=== PATIENT | female | born 1960 | race Caucasian/White ===

== ENCOUNTER 2016-10-16 16:20 | Inpatient (IN) | payer SELFPAY ==
[~2016-10-16] VITALS: Ht 167.6 cm; Wt 78.1 kg
--- NOTE | 2016-10-16 14:16 | NUR ---
ADMISSION TO MEDICAL UNIT VSS. RA. RATING PAIN IN LEFT KNEE 03/30. TRANSFERRED FROM WHEELCHAIR TO BED WITH X1 ASSIST, PIVOT. MOTHER IN LAW PRESENT.
--- OUTSIDE RECORDS SUMMARY | 2016-10-16 16:29 | XMS REPORT | Continuity of Care Document ---
Author Author [facility] Address [address] [place] [address] Care Team Providers Care Licensed Midwife Name Role Shaniqua Gambino AMILCAR Casanova Unavailable Unavailable Insurance Providers Payer Name Policy Number Subscriber Name Relationship Self-Pay Self-Pay NEFTALY AYOUB Self Advance Directives Directive Response Recorded Date/Time Advance Directive Information: AD BROCHURE GIVEN TO PT 10/02/16 3:15pm Chief Complaint and Reason for Visit Reason for Visit FALL Problems Active Medical Problems Problem Onset Date Recorded Date Status Influenza due to Influenza A virus Unknown 06/17/13 Active High ankle sprain of right lower extremity Unknown 04/20/15 Active Sinusitis chronic, frontal Unknown 08/19/16 Active GERD (gastroesophageal reflux disease) Unknown 09/04/16 Active Fall Unknown 10/02/16 Active Hip pain, bilateral Unknown 10/02/16 Active Knee pain, bilateral Unknown 10/02/16 Active Medications Current Home Medications Medication Dose Units Route Directions Days/Qty Instructions Start Date Omeprazole (Prilosec 20MG CAP) 20 MG UD.CAP 20 MG BY MOUTH TWICE DAILY 20 09/24/16 Ondansetron (Zofran Odt) 4 MG TAB.RAPDIS 4 MG BY MOUTH EVERY 6 HOURS NEEDED PRN NAUSEA AND VOMITING Sodium Chloride 1 GM TAB 1 GM BY MOUTH DAILY Past Home Medications Medication Directions Ordered Status [Energy Supplement] , Po DAILY Unknown Discontinued Multivits, Dayron, Min/Folic Acid (Multi For Her 50 Plus Softgel) 400 Mcg Capsule Capsule, 1 Cap Po DAILY Unknown Discontinued Sulfamethoxazole/Trimethoprim* (Bactrim Ds 800-160 Mg*) 1 Each Tablet Tablet, 1 Tab By Mouth EVERY 12 HOURS Unknown Discontinued Social History Problem Response Recorded Date Drug Use none 04/20/15 Alcohol Use none 04/20/15 Hospital Discharge Instructions No hospital discharge instructions. Plan of Care Discharge Date 10/02/16 Disposition HOME/SELF CARE Condition at Discharge Stable Instructions/Education Provided Fall Prevention (ED) Prescriptions See Medications Section Referrals Jocelyne Gambino APRN - Additional Instructions/Education Home to rest. There are no fractures present. Be sure to change positions carefully. Follow up with your primary care provider early next week. Return with new or worsening symptoms. Care Plan and Goals Problem: Fall Goal: Prevention of further falls. Plan: Refer to patient instructions provided. Functional Status No functional status results. Allergies, Adverse Reactions, Alerts Allergen Type Severity Reaction Status Last Updated No Known Allergies Allergy Unknown Active 10/02/16 Immunizations Name Date Given Type *Flu Shot: None Historical *Tetanus Shot: Less than 5 Years Historical Vital Signs Vital Reading Collection Date/Time Result Blood Pressure 10/02/16 3:32pm 108/58 Patient Temperature 10/02/16 3:32pm 97.2 Temperature Source 10/02/16 3:32pm Temporal Respiratory Rate 10/02/16 3:32pm 18 Height 10/02/16 3:32pm 5 ft 6 in Weight 10/02/16 3:32pm 150 lb 7 oz Body Mass Index 10/02/16 3:32pm 24.3 Pulse Rate 09/29/16 9:14am 90 Bedside Pulse Oximetry 09/29/16 9:14am 98 Height 09/29/16 7:03am 167.64 cm Weight 09/29/16 7:03am 68.039 kg Results [place] [id number] ED PHYSICIAN DOCUMENTATION Patient Name: NEFTALY AYOUB : 62 Unit #: [id number] Patient's Service Date: 09/24/16 ED Physician: Anna Copeland MD (ED) Primary Physician: Jocelyne Gambino APRN History of Present Illness General Chief Complaint abdominal pain Stated Complaint abdominal pain Time Seen by Provider 1040 Source patient Exam Limitations no limitations History of Present Illness Initial Comments The patient has chronic abdominal pain. She was here in the ED recently and diagnosed with GERD. She did drink alcohol heavily but reports she has not drank alcohol since her previous visit to the ED. Location abdomen Context with history of GERD Quality achy Severity moderate Duration chronic but worse Timing continuous Associated Symptoms dry heaves Allergies Coded Allergies: No Known Allergies (09/24/16) Home Medications Reported Medications Sodium Chloride 1 GM BY MOUTH DAILY Sulfamethoxazole/Trimethoprim* (Bactrim DS 800-160 MG*) 1 TAB BY MOUTH Q12H Ondansetron (Zofran Odt) 4 MG BY MOUTH Q6H PRN PRN NAUSEA AND VOMITING Hydrocodone 5MG/Acet 325MG ([place] 5-325 Tablet) 1 TAB BY MOUTH Q4H PRN PRN PAIN Review of Systems Review of Systems Was ROS Completed? Yes Constitutional Reports chills, Denies fever ENT Denies nose congestion Respiratory Denies cough, Denies short of breath Cardiovascular Denies chest pain Gastrointestinal Reports abdominal pain, Reports constipation, Reports nausea, Reports vomiting ( dry heaves), Denies diarrhea, Denies bloody stools Genitourinary Reports decreased urination, Reports other (dark urine) Musculoskeletal Denies back pain Past Medical History Past Medical History Medical History GERD Surgical History hysterectomy, left shoulder surgery Social History Smoker Current every day smoker Alcohol (Age 13 & Up) denies alcohol use (for the past few weeks) Drugs (Age 13 & Up) denies drug use Physical Exam Physical Exam Nursing Assessment Reviewed Yes Initial Vital Signs Vital Signs Result Date Time Pulse Ox 100 09/24 1038 B/P 98/67 09/24 1038 Temp 97.0 09/24 1038 Pulse 127 09/24 1038 Resp 18 09/24 1038 Constitutional well developed, well nourished, no apparent distress Ear, Nose, Throat hearing grossly normal Neck normal inspection, supple Respiratory no respiratory distress, normal breath sounds, no accessory muscle use Cardiovascular regular rate/rhythm, no murmur Gastrointestinal soft, normal bowel sounds, tenderness (mild epigastric) Musculoskeletal normal strength Skin normal color, warm/dry Neurological no motor deficit Psychiatric alert, oriented, normal mood/affect Results Results Labs Laboratory Tests 09/24 09/24 1055 1121 Chemistry Sodium (135 - 150 mmol/L) 131 L Potassium (3.4 - 5.2 mmol/L) 3.8 Chloride (100 - 112 mmol/L) 94 L Carbon Dioxide (21 - 33 meq/L) 25 Anion Gap (8 - 16 mmol/L) 12 BUN (5 - 21 mg/dl) 10 Creatinine (0.60 - 1.30 mg/dl) 1.13 GFR Calculation (> 60 mL/Min) 53 Glucose (70 - 99 mg/dl) 124 H Calcium (8.6 - 10.5 mg/dl) 10.2 Total Bilirubin (0.0 - 1.2 mg/dl) 0.8 AST (6 - 37 U/L) 32 ALT (12 - 78 U/L) 32 Alkaline Phosphatase (46 - 116 U/L) 110 Total Protein (6.4 - 8.2 g/dl) 7.3 Albumin (3.3 - 4.5 g/dl) 3.3 Albumin/Globulin Ratio (0.7 - 2.0) 0.8 Lipase (65 - 230 U/L) 118 Hematology WBC (4.5 - 11.0 10^3/uL) 8.0 RBC (3.50 - 5.40 10^6/uL) 3.98 Hgb (12.0 - 16.0 g/dl) 15.4 Hct (36 - 48 %) 46.3 MCV (79 - 99 fL) 116.4 H MCH (25.0 - 34.0 pg) 38.7 H MCHC (31.0 - 36.0 g/dL) 33.2 RDW (11.0 - 15.0 %) 18.0 H Plt Count (130 - 400 10^3/uL) 339 MPV (7.0 - 11.0 fL) 8.9 Neutrophils (Manual) (50 - 65 %) 74 H Neutrophils # (1.0 - 8.0 #) 5.9 Lymphocytes (Manual) (15 - 45 %) 23 Lymphocytes # (1.0 - 3.0 #) 1.8 Monocytes (Manual) (0 - 10 %) 3 Monocytes # (0.0 - 1.0 #) 0.2 Eosinophils # (0.0 - 0.4 #) 0.0 Basophils # (0.0 - 0.2 #) 0.0 Anisocytosis 2+ Macrocytosis 3+ Toxicology Serum Alcohol (0 mg/dl) 0 Urines Urine Color (Yellow) Yellow Urine Appearance (Clear) Turbid H Urine pH (4.5 - 7.5) 7.5 Ur Specific [place] (1.010 - .025) 1.020 Urine Protein (Negative) 1+ H Urine Ketones (Negative) Trace H Urine Blood (Negative) Negative Urine Nitrate (Negative) Negative Urine Bilirubin (Negative) 1+ H Urine Urobilinogen (<=1.0) 1.0 Ur Leukocyte Esterase (Negative) Negative Urine WBC (0 - 5) 10 - 25 H Ur Epithelial Cells (5 - 10) 5 - 10 Ur Renal Epithelial Cell (0 - 2) 2 - 5 Amorphous Crystals (None Seen) 2+ H Urine Bacteria (Trace) 1+ H Hyaline Casts (0 - 4) 2 - 4 Urine Mucus (None Seen) 1+ H Urine Glucose (Negative) Negative Microbiology Microbiology Date/Time Procedure - Status Source Growth 09/24 1121 Urine Culture - RECD UA Cath Progress Note Medications Medications Medications Given in the ED Sig/Cindy Start time Last Medication Dose Route Stop Time Status Admin Famotidine/Sodium 50 ML X1ED STA 09/24 1039 DC 04/06 Chloride IV 09/24 1053 1100 (FAMOTIDINE) Lidocaine/Diphenhydr/ 30 ML X1ED STA 09/24 1151 DC Alum/Mg/Simeth BY MOUTH 09/24 1152 (GI COCKTAIL) Ondansetron HCl 4 MG X1ED STA 09/24 1039 DC 04/06 (ZOFRAN) IV 09/24 1040 1057 Sodium Chloride 1,000 ML .Q1H 09/24 1039 DC 04/06 (0.9% Sodium IV 09/24 1138 1055 Chloride) Progress Note Progress Note Time 1158 Progress Note Lynnette NAYLOR arranged follow up with Dr. Hodge for possible EGD Departure Departure Clinical Impression Primary Impression: GERD (gastroesophageal reflux disease) Qualifiers: Esophagitis presence: esophagitis presence not specified Qualified Code: K21.9 - malik-esophageal reflux disease without esophagitis Time of Disposition 1159 Disposition HOME/SELF CARE Condition Improved Tobacco Education Education Handout Given Patient Instructions Gastroesophageal Reflux Disease (ED), How to Stop Smoking ( ED) Referrals Jocelyne Gambino APRN (PCP) Additional Instructions Follow up on Wednesday at [address] Hodge. Return to the ED as needed. Take prilosec 20 mg twice daily and zofran as prescribed. Prescriptions Current Visit Scripts Omeprazole (Prilosec 20MG CAP) 20 MG BY MOUTH BID #20 CAP Ondansetron Odt (Zofran Odt) 1 TAB BY MOUTH Q6H PRN PRN NAUSEA AND VOMITING #15 TAB Anna Copeland MD Electronically Signed 09/24/16 1202 Procedures Procedure Status Date Provider(s) EGD BIOPSY SINGLE/MULTIPLE Completed 09/29/16 Juan Hodge MD Encounters Encounter Location Arrival/Admit Date Discharge/Depart Date Attending Provider Departed Emergency [facility] 10/02/16 3:15pm 10/02/16 4:10pm Min, (ED) Anna Meeks MD Registered Clinical [facility] 10/01/16 0:55am AMILCAR Gambino Departed Surgical Day Care [facility] 09/29/16 0:06am 09/29/16 9 :35am Juan Hodge MD Departed Emergency [facility] 09/24/16 10:36am 09/24/16 12:28pm Min (ED) Anna Meeks MD Departed Emergency [facility] 09/04/16 1:03pm 09/04/16 3:10pm Min (ED) Anna Meeks MD Departed Emergency [facility] 08/19/16 5:36pm 08/19/16 6:39pm Amrit Eugene MD Encounter Diagnosis Fall Bilateral hip pain Pain in both knees
--- OUTSIDE RECORDS SUMMARY | 2016-10-16 16:29 | XMS REPORT | Continuity of Care Document ---
Author Author [facility] Address [address] [place] [address] Care Team Providers Care Tea Room Manager Name Role Phone Abhishek Aden Unavailable [phone] Insurance Providers Payer Name Policy Number Subscriber Name Relationship [employer] [id number] NEFTALY ANITRA PATIENT/SELF Advance Directives Directive Response Recorded Date/Time Advance Directive Information: AD BROCHURE GIVEN TO PT 04/20/15 5:46pm Chief Complaint and Reason for Visit Reason for Visit High ankle sprain of right lower extremity Problems Medical Problems Problem Onset Date Status Influenza due to Influenza A virus Unknown Active High ankle sprain of right lower extremity Unknown Active Medications Medication Dose Route Sig Days/Qty Instructions Order Date Discontinued Date Status Multivits, Dayron, Min/Folic Acid (Multi For Her 50 Plus Softgel) 400 MCG CAPSULE 1 CAP OPHTHALMIC DAILY Active [ENERGY SUPPLEMENT] OPHTHALMIC DAILY 10/09/14 Discontinued Pantoprazole (Protonix) 40 MG UD.TAB 40 MG OPHTHALMIC DAILY Active Social History Social History Problem Response Recorded Date/Time Alcohol Use none 04/20/15 7:17pm Drug Use none 04/20/15 7:17pm Hospital Discharge Instructions No hospital discharge instructions. Plan of Care Discharge Date 04/20/15 9:05pm Disposition HOME/SELF CARE Condition at Discharge Satisfactory Instructions/Education Provided DI for Ankle Sprain Prescriptions See Medications Section Referrals Abhishek Aden Additional Instructions/Education YOU HAVE A HIGH ANKLE SPRAIN IT CAN HURT ON THE INSIDE MUCH IT HURTS THE OUTSIDE WEAR SPLINT TAKE 2 ALEVE IN AM AND 2 ALEVE IN THE PM DAILY FOLLOWUP WITH PRIMARY CARE OR ORTHOPEDICS Care Plan and Goals Problem: Ankle Injury Goal: Rule out or identify any ankle injury. Relief of pain, stabilize. Plan: Refer to patient instructions provided. Functional Status No functional status results. Allergies, Adverse Reactions, Alerts Allergen Type Severity Reaction Status Last Updated No Known Allergies Allergy Unknown Active 04/20/15 Immunizations Name Date Given Type *Flu Shot: None Historical *Tetanus Shot: Less than 10 Years Historical Vital Signs Vital Reading Collection Date/Time Result Blood Pressure 04/20/15 5:46pm 112/68 Patient Temperature 04/20/15 5:46pm 97.4 Temperature Source 04/20/15 5:46pm ORL Respiratory Rate 04/20/15 5:46pm 14 Pulse Rate 04/20/15 5:46pm 100 Bedside Pulse Oximetry 04/20/15 5:46pm 95 Height 04/20/15 5:46pm 5 ft 5 in Weight 04/20/15 5:46pm 160 lb Body Mass Index 04/20/15 5:46pm 26.6 Procedures No Known History of Procedures. Results Test Source Date Result Interp. Ref. Range Comments Basophils # 04/20/15 0.1 10^3/uL 0.0 - 0.2 Basophils % 04/20/15 1.2 % 0.0 - 2.0 Eosinophils # 04/20/15 0.2 10^3/uL 0.0 - 0.4 Eosinophils % 04/20/15 3.2 % 0.0 - 6.0 Hematocrit 04/20/15 43.2 % 36 - 48 Hemoglobin 04/20/15 14.4 g/dl 12.0 - 16.0 Lymphocytes # 04/20/15 1.9 10^3/uL 1.0 - 3.0 Lymphocytes % 04/20/15 39.3 % 15.0 - 45.0 Mean Corpuscular Hemoglobin 04/20/15 33.2 pg 25.0 - 34.0 Mean Corpuscular Hemoglobin Concent 04/20/15 33.4 g/dL 31.0 - 36.0 Mean Corpuscular Volume 04/20/15 99.5 fL H 79 - 99 Mean Platelet Volume 04/20/15 7.8 fL 7.0 - 11.0 Monocytes # 04/20/15 0.4 10^3/uL 0.0 - 1.0 Monocytes % 04/20/15 8.8 % 1.0 - 12.0 Neutrophils # 04/20/15 2.3 10^3/uL 1.0 - 8.0 Neutrophils % 04/20/15 47.5 % 43.0 - 72.0 Platelet Count 04/20/15 263 10^3/uL 130 - 400 Red Blood Count 04/20/15 4.35 10^6/uL 3.50 - 5.40 Red Cell Distribution Width 04/20/15 13.3 % 11.0 - 15.0 White Blood Count 04/20/15 4.8 10^3/uL 4.5 - 11.0 D-Dimer 04/20/15 < 0.27 ug/ml < 0.50 - Alanine Aminotransferase (ALT/SGPT) 04/20/15 40 U/L 12 - 78 Albumin 04/20/15 3.3 g/dl 3.3 - 4.5 Albumin/Globulin Ratio 04/20/15 0.9 0.7 - 2.0 Alkaline Phosphatase 04/20/15 130 U/L H 46 - 116 Anion Gap 04/20/15 10 mmol/L 8 - 16 Aspartate Amino Transf (AST/SGOT) 04/20/15 42 U/L H 6 - 37 Blood Urea Nitrogen 04/20/15 5 mg/dl 5 - 21 C-Reactive Protein, Quantitative 04/20/15 < 2.0 mg/L 0.0 - 9.0 Calcium Level 04/20/15 9.0 mg/dl 8.6 - 10.5 Carbon Dioxide Level 04/20/15 26 meq/L 21 - 33 Chloride Level 04/20/15 98 mmol/L L 100 - 112 Creatinine 04/20/15 0.70 mg/dl 0.60 - 1.30 Glomerular Filtration Rate Calc 04/20/15 > 60 mL/Min > 60 - Glucose Level 04/20/15 112 mg/dl H 70 - 99 Potassium Level 04/20/15 4.1 mmol/L 3.4 - 5.2 Sodium Level 04/20/15 134 mmol/L L 135 - 150 Total Bilirubin 04/20/15 0.2 mg/dl 0.0 - 1.2 Total Protein 04/20/15 6.9 g/dl 6.4 - 8.2 Uric Acid 04/20/15 4.8 mg/dl 2.4 - 6.4 Lymphocytes (Manual) 08/16/08 26 15 - 45 Manual Differential 08/16/08 Manual Diff - Monocytes (Manual) 08/16/08 3 0 - 10 Neutrophils (Manual) 08/16/08 71 H 50 - 65 Encounters Encounter Location Date/Time Departed [facility] 04/20/15 9:05pm Recent Diagnosis High ankle sprain of right lower extremity
--- OUTSIDE RECORDS SUMMARY | 2016-10-16 16:29 | XMS REPORT | Continuity of Care Document ---
Author Author [facility] Address [address] [place] [address] Care Team Providers Care Test Engineer Nuclear Equipment Name Role Shaniqua Gambino AMILCAR Casanova Unavailable Unavailable Insurance Providers Payer Name Policy Number Subscriber Name Relationship Self-Pay Self-Pay NEFTALY AYOUB Self Advance Directives Directive Response Recorded Date/Time Advance Directive Information: AD BROCHURE GIVEN TO PT 09/24/16 10:38am Chief Complaint and Reason for Visit Reason for Visit ABD PAIN Problems Active Medical Problems Problem Onset Date Recorded Date Status Influenza due to Influenza A virus Unknown 06/17/13 Active High ankle sprain of right lower extremity Unknown 04/20/15 Active Sinusitis chronic, frontal Unknown 08/19/16 Active GERD (gastroesophageal reflux disease) Unknown 09/04/16 Active Medications Current Home Medications Medication Dose Units Route Directions Days/Qty Instructions Start Date Hydrocodone 5MG/Acet 325MG ([place] 5-325 Tablet) 1 EACH TABLET 1 TAB BY MOUTH EVERY 4 HOURS NEEDED PRN PAIN Omeprazole (Prilosec 20MG CAP) 20 MG UD.CAP 20 MG BY MOUTH TWICE DAILY 20 09/24/16 Ondansetron (Zofran Odt) 4 MG TAB.RAPDIS 4 MG BY MOUTH EVERY 6 HOURS NEEDED PRN NAUSEA AND VOMITING Ondansetron Odt (Zofran Odt) 4 MG TAB 1 TAB BY MOUTH EVERY 6 HOURS NEEDED PRN NAUSEA AND VOMITING 15 09/24/16 Sodium Chloride 1 GM TAB 1 GM BY MOUTH DAILY Sulfamethoxazole/Trimethoprim* (Bactrim DS 800-160 MG*) 1 EACH TABLET 1 TAB BY MOUTH EVERY 12 HOURS Past Home Medications Medication Directions Ordered Status [Energy Supplement] , Po DAILY Unknown Discontinued Multivits, Dayron, Min/Folic Acid (Multi For Her 50 Plus Softgel) 400 Mcg Capsule Capsule, 1 Cap Po DAILY Unknown Discontinued Social History Problem Response Recorded Date Drug Use none 04/20/15 Alcohol Use none 04/20/15 Hospital Discharge Instructions No hospital discharge instructions. Plan of Care Discharge Date 09/24/16 Disposition HOME/SELF CARE Condition at Discharge Improved Instructions/Education Provided How to Stop Smoking (ED) Gastroesophageal Reflux Disease (ED) Prescriptions See Medications Section Referrals Jocelyne Gambino APRN - Additional Instructions/Education Follow up on Wednesday at [address] Hodge. Return to the ED as needed. Take prilosec 20 mg twice daily and zofran as prescribed. Care Plan and Goals Problem: Abdominal Pain Goal: Relief of abdominal pain. Plan: Refer to patient instructions provided. Functional Status No functional status results. Allergies, Adverse Reactions, Alerts Allergen Type Severity Reaction Status Last Updated No Known Allergies Allergy Unknown Active 09/24/16 Immunizations Name Date Given Type *Flu Shot: None Historical *Tetanus Shot: Unknown Historical Vital Signs Vital Reading Collection Date/Time Result Blood Pressure 09/24/16 1:09pm 117/71 Patient Temperature 09/24/16 10:38am 97 Temperature Source 09/24/16 10:38am Temporal Respiratory Rate 09/24/16 1:09pm 17 Pulse Rate 09/24/16 1:09pm 105 Bedside Pulse Oximetry 09/24/16 1:09pm 97 Height 09/24/16 10:38am 5 ft 6 in Weight 09/24/16 10:38am 150 lb Body Mass Index 09/24/16 10:38am 24.2 Results [place] [id number] ED PHYSICIAN DOCUMENTATION Patient Name: NEFTALY AYOUB : 62 Unit #: [id number] Patient's Service Date: 09/24/16 ED Physician: Anna Coepland MD (ED) Primary Physician: Jocelyne Gambino APRN [...] PRN NAUSEA AND VOMITING Hydrocodone 5MG/Acet 325MG ([place] 5-325 Tablet) 1 TAB BY MOUTH Q4H [...] pH (4.5 - 7.5) 7.5 Ur Specific [place] (1.010 - .025) 1.020 Urine Protein (Negative) [...] Copeland MD Electronically Signed 09/24/16 1202 Procedures No Known History of Procedures. Encounters Encounter Location Arrival/Admit Date Discharge/Depart Date Attending Provider Departed [facility] 09/24/16 10:36am 09/24/16 12:28pm Min (ED) Anna Meeks MD Departed [facility] 09/04/16 1:03pm 09/04/16 3:10pm Min (ED) Anna Meeks MD Departed [facility] 08/19/16 5:36pm 08/19/16 6:39pm Amrit Eugene MD Encounter Diagnosis Gastroesophageal reflux disease
--- OUTSIDE RECORDS SUMMARY | 2016-10-16 16:29 | XMS REPORT | Continuity of Care Document ---
Author Author [facility] Address [address] [place] [address] Care Team Providers Care Handhole Machine Operator Name Role Phone DOCTOR, OUT OF TOWN Unavailable Unavailable Insurance Providers Payer Name Policy Number Subscriber Name Relationship * [id number] NEFTALY AYOUB PATIENT/SELF Advance Directives Directive Response Recorded Date/Time Advance Directive Information: AD BROCHURE GIVEN TO PT 08/19/16 5:36pm Chief Complaint and Reason for Visit Reason for Visit THRTPAIN Problems Active Medical Problems Problem Onset Date Recorded Date Status Influenza due to Influenza A virus Unknown 06/17/13 Active High ankle sprain of right lower extremity Unknown 04/20/15 Active Sinusitis chronic, frontal Unknown 08/19/16 Active Medications Current Home Medications Medication Dose Units Route Directions Days/Qty Instructions Start Date Azithromycin* (Zithromax*) 500 MG TAB 500 MG BY MOUTH DAILY 3 08/19/16 Multivitamin (Daily Multiple Vitamin) 1 EACH TABLET 1 TAB BY MOUTH DAILY Pantoprazole (Protonix) 40 MG UD.TAB 40 MG BY MOUTH DAILY Past Home Medications Medication Directions Ordered Status [Energy Supplement] , Po DAILY Unknown Discontinued Multivits, Dayron, Min/Folic Acid (Multi For Her 50 Plus Softgel) 400 Mcg Capsule Capsule, 1 Cap Po DAILY Unknown Discontinued Social History Problem Response Recorded Date Drug Use none 04/20/15 Alcohol Use none 04/20/15 Hospital Discharge Instructions No hospital discharge instructions. Plan of Care Discharge Date 08/19/16 Disposition HOME/SELF CARE Condition at Discharge Stable Instructions/Education Provided How to Stop Smoking (ED) Sinusitis (ED) Rhinosinusitis (ED) Prescriptions See Medications Section Referrals OUT OF TOWN DOCTOR - Care Plan and Goals Problem: Cough Goal: Relief of cough. Plan: Refer to patient instructions provided. Functional Status No functional status results. Allergies, Adverse Reactions, Alerts Allergen Type Severity Reaction Status Last Updated No Known Allergies Allergy Unknown Active 08/19/16 Immunizations Name Date Given Type *Flu Shot: None Historical *Tetanus Shot: Less than 10 Years Historical Vital Signs Vital Reading Collection Date/Time Result Blood Pressure 08/19/16 5:38pm 128/77 Patient Temperature 08/19/16 5:38pm 98.0 Temperature Source 08/19/16 5:38pm Temporal Respiratory Rate 08/19/16 5:38pm 16 Pulse Rate 08/19/16 5:38pm 112 Bedside Pulse Oximetry 08/19/16 5:38pm 97 Height 08/19/16 5:38pm 5 ft 6 in Weight 08/19/16 5:38pm 185 lb Body Mass Index 08/19/16 5:38pm 29.9 Results [place] [id number] ED PHYSICIAN DOCUMENTATION Patient Name: NEFTALY AYOUB : 62 Unit #: [id number] Patient's Service Date: 08/19/16 ED Physician: Amrit Eugene MD Primary Physician: OUT OF TOWN DOCTOR History of Present Illness General Chief Complaint Throat Pain Stated Complaint THRTPAIN Time Seen by Provider 1800 Source patient Exam Limitations language barrier History of Present Illness Initial Comments ST body aches mild cough with nausea, vomiting and lose stools Location generalized Context present at rest Severity moderate Duration days Allergies Coded Allergies: No Known Allergies (08/19/16) Home Medications Reported Medications Multivitamin (Daily Multiple Vitamin) 1 TAB BY MOUTH DAILY Pantoprazole (Protonix) 40 MG BY MOUTH DAILY Discontinued Reported Medications Multivits, Dayron, Min/Folic Acid (Multi For Her 50 Plus Softgel) 1 CAP PO DAILY Review of Systems Review of Systems Was ROS Completed? Yes Constitutional Reports malaise, Denies fever, Denies chills, Denies diaphoresis, Denies dizziness Eyes Denies eye pain, Denies blurred vision, Denies double vision Respiratory Reports cough, Denies short of breath, Denies wheezing, Denies stridor, Denies prolonged expiration Cardiovascular Denies chest pain, Denies palpitations, Denies syncope Gastrointestinal Denies abdominal pain, Denies constipation, Denies diarrhea, Denies bloody stools Musculoskeletal Denies neck pain, Denies back pain, Denies joint pain, Denies joint swelling Neurological Denies headache, Denies numbness, Denies paresthesia, Denies tonic clonic movement, Denies tingling Psychiatric Denies anxiety, Denies depression, Denies flight of ideas, Denies hallucinations All Other Systems Reviewed and Negative Past Medical History Social History Smoker Current every day smoker Physical Exam Physical Exam Exam Limitations clinical condition Nursing Assessment Reviewed Yes Initial Vital Signs Vital Signs Result Date Time Pulse Ox 97 08/19 1737 B/P 128/77 08/19 1737 Temp 98.0 08/19 1737 Pulse 112 08/19 1737 Resp 16 08/19 1737 Constitutional well developed, well nourished, mild distress Eyes bilateral eyes PERRL, bilateral eyes EOMI, bilateral eyes pupils equal, bilateral eyes conjuctivae WNL Ear, Nose, Throat hearing grossly normal, normal TM (R), normal TM (L), nasal congestion, pharyngeal erythema, pharyngeal swelling Respiratory no respiratory distress, normal breath sounds Cardiovascular regular rate/rhythm, no murmur, no edema Gastrointestinal soft, non tender, normal bowel sounds Musculoskeletal gait WNL, normal strength, no vertebral tenderness Neurological clothing man II-XII normal, no motor deficit, no sensory deficit Results Results Microbiology Microbiology Date/Time Procedure - Status Source Growth 08/19 1805 Influenza Types A,B Antigen - COMP Nasal/Phar no flu (Amrit Eugene MD) Progress Note Medications Medications Medications Given in the ED Sig/Cindy Start time Last Medication Dose Route Stop Time Status Admin Ketorolac 60 MG ONE ONE 08/19 1759 DC 08/19 Tromethamine IM 08/19 1800 1820 (TORADOL) Departure Departure Clinical Impression Primary Impression: Sinusitis chronic, frontal Time of Disposition 182 Disposition HOME/SELF CARE Condition Stable Tobacco Education Education Handout Given Patient Instructions How to Stop Smoking (ED), Rhinosinusitis (ED), Sinusitis ( ED) Referrals OUT OF TOWN DOCTOR (PCP) follow up if not improved in 3 d Prescriptions Current Visit Scripts Azithromycin* (Zithromax*) 500 MG BY MOUTH DAILY #3 TAB Amrit Eugene MD Electronically Signed 08/19/16 1830 Procedures No Known History of Procedures. Encounters Encounter Location Arrival/Admit Date Discharge/Depart Date Attending Provider Departed [facility] 08/19/16 5:36pm 08/19/16 6:39pm Amrit Eugene MD Encounter Diagnosis Chronic frontal sinusitis
--- OUTSIDE RECORDS SUMMARY | 2016-10-16 16:29 | XMS REPORT | Continuity of Care Document ---
Author Author [facility] Address [address] [place] [address] Support Name Relationship Address AMILCAR Prescott Caregiver [address] [place] [address] Unavailable Amrit Eugene MD Caregiver [address] [place], [place] [id number] CHAS AYOUB Next Of Kin [address] [place] [address] Care Team Providers Care Electrodynamicist Name Role Shaniqua Gambino AMILCAR Casanova Unavailable Unavailable Insurance Providers Payer Name Policy Number Subscriber Name Relationship Self-Pay Self-Pay NEFTALY AYOUB Self Advance Directives Directive Response Recorded Date/Time Advance Directive Information: AD BROCHURE GIVEN TO PT 10/08/16 1:39pm Chief Complaint and Reason for Visit Reason for Visit WEAKNESS Problems Active Medical Problems Problem Onset Date Recorded Date Status Influenza due to Influenza A virus Unknown 06/17/13 Active High ankle sprain of right lower extremity Unknown 04/20/15 Active Sinusitis chronic, frontal Unknown 08/19/16 Active GERD (gastroesophageal reflux disease) Unknown 09/04/16 Active Fall Unknown 10/02/16 Active Hip pain, bilateral Unknown 10/02/16 Active Knee pain, bilateral Unknown 10/02/16 Active Paresthesia of bilateral legs Unknown 10/06/16 Active Alcohol abuse Unknown 10/06/16 Active Vitamin B12 deficiency Unknown 10/06/16 Active Hyponatremia Unknown 10/08/16 Active Rapidly progressive weakness Unknown 10/08/16 Active Medications Current Home Medications Medication Dose Units Route Directions Days/Qty Instructions Start Date Omeprazole (Prilosec 20MG CAP) 20 MG UD.CAP 20 MG BY MOUTH TWICE DAILY 09/24/16 Ondansetron (Zofran Odt) 4 MG TAB.RAPDIS [...] discharge instructions. Plan of Care Discharge Date 10/08/16 Disposition HOME/SELF CARE Prescriptions See Medications Section Referrals Jocelyne Gambino APRN - Functional Status No functional status results. Allergies, Adverse Reactions, Alerts Allergen Type Severity Reaction Status Last Updated No Known Allergies Allergy Unknown Active 10/02/16 Immunizations Name Date Given Type *Flu Shot: None Historical *Tetanus Shot: Up To Date Historical Vital Signs Vital Reading Collection Date/Time Result Blood Pressure 10/08/16 6:55pm 120/74 Patient Temperature 10/08/16 6:55pm 98.5 Temperature Source 10/08/16 1:41pm Oral Respiratory Rate 10/08/16 6:55pm 20 Pulse Rate 10/08/16 6:55pm 102 Bedside Pulse Oximetry 10/08/16 6:55pm 95 Height 10/08/16 1:41pm 5 ft 6 in Weight 10/08/16 1:41pm 154 lb Body Mass Index 10/08/16 1:41pm 24.9 Height 09/29/16 7:03am 167.64 cm Weight 09/29/16 7:03am 68.039 kg Results [place] [address] ED PHYSICIAN DOCUMENTATION Patient Name: NEFTALY AYOUB : 62 Unit #: [id number] Patient's Service Date: 10/08/16 ED Physician: Amrit Eugene MD Primary Physician: Jocelyne Gambino APRN History of Present Illness General Chief Complaint Weakness Stated Complaint WEAKNESS Time Seen by Provider [id number] Source patient History of Present Illness Initial Comments Pt CO progressive weakness over the last six weeks from working and taking care of her diabled to using a walker, to multiple falls to inability to get OOB Location generalized, head Context present at rest, awoke from sleep Quality denies pain, dull Severity moderate Duration just prior to arrival, since waking today Allergies Coded Allergies: No Known Allergies (10/02/16) Home Medications Active Scripts Omeprazole (Prilosec 20MG CAP) 20 MG BY MOUTH BID #20 CAP Prov: 09/24/16 Reported Medications Sodium Chloride 1 GM BY MOUTH DAILY Ondansetron (Zofran Odt) 4 MG BY MOUTH Q6H PRN PRN NAUSEA AND VOMITING Review of Systems Review of Systems Was ROS Completed? Yes Limited By clinical condition Constitutional Denies fever, Denies chills, Denies diaphoresis Eyes Denies eye pain, Denies blurred vision, Denies double vision Respiratory Denies cough, Denies short of breath, Denies wheezing Cardiovascular Denies chest pain, Denies palpitations, Denies syncope Gastrointestinal Denies abdominal pain, Denies constipation Musculoskeletal Denies neck pain, Denies back pain Neurological Denies headache, Denies numbness All Other Systems Reviewed and Negative Past Medical History Past Medical History Medical History GERD Surgical History hysterectomy, left shoulder surgery Social History Smoker Current every day smoker Physical Exam Physical Exam Exam Limitations clinical condition Nursing Assessment Reviewed Yes Initial Vital Signs Vital Signs Result Date Time Pulse Ox 96 10/08 1341 B/P 123/79 10/08 1341 Temp 97.4 10/08 1341 Pulse 108 10/08 1341 Resp 20 10/08 1341 Constitutional well developed, well nourished, moderate distress Ear, Nose, Throat hearing grossly normal, normal TM (R) Respiratory no respiratory distress, normal breath sounds Cardiovascular regular rate/rhythm, no murmur, no edema Gastrointestinal soft, non tender Musculoskeletal gait WNL, normal strength, no vertebral tenderness Neurological purse framer II-XII normal, no motor deficit, no sensory deficit Results Results Labs Laboratory Tests 10/08 1330 1330 1330 1449 Chemistry Sodium (135 - 150 mmol/L) 130 L Potassium (3.4 - 5.2 mmol/L) 4.5 Chloride (100 - 112 mmol/L) 93 L Carbon Dioxide (21 - 33 meq/L) 28 Anion Gap (8 - 16 mmol/L) 9 BUN (5 - 21 mg/dl) 6 Creatinine (0.60 - 1.30 mg/dl) 0.71 GFR Calculation (> 60 mL/Min) > 60 Glucose (70 - 99 mg/dl) 114 H Lactic Acid (0.4 - 2.0 mmol/L) 1.2 Calcium (8.6 - 10.5 mg/dl) 9.8 Total Bilirubin (0.0 - 1.2 mg/dl) 0.5 AST (6 - 37 U/L) 32 ALT (12 - 78 U/L) 37 Alkaline Phosphatase (46 - 116 U/L) 126 H Troponin I (0.00 - 0.05 ng/ml) < 0.02 Total Protein (6.4 - 8.2 g/dl) 6.9 Albumin (3.3 - 4.5 g/dl) 3.1 L Albumin/Globulin Ratio (0.7 - 2.0) 0.8 Procalcitonin (0.0 - 0.10 ng/ml) < 0.05 L Hematology WBC (4.5 - 11.0 10^3/uL) 7.2 RBC (3.50 - 5.40 10^6/uL) 3.45 L Hgb (12.0 - 16.0 g/dl) 13.8 Hct (36 - 48 %) 39.7 MCV (79 - 99 fL) 115.1 H MCH (25.0 - 34.0 pg) 39.9 H MCHC (31.0 - 36.0 g/dL) 34.7 RDW (11.0 - 15.0 %) 17.0 H Plt Count (130 - 400 10^3/uL) 355 MPV (7.0 - 11.0 fL) 7.8 Neutrophils (Manual) (50 - 65 %) 76 H Neutrophils # (1.0 - 8.0 #) 5.5 Lymphocytes (Manual) (15 - 45 %) 15 Lymphocytes # (1.0 - 3.0 #) 1.1 Monocytes (Manual) (0 - 10 %) 8 Monocytes # (0.0 - 1.0 #) 0.6 Eosinophils # (0.0 - 0.4 #) 0.0 Basophils (Manual) (0 - 2 %) 1 Basophils # (0.0 - 0.2 #) 0.1 Anisocytosis 1+ Macrocytosis 3+ 10/08 10/08 1514 1630 Chemistry Troponin I Cancelled Urines Urine Color (Yellow) Yellow Urine Appearance (Clear) Clear Urine pH (4.5 - 7.5) 7.5 Ur Specific [place] (1.010 - .025) 1.010 Urine Protein (Negative) Negative Urine Ketones (Negative) Negative Urine Blood (Negative) Negative Urine Nitrate (Negative) Positive H Urine Bilirubin (Negative) Negative Urine Urobilinogen (<=1.0) 0.2 Ur Leukocyte Esterase (Negative) Trace H Urine RBC (0 - 5) O - 2 Urine WBC (0 - 5) 2 - 4 Ur Epithelial Cells (5 - 10) 2 - 5 Amorphous Crystals (None Seen) 2+ H Urine Bacteria (Trace) 2+ H Urine Glucose (Negative) Negative Microbiology Microbiology Date/Time Procedure - Status Source Growth 10/08 1541 Blood Culture - RECD Blood 10/08 1514 Urine Culture - RECD UA Clean C Progress Note Medications Medications Medications Given in the ED Sig/Cindy Start time Last Medication Dose Route Stop Time Status Admin Sodium Chloride 1,000 ML .Q1H 10/08 1502 DC 10/08 (0.9% Sodium IV 10/08 1601 1524 Chloride) pt cont to have weakness (Amrit Eugene MD) Departure Departure Clinical Impression Primary Impression: Hyponatremia Secondary Impressions: Rapidly progressive weakness Time of Disposition 1640 Disposition HOME/SELF CARE Tobacco Education Tobacco Non-User Referrals Jocelyne Gambino APRN (PCP) Comments discussed with hositalist here, then Prashanth, then alna then Sherry and Dr Tilley agreed to accept her 40 min on the phne arranging transter Amrit Eugene MD Electronically Signed 10/08/16 1644 Procedures Procedure Status Date Provider(s) EGD BIOPSY SINGLE/MULTIPLE Completed 09/29/16 Juan Hodge MD Encounters Encounter Location Arrival/Admit Date Discharge/Depart Date Attending Provider Departed Emergency [facility] 10/08/16 1:39pm 10/08/16 6:55pm Amrit Eugene MD Departed Emergency [facility] 10/05/16 10:53pm 10/06/16 0:48am Mian Ruiz Jr, MD Departed Emergency [facility] 10/02/16 3:15pm 10/02/16 4:10pm Era (ED) Narendra ALBERT Registered Clinical [facility] 10/01/16 0:55am AMILCAR Gambino Departed Surgical Day Care [facility] 09/29/16 0:06am 09/29/16 9 :35am Juan Hodge MD Departed Emergency [facility] 09/24/16 10:36am 09/24/16 12:28pm Min (ED) Anna Meeks MD Departed Emergency [facility] 09/04/16 1:03pm 09/04/16 3:10pm Min (ED) Anna Meeks MD Departed Emergency [facility] 08/19/16 5:36pm 08/19/16 6:39pm Amrit Eugene MD Encounter Diagnosis Hyponatremia Rapidly progressive weakness
--- OUTSIDE RECORDS SUMMARY | 2016-10-16 16:29 | XMS REPORT | Continuity of Care Document ---
Author Author [facility] Address [address] [place] [address] Care Team Providers Care Mercury Recoverer Name Role Phone Unavailable Unavailable Insurance Providers Payer Name Policy Number Subscriber Name Relationship Self-Pay Self-Pay NEFTALY ANITRA Self Advance Directives Directive Response Recorded Date/Time Advance Directive Information: AD BROCHURE GIVEN TO PT 09/04/16 1:04pm Chief Complaint and Reason for Visit Reason for Visit CHEST PAIN Problems Active Medical Problems Problem Onset Date Recorded Date Status Influenza due to Influenza A virus Unknown 06/17/13 Active High ankle sprain of right lower extremity Unknown 04/20/15 Active Sinusitis chronic, frontal Unknown 08/19/16 Active GERD (gastroesophageal reflux disease) Unknown 09/04/16 Active Medications Current Home Medications Medication Dose Units Route Directions Days/Qty Instructions Start Date Hydrocodone/Acetaminophen (Hydrocodone/Apap 5/325) 1 EACH TABLET 1 TAB BY MOUTH EVERY 6 HOURS NEEDED PRN pain 10 09/04/16 NO KNOWN MEDS (NO KNOWN MEDICATIONS) 1 EA MIS Ondansetron Odt (Zofran Odt) 4 MG TAB 1 TAB BY MOUTH EVERY 6 HOURS NEEDED PRN NAUSEA AND VOMITING 10 09/04/16 Past Home Medications Medication Directions Ordered Status [Energy Supplement] , Po DAILY Unknown Discontinued Multivits, Dayron, Min/Folic Acid (Multi For Her 50 Plus Softgel) 400 Mcg Capsule Capsule, 1 Cap Po DAILY Unknown Discontinued Social History Problem Response Recorded Date Drug Use none 04/20/15 Alcohol Use none 04/20/15 Hospital Discharge Instructions No hospital discharge instructions. Plan of Care Discharge Date 09/04/16 Disposition HOME/SELF CARE Condition at Discharge Stable Instructions/Education Provided How to Stop Smoking (ED) Gastroesophageal Reflux Disease (ED) Prescriptions See Medications Section Additional Instructions/Education Follow up in the next few days for further evaluation. Return to the ED if worsening. Care Plan and Goals Problem: Chest Pain Goal: Relief of chest pain, rule out cardiac event. Plan: Refer to patient instructions provided. Functional Status No functional status results. Allergies, Adverse Reactions, Alerts Allergen Type Severity Reaction Status Last Updated No Known Allergies Allergy Unknown Active 09/04/16 Immunizations Name Date Given Type *Flu Shot: None Historical *Tetanus Shot: None Historical Vital Signs Vital Reading Collection Date/Time Result Blood Pressure 09/04/16 3:17pm 119/73 Patient Temperature 09/04/16 1:05pm 97.4 Temperature Source 09/04/16 1:05pm Temporal Respiratory Rate 09/04/16 3:17pm 18 Pulse Rate 09/04/16 3:17pm 87 Bedside Pulse Oximetry 09/04/16 3:17pm 97 Height 09/04/16 1:05pm 5 ft 5 in Weight 09/04/16 1:05pm 185 lb Body Mass Index 09/04/16 1:05pm 30.8 Results [place] [address] ED PHYSICIAN DOCUMENTATION Patient Name: NEFTALY AYOUB : 62 Unit #: [id number] Patient's Service Date: 09/04/16 ED Physician: Anna Copeland MD (ED) Primary Physician: History of Present Illness General Chief Complaint Chest Pain Stated Complaint CHEST PAIN Time Seen by Provider 1335 Source patient Exam Limitations no limitations History of Present Illness Initial Comments The patient has had chest pain for three weeks. She complains of numbness in both hands and both feet. She is chronically short of breath. Location chest Quality sharp Severity severe Duration weeks (three) Allergies Coded Allergies: No Known Allergies (09/04/16) Home Medications Reported Medications NO KNOWN MEDS (NO KNOWN MEDICATIONS) Review of Systems Review of Systems Was ROS Completed? Yes Constitutional Denies fever, Denies chills ENT Denies nose congestion Respiratory Reports cough (chronic and unchanged), Reports short of breath Cardiovascular Reports chest pain, Denies edema Gastrointestinal Reports nausea, Reports other (dry heaves), Denies abdominal pain, Denies constipation, Denies diarrhea, Denies vomiting Genitourinary Denies dysuria Musculoskeletal Denies neck pain, Denies back pain Neurological Reports numbness (both hands and both feet) Past Medical History Past Medical History Medical History denies medical problems Surgical History hysterectomy, left shoulder surgery Social History Smoker Current every day smoker Alcohol (Age 13 & Up) recently Physical Exam Physical Exam Nursing Assessment Reviewed Yes Initial Vital Signs Vital Signs Result Date Time Pulse Ox 100 09/04 1305 B/P 121/81 09/04 1305 Temp 97.4 09/04 1305 Pulse 94 09/04 1305 Resp 18 09/04 1305 Constitutional well developed, well nourished, no apparent distress Ear, Nose, Throat hearing grossly normal Neck normal inspection, supple, full range of motion Respiratory no respiratory distress, normal breath sounds, no accessory muscle use, chest wall tenderness Cardiovascular regular rate/rhythm, no murmur, no edema Gastrointestinal soft, non tender, normal bowel sounds Musculoskeletal normal strength Skin normal color, warm/dry Neurological no motor deficit Psychiatric alert, oriented, normal mood/affect Results Results Labs Laboratory Tests 09/04 09/04 09/04 1311 1313 1336 Chemistry Sodium (135 - 150 mmol/L) 138 Potassium (3.4 - 5.2 mmol/L) 3.2 L Chloride (100 - 112 mmol/L) 100 Carbon Dioxide (21 - 33 meq/L) 29 Anion Gap (8 - 16 mmol/L) 9 BUN (5 - 21 mg/dl) 6 Creatinine (0.60 - 1.30 mg/dl) 0.62 GFR Calculation (> 60 mL/Min) > 60 Glucose (70 - 99 mg/dl) 86 Calcium (8.6 - 10.5 mg/dl) 8.9 Total Bilirubin (0.0 - 1.2 mg/dl) 0.4 AST (6 - 37 U/L) 28 ALT (12 - 78 U/L) 26 Alkaline Phosphatase (46 - 116 U/L) 95 Troponin I (0.00 - 0.05 ng/ml) < 0.02 Total Protein (6.4 - 8.2 g/dl) 6.1 L Albumin (3.3 - 4.5 g/dl) 2.9 L Albumin/Globulin Ratio (0.7 - 2.0) 0.9 Lipase (65 - 230 U/L) 193 Hematology WBC (4.5 - 11.0 10^3/uL) 5.6 RBC (3.50 - 5.40 10^6/uL) 3.63 Hgb (12.0 - 16.0 g/dl) 13.7 Hct (36 - 48 %) 41.1 MCV (79 - 99 fL) 113.2 H MCH (25.0 - 34.0 pg) 37.7 H MCHC (31.0 - 36.0 g/dL) 33.3 RDW (11.0 - 15.0 %) 17.8 H Plt Count (130 - 400 10^3/uL) 257 MPV (7.0 - 11.0 fL) 8.3 Neutrophils (Manual) (50 - 65 %) 71 H Neutrophils # (1.0 - 8.0 #) 4.0 Lymphocytes (Manual) (15 - 45 %) 18 Lymphocytes # (1.0 - 3.0 #) 1.0 Monocytes (Manual) (0 - 10 %) 9 Monocytes # (0.0 - 1.0 #) 0.5 Eosinophils (Manual) (0 - 5 %) 2 Eosinophils # (0.0 - 0.4 #) 0.1 Basophils # (0.0 - 0.2 #) 0.0 Anisocytosis 1+ Macrocytosis 3+ Toxicology Serum Alcohol (0 mg/dl) 93 EKG EKG Time of EKG 1310 Rate [address] Findings nonspecific ST findings XRAY Read by radiologist Yes Reviewed by ED provider Yes (chest) Progress Note Medications Medications Medications Given in the ED Sig/Cindy Start time Last Medication Dose Route Stop Time Status Admin Aspirin 324 MG X1ED ONE 09/04 1311 DC 09/04 (Aspirin Chewable 81 BY MOUTH 09/04 1312 1334 MG TAB) Lidocaine/Diphenhydr/ 30 ML X1ED STA 09/04 1445 DC 09/04 Alum/Mg/Simeth BY MOUTH 09/04 1446 1455 (GI COCKTAIL) Progress Note Progress Note Time 1459 Progress Note improved Departure Departure Clinical Impression Primary Impression: GERD (gastroesophageal reflux disease) Qualifiers: Esophagitis presence: esophagitis presence not specified Qualified Code: K21.9 - Gastro-esophageal reflux disease without esophagitis Time of Disposition 1446 Disposition HOME/SELF CARE Condition Stable Tobacco Education Education Handout Given Patient Instructions Gastroesophageal Reflux Disease (ED), How to Stop Smoking ( ED) Additional Instructions Follow up in the next few days for further evaluation. Return to the ED if Prescriptions Current Visit Scripts Hydrocodone/Acetaminophen (Hydrocodone/Apap 5/325) 1 TAB BY MOUTH Q6H PRN PRN pain #10 TAB Ondansetron Odt (Zofran Odt) 1 TAB BY MOUTH Q6H PRN PRN NAUSEA AND VOMITING #10 TAB Anna Copeland MD Electronically Signed 09/04/16 1501 Procedures No Known History of Procedures. Encounters Encounter Location Arrival/Admit Date Discharge/Depart Date Attending Provider Departed Emergency [facility] 09/04/16 1:03pm 09/04/16 3:10pm Min (ED) Anna Meeks MD Departed Emergency [facility] 08/19/16 5:36pm 08/19/16 6:39pm Amrit Eugene MD Encounter Diagnosis Gastroesophageal reflux disease
--- OUTSIDE RECORDS SUMMARY | 2016-10-16 16:29 | XMS REPORT | Continuity of Care Document ---
Author Author [facility] Address [address] [place] [address] Care Team Providers Care Reworker Name Role Shaniqua Gambino APRN Jocelyne Unavailable Unavailable Insurance Providers Payer Name Policy Number Subscriber Name Relationship Self-Pay Self-Pay NEFTALY AYOUB Self Advance Directives Directive Response Recorded Date/Time Advance Directive Information: AD BROCHURE GIVEN TO PT 09/29/16 0:06am Chief Complaint and Reason for Visit Reason [...] Vital Reading Collection Date/Time Result Blood Pressure 09/29/16 9:14am 138/63 Patient Temperature 09/29/16 9:00am 97.4 Respiratory Rate 09/29/16 9:14am 16 Pulse Rate 09/29/16 9:14am 90 Bedside Pulse Oximetry 09/29/16 9:14am 98 Height 09/29/16 7:03am 167.64 cm Height 09/29/16 7:03am 5 ft 6 in Weight 09/29/16 7:03am 68.039 kg Weight 09/29/16 7:03am 150 lb Body Mass Index 09/29/16 7:03am 24.2 Temperature Source 09/24/16 10:38am Temporal Results [place] [address] ED PHYSICIAN DOCUMENTATION Patient Name: NEFTALY AYOUB : 62 Unit #: [id number] Patient's Service Date: 09/24/16 ED Physician: Anna [...] PRN NAUSEA AND VOMITING Hydrocodone 5MG/Acet 325MG (Corona 5-325 Tablet) 1 TAB BY MOUTH Q4H [...] pH (4.5 - 7.5) 7.5 Ur Specific Dragoon (1.010 - .025) 1.020 Urine Protein (Negative) [...] 50 ML X1ED STA 09/24 1039 DC 04/ Chloride IV 09/24 1053 1100 (FAMOTIDINE) Lidocaine/Diphenhydr/ 30 ML X1ED STA 09/24 1151 DC Alum/Mg/Simeth BY MOUTH 09/24 1152 (GI COCKTAIL) Ondansetron HCl 4 MG X1ED STA 09/24 1039 DC 04/ (ZOFRAN) IV 09/24 1040 1057 Sodium Chloride 1,000 ML .Q1H 09/24 1039 DC 04/ (0.9% Sodium IV 09/24 1138 1055 Chloride) [...] Arrival/Admit Date Discharge/Depart Date Attending Provider Departed Surgical Day Care [facility] 09/29/16 0:06am 09/29/16 9 :35am Juan Hodge MD Departed Emergency [facility] 09/24/16 10:36am 09/24/16 12:28pm Min (ED) Anna Meeks MD Departed Emergency [facility] 09/04/16 1:03pm 09/04/16 3:10pm Min (ED) Anna Meeks MD Departed [facility] 08/19/16 5:36pm 08/19/16 6:39pm Amrit Eugene MD Encounter Diagnosis Onset Date Influenza due to Influenza A virus High ankle sprain of right lower extremity Sinusitis chronic, frontal GERD (gastroesophageal reflux disease)
--- OUTSIDE RECORDS SUMMARY | 2016-10-16 16:29 | XMS REPORT | Continuity of Care Document ---
Author Author [facility] Address [address] [place] [address] Support Name Relationship Address AMILCAR Prescott Caregiver [address] [place] [address] Unavailable Mian Ruiz Jr, MD Caregiver [address] [place] [address] CHAS AYOUB Next Of Kin [address] [place] [address] Care Team Providers Care Sheather Name Role Shaniqua Gambino APRN Jocelyne Unavailable Unavailable Insurance Providers Payer Name Policy Number Subscriber Name Relationship Self-Pay Self-Pay NEFTALY AYOUB Self Advance Directives Directive Response Recorded Date/Time Advance Directive Information: AD BROCHURE GIVEN TO PT 10/05/16 10:53pm Chief Complaint and Reason for Visit Reason [...] Active Vitamin B12 deficiency Unknown 10/06/16 Active Medications Current Home Medications Medication Dose [...] discharge instructions. Plan of Care Discharge Date 10/06/16 Disposition HOME/SELF CARE Condition at Discharge Satisfactory Instructions/Education Provided Vitamin B12 Deficiency (ED) Prescriptions See Medications Section Referrals Joceylne Gambino APRN - Additional Instructions/Education follow up for further workup Care Plan and Goals Problem: Leg Pain Goal: Relief of leg pain. Plan: Refer to patient instructions provided. Functional Status No functional status results. Allergies, Adverse Reactions, Alerts Allergen Type Severity Reaction Status Last Updated No Known Allergies Allergy Unknown Active 10/02/16 Immunizations Name Date Given Type *Flu Shot: Current Historical *Tetanus Shot: Up To Date Historical Vital Signs Vital Reading Collection Date/Time Result Blood Pressure 10/06/16 0:02am 138/75 Patient Temperature 10/06/16 0:02am 95.3 Temperature Source 10/06/16 0:02am Oral Respiratory Rate 10/06/16 0:02am 20 Pulse Rate 10/06/16 0:02am 106 Bedside Pulse Oximetry 10/06/16 0:02am 99 Height 10/06/16 0:02am 5 ft 6 in Weight 10/06/16 0:02am 150.7 lb Body Mass Index 10/06/16 0:02am 24.3 Height 09/29/16 7:03am 167.64 cm Weight 09/29/16 7:03am 68.039 kg Results [address] [address] ED PHYSICIAN DOCUMENTATION Patient Name: NEFTALY AYOUB : 62 Unit #: [id number] Patient's Service Date: 10/05/16 ED Physician: Mian Ruiz Jr, MD Primary Physician: Jocelyne Gambino APRN History of Present Illness General Chief Complaint General Complaint Stated Complaint WEAKNESS Time Seen by Provider [id number] History of Present Illness Initial Comments here for numbness and tingling in her lower extremities. had an appointment today but had some wine and missed it. was not feeling vane. no wright, no change in bowel or bladder. Location generalized Context present at rest Quality denies pain Severity moderate Duration days Allergies Coded Allergies: No Known Allergies (10/02/16) Home Medications Active Scripts Omeprazole (Prilosec 20MG CAP) 20 MG BY MOUTH BID #20 CAP Prov: 09/24/16 Reported Medications Sodium Chloride 1 GM BY MOUTH DAILY Ondansetron (Zofran Odt) 4 MG BY MOUTH Q6H PRN PRN NAUSEA AND VOMITING Discontinued Reported Medications Sulfamethoxazole/Trimethoprim* (Bactrim DS 800-160 MG*) 1 TAB BY MOUTH Q12H Review of Systems Review of Systems Was ROS Completed? Yes Constitutional Reports weakness, Denies fever, Denies chills, Denies diaphoresis, Denies dizziness Eyes Denies loss of vision ENT Denies nose congestion, Denies throat pain Respiratory Denies cough, Denies short of breath Cardiovascular Denies chest pain, Denies palpitations Gastrointestinal Denies abdominal pain, Denies constipation, Denies diarrhea, Denies nausea, Denies vomiting Genitourinary Denies dysuria Musculoskeletal Denies muscle pain, Denies muscle stiffness Neurological Reports numbness, Reports paresthesia, Denies headache, Denies syncope Past Medical History Past Medical History Medical History GERD Surgical History hysterectomy, left shoulder surgery Social History Smoker Current every day smoker Physical Exam Physical Exam Nursing Assessment Reviewed Yes Initial Vital Signs Vital Signs Result Date Time Pulse Ox 99 10/06 0002 B/P 138/75 10/06 0002 Temp 95.3 10/06 0002 Pulse 106 10/06 0002 Resp 20 10/06 0002 Constitutional well developed, well nourished, mild distress Eyes bilateral eyes PERRL, bilateral eyes EOMI Ear, Nose, Throat normal TM (R), normal TM (L), nasal exam WNL, oral exam WNL Neck normal inspection, non-tender Respiratory no respiratory distress, normal breath sounds Cardiovascular regular rate/rhythm Gastrointestinal soft, non tender, normal bowel sounds Musculoskeletal gait WNL Skin normal color, warm/dry Neurological no motor deficit, no sensory deficit (sensation intact.) Results Results Labs Laboratory Tests 10/05 10/05 2325 2355 Chemistry Sodium (135 - 150 mmol/L) 135 Potassium (3.4 - 5.2 mmol/L) 4.1 Chloride (100 - 112 mmol/L) 98 L Carbon Dioxide (21 - 33 meq/L) 26 Anion Gap (8 - 16 mmol/L) 11 BUN (5 - 21 mg/dl) 2 L Creatinine (0.60 - 1.30 mg/dl) 0.49 L GFR Calculation (> 60 mL/Min) > 60 Glucose (70 - 99 mg/dl) 91 Calcium (8.6 - 10.5 mg/dl) 9.2 Total Bilirubin (0.0 - 1.2 mg/dl) 0.2 AST (6 - 37 U/L) 27 ALT (12 - 78 U/L) 33 Alkaline Phosphatase (46 - 116 U/L) 95 Total Protein (6.4 - 8.2 g/dl) 6.1 L Albumin (3.3 - 4.5 g/dl) 2.6 L Albumin/Globulin Ratio (0.7 - 2.0) 0.7 Hematology WBC (4.5 - 11.0 10^3/uL) 3.9 L RBC (3.50 - 5.40 10^6/uL) 3.34 L Hgb (12.0 - 16.0 g/dl) 13.0 Hct (36 - 48 %) 38.7 MCV (79 - 99 fL) 115.9 H MCH (25.0 - 34.0 pg) 38.9 H MCHC (31.0 - 36.0 g/dL) 33.6 RDW (11.0 - 15.0 %) 16.8 H Plt Count (130 - 400 10^3/uL) 201 MPV (7.0 - 11.0 fL) 8.1 Neutrophils (Manual) (50 - 65 %) 53 Neutrophils # (1.0 - 8.0 #) 2.1 Lymphocytes (Manual) (15 - 45 %) 36 Lymphocytes # (1.0 - 3.0 #) 1.4 Monocytes (Manual) (0 - 10 %) 9 Monocytes # (0.0 - 1.0 #) 0.4 Eosinophils (Manual) (0 - 5 %) 2 Eosinophils # (0.0 - 0.4 #) 0.1 Basophils # (0.0 - 0.2 #) 0.0 Macrocytosis 2+ Toxicology Serum Alcohol (0 mg/dl) 86 Cancelled Departure Departure Clinical Impression Primary Impression: Paresthesia of bilateral legs Secondary Impressions: Alcohol abuse, Vitamin B12 deficiency Time of Disposition 0027 Disposition HOME/SELF CARE Condition Satisfactory Tobacco Education Education Handout Given Patient Instructions Vitamin B12 Deficiency (ED) Referrals Jocelyne Gambino APRN (PCP) Additional Instructions follow up for further workup Mian Ruiz Jr, MD Electronically Signed 10/06/16 0029 Procedures Procedure Status Date Provider(s) EGD BIOPSY SINGLE/MULTIPLE Completed 09/29/16 Juan Hodge MD Encounters Encounter Location Arrival/Admit Date Discharge/Depart Date Attending Provider Departed [facility] 10/05/16 10:53pm 10/06/16 0:48am Mian Ruiz Jr, MD Departed [facility] 10/02/16 3:15pm 10/02/16 4:10pm Era (ED) Narendra ALBERT Registered Clinical [facility] 10/01/16 0:55am AMILCAR Gambino Departed Surgical Day Care [facility] 09/29/16 0:06am 09/29/16 9 :35am Juan Hodge MD Departed [facility] 09/24/16 10:36am 09/24/16 12:28pm Min (ED) Anna Meeks MD Departed [facility] 09/04/16 1:03pm 09/04/16 3:10pm Min (ED) Anna Meeks MD Departed [facility] 08/19/16 5:36pm 08/19/16 6:39pm Amrit Eugene MD Encounter Diagnosis Paresthesia of both lower extremities Alcohol abuse Cobalamin deficiency
[2016-10-16 16:38] VITALS: BP 137/80; PULSE 98; RESP 20; TEMP 98; O2SAT 96
[2016-10-16 16:39] VITALS: Ht 167.6 cm; Wt 78.1 kg
[2016-10-16] MEDS ORDERED: OMEP20CA10 PO (17:26)
[2016-10-16] MEDS ORDERED: ONDA4TAB10 PO (17:26)
[2016-10-16] MEDS ORDERED: SODI1TAB3 PO (17:28)
[2016-10-16] MEDS ORDERED: HYDR-4009 PO (17:38)
[2016-10-16] MEDS ORDERED: ACET-2321 PO (17:41)
[2016-10-16] MEDS ORDERED: FOLI1TAB15 PO (17:41)
[2016-10-16] MEDS ORDERED: PYRI25TA4 PO (17:44)
[2016-10-16] MEDS ORDERED: GABA-354 PO (17:49)
[2016-10-16] MEDS ORDERED: CYAN10009 PO (17:49)
[2016-10-16] MEDS ORDERED: THIA100T13 PO (17:49)
[2016-10-16] MEDS ORDERED: OMEP40CA52 PO (17:49)
[2016-10-16] MEDS ORDERED: FOLI-75 PO (17:49)
--- NOTE | 2016-10-16 18:41 | NUR ---
SHIFT SUMMARY A&O X3. VSS. RA. UP WITH 1-2 WITH WALKER AND GAITBELT. GOOD APPETITE. ON 1500ML FLUID RESTRICTION. BED ALARM IN USE. CONTINUES TO HAVE WEAKNESS, TINGLING, NUMBNESS IN LEGS.
--- NOTE | 2016-10-16 18:49 | HPPDOC ---
HPI - Adult Date DATE: 10/16/16 TIME: 18:15 General Chief Complaint: weakness, painful neuropathy History of Present Illness Heather is 56-year-old female with approximately 3 month history of progressive weakness in bilateral lower extremities and associated ascending painful paresthesias. Symptoms are far greater in her legs than her upper extremities but she does have numbness in the hands and minor weakness and has been dropping items intermittently. Weakness progressed to the point that the patient was essentially nonambulatory and fell multiple times. She was seen in the emergency room [place] 3 times and discharged home. Head CT was negative. Due to progression of symptoms she transferred to [facility] where she was admitted 10/08-10/16 and underwent extensive evaluation. There is report of low vitamin B-12 level prior to hospitalization although this is unconfirmed. B-12 supplementation was started prior to admission at [facility]. She was seen by neurology consultants, oncology, underwent lumbar puncture (protein slightly elevated at 71, 1 white cell), biopsy of 5 mm right upper lobe lung mass with resultant pneumothorax leading to chest tube placement, EMG/NCT on showed evidence of sensory neuropathy with no evidence of demyelination with some evidence of polyradiculopathy. MRI of the spine was limited by motion artifact but had no concerning lesions other than mild disc bulge at C3-4 and L4 -L5. No abnormal cord enhancement or signal reported. Laboratory data at [place] included B-12 of 498 (following initiation of supplementation), folic acid 2.5, B-6 3 (normal 5-50), thiamine 66 (normal 70- 180), vitamin A 29 (normal 32.5-78), low normal vitamin D level of 8.2. Heavy metal screen was obtained with slight elevation in lead at 5.5 mcg/dL with normal of 0-4.9. Paraneoplastic panel was negative; pathology on lung biopsy pending at discharge and patient is scheduled for follow-up with Dr. Stevie Rdz. additionally patient was advised to follow-up with neurology in the future. She transferred swing bed at [facility] for further strengthening. At present she describes weakness in her lower extremities which is far greater than upper extremity weakness. She has painful neuropathy in her legs and in the palms of her hands which she describes a sensation of hot pins and needles sticking overall over. This makes it particularly painful to walk. She doesn't think her strength is any better than it was prior to hospitalization but she is walking short distances using a walker. She occasionally drops items but for the most part has a fairly normal upper extremity strength. She reports occasional lightheadedness and dyspnea with activities but otherwise denies systemic symptoms. She does not believe neuropathic symptoms have improved with initiation of vitamin supplementations thus far. Transferring physician indicated the leading diagnosis at transfer was nutritional deficiencies Past Medical History Past Medical History 1. GERD 2. Hyponatremia 3. History of alcohol abuse 4. Ascending neuropathy of unclear etiology, possibly vitamin deficiencies 5. Vitamin B-12/B-6//thiamine/folic acid/vitamin A deficiencies 6. Right upper lobe nodule Surgical History Patient's Surgical History: 1. Left rotator cuff repair 2 2. Hysterectomy with bilateral salpingo-oophorectomy Current Medications Home Meds Reported Medications Gabapentin (Gabapentin) 400 Mg Capsule, 2 CAP PO TID, #90 CAP 2 Refills 10/16/16 Omeprazole (Omeprazole) 40 Mg Capsule.dr, 1 CAP PO DAILY, CAP 10/16/16 Multivitamin/Iron/Folic Acid (Centrum Complete Multivit Tab) 1 Each Tablet, 1 TAB PO DAILY 10/16/16 Cyanocobalamin (Vitamin B-12) (Vitamin B-12) 1,000 Mcg Tablet, 1 TAB PO DAILY, # 30 TAB 2 Refills 10/16/16 Thiamine (Thiamine HCl) 100 Mg Tablet, 100 MG PO DAILY, TAB 10/16/16 Pyridoxine HCl (Pyridoxine HCl) 25 Mg Tablet, 25 MG PO DAILY 10/16/16 Folic Acid (Folic Acid) 1 Mg Tablet, 1 TAB PO DAILY, TAB 10/16/16 Acetaminophen (Tylenol) 325 Mg Tablet, 2 TAB PO Q4HPRN, #30 TAB 10/16/16 Hydrocodone/Acetaminophen (Lortab 5-325 mg Tablet) 1 Each Tablet, 1-2 TAB PO Q6H Y for PAIN, TAB 10/16/16 Ondansetron (Ondansetron Odt) 4 Mg Tab.rapdis, 4 MG PO Q4HR Y for NAUSEA, TAB 10/16/16 Allergies: Coded Allergies: NKDA (Verified Allergy, Unknown, 10/16/16) Family History Family History: No history of diabetes or malignancy. Social History Smoking Status: Current some day smoker (smoking a few cigarettes daily prior to admission; no cigarettes since hospitalization) Substance Use Type: does not use Alcohol Intake: none (alcohol free for 1/2-2 years) Marital Status: Sexuality: male partner Household Members: spouse Advance Directives: Yes Full Code, No DPOA for Healthcare Only (has not formalized DPOA but indicated she would want her Chandra and sister-in- law Ana Foss Ricardo to make decisions for her if she is unable to do so) Social History Comments PCP-Jocelyne Gambino APRN in [facility] Review of Systems All Other Systems Comments Comprehensive review of systems completed with patient describing occasional dyspnea and dizziness with activities, no pleuritic pain, intermittent blurry vision, occasional palpitations, occasional tremors, and panic attacks prior to hospitalization due to inability to ambulate or manipulate stairs. She denies chronic anxiety/panic symptoms and has not continued to have symptoms on a recurring basis per her report although one event was described in her hospital transfer records. Remainder of review of systems is negative or as per history of present illness. Physical Exam General Vital Signs Vital Signs Date Time Temp Pulse Resp B/P Pulse Ox O2 Delivery O2 Flow Rate FiO2 10/16/16 16:38 98.0 98 20 137/80 96 Room Air EXAM: General-NAD, soft spoken, fluent speech HEENT-PERRL, EOMI without nystagmus, conjugate gaze, facial structures symmetric , oropharynx clear, neck supple and without adenopathy Lungs-respirations nonlabored, good airflow, no wheezing/rhonchi/crackles Cardiac-regular rhythm, S1-S2 Abd-soft, mildly distended but nontender, bowel sounds present Ext-without edema Skin-extensive bruising on the upper extremities from the elbows distally, no icterus or generalized rash Neuro-cranial nerves II through XII intact, sensation intact to light touch bilateral upper extremities above the wrists with decreased sensation in the palms but no paresthesias on palpation in the upper extremities. Palpation of the lower extremities triggers report of painful hot pins and needle sensation diffusely although my hands are cold which was not detected in the lower extremities. There is no drift the upper extremities, contact center representative are 4/5 bilaterally. Dorsiflexion/plantarflexion graded 4+/5 bilaterally, patient is able to spontaneously raise her right leg 8-10 inches off the bed and can hold it up against gentle resistance briefly, the left leg can be raised only 2-3 inches off the bed and generate some spasticity and attempting to do so. Left leg cannot be held up against any resistance. There is no tremor and motor tone is normal. Psych-calm, cooperative Height (Feet): 5 Height (Inches): 6.00 Neurologic RN Documented GCS Eye Opening: Verbal: Motor: Total: Laboratory Data from [facility] - On 10/16 white count 7.0, hemoglobin 10.2, MCV 114.1, platelet count 383,000 Sodium 132, creatinine 0.51, calcium 10.1 Earlier in the hospitalization sedimentation rate was 15, ammonia level 21, and albumin 2.9, hepatitis C antibody negative, HIV negative Urine porphyrins unremarkable and remainder of pertinent studies as outlined in history of present illness. 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 Nutritional replacement initiated in conjunction with gabapentin for neuropathic pain. Regular diet with fluid restriction for her chronic hyponatremia. Monitor electrolytes. Follow-up to be scheduled with [facility]. Repeat chest x-ray in a.m. due to reported small pneumothorax 10/15. Plan/Intensity of Service Extensive review of transfer records. Discussed with case management/nursing. Discussed with Dr. Sims prior to transfer. DVT Prophylaxis: SCD'S Code Status Hospital Course Summary Disclaimer The hospital course summary below is not to be considered part of the above Progress Note. Hospital Course Summary 10/16 Patient admitted to swing bed to continue strengthening/PT/OT. Nutritional replacement initiated in conjunction with gabapentin for neuropathic pain. Regular diet with fluid restriction for her chronic hyponatremia. Monitor electrolytes. Follow-up to be scheduled with [facility]. Repeat chest x-ray in a.m. due to reported small pneumothorax 10/15. ROLAND AGUILAR MD Oct 16, 2016 18:27
[2016-10-16] MEDS ORDERED: LORAZEPAM 2 MG/ML INJECTION IV PRN (19:00)
[2016-10-16] MEDS ORDERED: ONDANSETRON 4mg/2ml INJECTION IV PRN (19:00)
[2016-10-16] MEDS ORDERED: ONDANSETRON ODT 4 MG TAB PO PRN (19:00)
[2016-10-16 19:53] VITALS: PULSE 98; RESP 20; O2SAT 96
[2016-10-16] MEDS: GABAPENTIN 400 MG CAPSULE PO SCH (21:30)
--- NOTE | 2016-10-16 21:40 | NUR ---
STATUS ATTEMPTED TO WAKE UP THE PT BY SAYING HER NAME. PT DID NOT OPEN HER EYES OR MOVE. TOUCHED THE PT ON HER SHOULDER TO WAKE HER UP. PT DID NOT RESPOND. A WET, COOL WASHCLOTH WAS USED TO WIPE HER FACE OFF. PT DID WAKE UP AND SAID SHE NEEDED THE BATHROOM. SHE TOOK HER MEDICATION WITHOUT DIFFICULT. WHEN ASKED IF SHE COULD WALK TO THE BATHROOM SHE SAID "I DON'T KNOW IF I CAN". OFFER HER A BEDPAN, PT SAID YES FOR THE BEDPAN. SHE WAS ABLE TO VOID LARGE AMOUNT.
[2016-10-16 23:45] VITALS: BP 110/66; PULSE 108; RESP 16; TEMP 98.1; O2SAT 92
[2016-10-17 05:10] LABS: BASOPHILS % (AUTO) 0.5 % (0-2); EOSINOPHILS # (AUTO) 0.2 T/MM3 (0-0.5); EOSINOPHILS % (AUTO) 3.9 % (0-4); HCT - HEMATOCRIT 32.2 % (36-46); HGB - HEMOGLOBIN 10.6 GM/DL (12-16); IMMATURE GRANULOCYTE # (AUTO) 0.04 T/MM3 (0.00-0.03); IMMATURE GRANULOCYTE % (AUTO) 0.7 % (0.0-0.5); LYMPHOCYTES # (AUTO) 1.4 T/MM3 (1-4.8); LYMPHOCYTES % (AUTO) 23.3 % (23-45); MEAN CORPUSCULAR HGB 37.9 UUG (26-34); MEAN CORPUSCULAR HGB CONC(MCHC 32.9 GM/DL (31-37); MONOCYTES # (AUTO) 0.6 T/MM3 (0-0.8); MONOCYTES % (AUTO) 10.2 % (0-9.0); NEUTROPHILS #(AUTO)-ABSOLUTE 3.6 T/MM3 (1.8-7.7); NEUTROPHILS % (AUTO) 61.4 % (33-66); WBC - WHITE BLOOD COUNT 5.9 T/MM3 (4.5-11.0)
[2016-10-17 05:18] LABS: ANION GAP 7 MEQ/L (5-15); BUN/CREATININE RATIO 12 RATIO (6-26); CALCIUM 10.1 MG/DL (8.4-10.2); CHLORIDE 103 MEQ/L (98-107); CO2 - CARBON DIOXIDE 26 MEQ/L (22-30); CREATININE 0.6 MG/DL (0.7-1.2); GLOMERULAR FILTRATION RATE 104; GLUCOSE 96 MG/DL (65-110); MAGNESIUM 2.4 MG/DL (1.6-2.3); POTASSIUM 4.8 MEQ/L (3.6-5); SODIUM 136 MEQ/L (134-144)
--- NOTE | 2016-10-17 07:50 | NUR ---
STATUS PT WAS UP TO THE BATHROOM X 2, WITH 2 ASSIST, FWW AND GAIT BELT. NOTED PT'S GAIT IS UNSTEADY, PT LOCKS HER KNEES TO MOVE. DENIES NEED FOR PRN PAIN MEDICATIONS.
[2016-10-17 07:55] VITALS: BP 122/69; PULSE 104; RESP 18; TEMP 97.9; O2SAT 92
[2016-10-17 08:00] VITALS: PULSE 104; RESP 18
[2016-10-17] MEDS: GABAPENTIN 400 MG CAPSULE PO SCH ×3 (09:04→21:08)
[2016-10-17] MEDS: PYRIDOXINE 100 MG TABLET PO SCH (09:04)
[2016-10-17] MEDS: CYANOCOBALAMIN (B-12) 500mcg TABLET PO SCH (09:04)
[2016-10-17] MEDS: MULTIVITAMIN + MINERAL TABLET PO SCH (09:04)
[2016-10-17] MEDS: FOLIC ACID 1 MG TABLET PO SCH (09:04)
[2016-10-17] MEDS: THIAMINE 100 MG TABLET PO SCH (09:04)
[2016-10-17] MEDS: OMEPRAZOLE 20 MG CAPSULE PO SCH (09:04)
--- NOTE | 2016-10-17 10:20 | PNPDOC ---
Subjective Date DATE: 10/17/16 TIME: 10:18 Subjective Patient without new complaints. No evidence overnight. States the only thing she wishes for now is to be allowed to drink more fluids. Objective Vital Signs Vital signs Vital Signs Date Time Temp Pulse Resp B/P Pulse Ox O2 Delivery O2 Flow Rate FiO2 10/17/16 08:00 104 18 10/17/16 07:55 97.9 122/69 92 Room Air Height (Feet): 5 Height (Inches): 6.00 Weight (Kilograms): 72.400 General Comments General-NAD, soft spoken, fluent speech HEENT-PERRL, EOMI without nystagmus, conjugate gaze, facial structures symmetric , oropharynx clear, neck supple and without adenopathy Lungs-respirations nonlabored, good airflow, no wheezing/rhonchi/crackles Cardiac-regular rhythm, S1-S2 Abd-soft, mildly distended but nontender, bowel sounds present Ext-without edema Skin-extensive bruising on the upper extremities from the elbows distally, no icterus or generalized rash Neuro-cranial nerves II through XII intact, sensation intact to light touch bilateral upper extremities above the wrists with decreased sensation in the palms but no paresthesias on palpation in the upper extremities. Palpation of the lower extremities triggers report of painful hot pins and needle sensation diffusely although my hands are cold which was not detected in the lower extremities. There is no drift the upper extremities, roofer applicator are 4/5 bilaterally. Dorsiflexion/plantarflexion graded 4+/5 bilaterally, patient is able to spontaneously raise her right leg 8-10 inches off the bed and can hold it up against gentle resistance briefly, the left leg can be raised only 2-3 inches off the bed and generate some spasticity and attempting to do so. Left leg cannot be held up against any resistance. There is no tremor and motor tone is normal. Psych-calm, cooperative Laboratory Laboratory Laboratory Tests 10/17/16 04:17 Laboratory Tests 10/17/16 04:17 Assessment & Plan Problems: (1) Weakness Status: Acute Assessment & Plan: Continue physical therapy. 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 Continue fluid restriction. Assessment Patient admitted to swing bed to continue strengthening/PT/OT. Nutritional replacement initiated in conjunction with gabapentin for neuropathic pain. Regular diet with fluid restriction for her chronic hyponatremia. Monitor electrolytes. Follow-up to be scheduled with [facility]. Repeat chest x-ray in a.m. due to reported small pneumothorax 10/15. Plan/Intensity of Service Extensive review of transfer records. Discussed with case management/nursing. Discussed with Dr. Sims prior to transfer. Code Status Full Code Hospital Course Summary Disclaimer The hospital course summary below is not to be considered part of the above Progress Note. Hospital Course Summary 10/16 Patient admitted to swing bed to continue strengthening/PT/OT. Nutritional replacement initiated in conjunction with gabapentin for neuropathic pain. Regular diet with fluid restriction for her chronic hyponatremia. Monitor electrolytes. Follow-up to be scheduled with [facility]. Repeat chest x-ray in a.m. due to reported small pneumothorax 10/15. ANDRA ANDRE MD Oct 17, 2016 10:20
[2016-10-17] MEDS: HYDROCODONE/APAP 5 mg/325 mg TABLET PO PRN ×2 (13:49→19:49)
[2016-10-17 15:22] VITALS: BP 123/78; PULSE 111; RESP 18; TEMP 98.6; O2SAT 97
--- NOTE | 2016-10-17 17:50 | NUR ---
SHIFT PT HAS BEEN PLEASANT AND COOPERATIVE ALL SHIFT. PT IS A&OX3, UP WITH TWO ASSIST, GAIT BELT AND WALKER. PT IS VERY UNSTEADY. PT HAS BEEN UP TO RECLINER FOR MEALS AND EATS 100%. PT REPORTS PAIN IN BACK AND KNEES. PRN NORCOS GIVEN. FAMILY HAS BEEN AT BEDSIDE FOR VISIT. PT DENIES N/V AND SOA. PT IS ON ROOM AIR. PT HAS AMBULATED IN ROOM BUT UNABLE TO TOLERATE THE HARRELL WAY DISTANCES. NO OTHER CHANGES SINCE PREVIOUS SHIFT. ALARMS IN USE AND CALL LIGHT WITH IN REACH.
[2016-10-18] VITALS: BP 112/73; PULSE 102; RESP 16; TEMP 98; O2SAT 90
[2016-10-18] MEDS: ACETAMINOPHEN 325 MG TABLET PO PRN (02:50)
--- NOTE | 2016-10-18 02:55 | NUR ---
Pt c/o a very bad headache. Requests just tylenol. Tylenol given.
[2016-10-18 07:50] VITALS: BP 124/71; PULSE 89; RESP 16; TEMP 98.2; O2SAT 97
[2016-10-18 08:00] VITALS: PULSE 89; RESP 16
[2016-10-18] MEDS: FOLIC ACID 1 MG TABLET PO SCH (08:56)
[2016-10-18] MEDS: GABAPENTIN 400 MG CAPSULE PO SCH ×3 (08:56→20:06)
[2016-10-18] MEDS: MULTIVITAMIN + MINERAL TABLET PO SCH (08:56)
[2016-10-18] MEDS: OMEPRAZOLE 20 MG CAPSULE PO SCH (08:56)
[2016-10-18] MEDS: PYRIDOXINE 100 MG TABLET PO SCH (08:57)
[2016-10-18] MEDS: CYANOCOBALAMIN (B-12) 500mcg TABLET PO SCH (08:57)
[2016-10-18] MEDS: THIAMINE 100 MG TABLET PO SCH (08:57)
--- NOTE | 2016-10-18 09:10 | PNPDOC ---
Subjective Date DATE: 10/18/16 TIME: 09:05 Subjective No new complaints. Still complains of numbness and tingling in her hands and feet. No evidence overnight. Objective Vital Signs Vital signs Vital Signs Date Time Temp Pulse Resp B/P Pulse Ox O2 Delivery O2 Flow Rate FiO2 10/18/16 08:00 89 16 10/18/16 07:50 98.2 124/71 97 Room Air Height (Feet): 5 Height (Inches): 6.00 Weight (Kilograms): 73.000 General Comments Gen.-AAO 3; NAD CV-RRR Lungs-CTAB Abdomen-benign Extremities-no E/C/C Laboratory Laboratory Laboratory Tests 10/17/16 04:17 Laboratory Tests 10/17/16 04:17 Assessment & Plan Problems: (1) Weakness Status: Acute Assessment & Plan: Continue physical therapy. 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 (6) Folic acid deficiency Status: Acute Assessment & Plan: Will change to intravenous injections while in the hospital. (7) Vitamin B6 deficiency Status: Acute (8) Thiamine deficiency Status: Acute Assessment & Plan: Will change to intravenous injections while in the hospital. (9) Hyponatremia Status: Chronic Assessment & Plan: Improved. Continue fluid restriction. Assessment Patient admitted to swing bed to continue strengthening/PT/OT. Nutritional replacement initiated in conjunction with gabapentin for neuropathic pain. Regular diet with fluid restriction for her chronic hyponatremia. Monitor electrolytes. Follow-up to be scheduled with [facility] neurology. Repeat chest x-ray in a.m. due to reported small pneumothorax 10/15. Plan/Intensity of Service Extensive review of transfer records. Discussed with case management/nursing. Discussed with Dr. Sims prior to transfer. Code Status Full Code Hospital Course Summary Disclaimer The hospital course summary below is not to be considered part of the above Progress Note. Hospital Course Summary 10/16 Patient admitted to swing bed to continue strengthening/PT/OT. Nutritional replacement initiated in conjunction with gabapentin for neuropathic pain. Regular diet with fluid restriction for her chronic hyponatremia. Monitor electrolytes. Follow-up to be scheduled with [facility] neurology. Repeat chest x-ray in a.m. due to reported small pneumothorax 10/15. ANDRA ANDRE MD Oct 18, 2016 09:08
--- NOTE | 2016-10-18 14:08 | DI ---
INDICATION: ITS.REASON: pulmonary mass, postbiopsy pneumothorax PROCEDURE: CHEST 2-VIEWS UPRIGHT (PA \T\ LAT) Encounter: Initial COMPARISON: None FINDINGS: The reported pulmonary mass is not apparent to me on this exam. No consolidation seen. There is no pleural effusion or pneumothorax. The heart size, mediastinal contours and pulmonary vascularity are within normal limits. There is no significant skeletal abnormality. IMPRESSION: No visible pneumothorax. .
[2016-10-18 15:38] VITALS: BP 121/81; PULSE 95; RESP 12; TEMP 98.4; O2SAT 95
--- NOTE | 2016-10-18 17:49 | NUR ---
SHIFT PT HAS BEEN PLEASANT AND COOPERATIVE ALL SHIFT. PT IS A&OX3, UP WITH ON TO TWO ASSIST, GAIT BELT AND WALKER. PT DENIES PAIN, N/V AND SOA AT THIS TIME. PT IS ON ROOM AIR. PT HAS AMBULATED IN ROOM WITH STAFF AND HAS BEEN UP TO RECLINER MOST OF SHIFT. PT EATS 100% OF MEALS AND HAS ADEQUATE OUTPUT. NO OTHER CHANGES SINCE PREVIOUS SHIFT. ALARMS IN USE AND CALL LIGHT WITH IN REACH. Addendum: 10/18/16 at 1751 by JESÚS WELCH RN UP WITH ONE TO TWO, NOT ON TO TWO.
[2016-10-18] MEDS: HYDROCODONE/APAP 5 mg/325 mg TABLET PO PRN (18:10)
--- NOTE | 2016-10-18 18:19 | NUR ---
pain PT REPORTS SOME PAIN 2/10 IN BACK, PRN NORCO GIVEN.
[2016-10-18 20:09] VITALS: BP 123/85; PULSE 93; RESP 18; TEMP 97.9; O2SAT 92
[2016-10-19 00:17] VITALS: BP 117/76; PULSE 91; RESP 20; TEMP 96.5; O2SAT 91
--- NOTE | 2016-10-19 05:48 | NUR ---
SUMMARY PT SLEEPING AT THE MOMENT. CALL LIGHT WITHIN REACH. PT IS ALERT AND ORIENTED. WAS ASSISTED X 2 PERSON TO THE BATHROOM THIS SHIFT. GAIT UNSTEADY. ASSIST WITH GAIT BELT AND WALKER. PT REFUSED TO WEAR SCDS FROM HS TO 0400 THIS MORNING. SHE SAID SHE CANT SLEEP WITH THEM ON. EDUCATED ABT THE NEED OF USING THE SCDS. PT COMPLIANT WITH THE FLUID RESTRICTION.
[2016-10-19 07:44] VITALS: BP 110/77; PULSE 99; RESP 20; TEMP 97.5; O2SAT 95
[2016-10-19] MEDS: FOLIC ACID 1 MG TABLET PO SCH (08:14)
[2016-10-19] MEDS: MULTIVITAMIN + MINERAL TABLET PO SCH (08:15)
[2016-10-19] MEDS: OMEPRAZOLE 20 MG CAPSULE PO SCH (08:15)
[2016-10-19] MEDS: GABAPENTIN 400 MG CAPSULE PO SCH ×3 (08:15→21:05)
[2016-10-19] MEDS: CYANOCOBALAMIN (B-12) 1000mcg/ml INJECTION IM SCH (08:17)
[2016-10-19] MEDS: PYRIDOXINE 100 MG/ML IV SCH (08:37)
[2016-10-19] MEDS: THIAMINE 200mg/2ml INJECTION IV SCH (08:37)
--- NOTE | 2016-10-19 09:44 | PNPDOC ---
Subjective Date DATE: 10/19/16 TIME: 09:39 Subjective Patient without complaints. She is hoping to be allowed to increase the amount of fluid she can drink. No events overnight. Case discussed with at bedside. Objective Vital Signs Vital signs Vital Signs Date Time Temp Pulse Resp B/P Pulse Ox O2 Delivery O2 Flow Rate FiO2 10/19/16 07:44 97.5 99 20 110/77 95 Room Air Height (Feet): 5 Height (Inches): 6.00 Weight (Kilograms): 73.600 General Comments General - AAO 3; NAD CV - RRR Lungs - CTAB Abdomen - benign Extremities - no E/C/C Assessment & Plan Problems: (1) Weakness Status: Acute Assessment & Plan: Continue physical therapy. 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 (6) Folic acid deficiency Status: Acute Assessment & Plan: Will change to intravenous injections while in the hospital. (7) Vitamin B6 deficiency Status: Acute (8) Thiamine deficiency Status: Acute Assessment & Plan: Will change to intravenous injections while in the hospital. (9) Hyponatremia Status: Chronic Assessment & Plan: Improved. Continue fluid restriction. Assessment Patient admitted to swing bed to continue strengthening/PT/OT. Nutritional replacement initiated in conjunction with gabapentin for neuropathic pain. Regular diet with fluid restriction for her chronic hyponatremia. Monitor electrolytes. Follow-up to be scheduled with [facility] neurology. Repeat chest x-ray in a.m. due to reported small pneumothorax 10/15. Plan/Intensity of Service Extensive review of transfer records. Discussed with case management/nursing. Discussed with Dr. Sims prior to transfer. Code Status Full Code Hospital Course Summary Disclaimer The hospital course summary below is not to be considered part of the above Progress Note. Hospital Course Summary 10/16 Patient admitted to swing bed to continue strengthening/PT/OT. Nutritional replacement initiated in conjunction with gabapentin for neuropathic pain. Regular diet with fluid restriction for her chronic hyponatremia. Monitor electrolytes. Follow-up to be scheduled with [facility] neurology. Repeat chest x-ray in a.m. due to reported small pneumothorax 10/15. ANDRA ANDRE MD October 19, 2016 09:44
[2016-10-19] MEDS: HYDROCODONE/APAP 5 mg/325 mg TABLET PO PRN ×2 (10:26→18:47)
[2016-10-19 14:23] VITALS: BP 103/66; PULSE 97; RESP 20; TEMP 97.8; O2SAT 94
--- NOTE | 2016-10-19 18:11 | NUR ---
CM SPOKE WITH PT, AND WAS PRESENT WITH PT'S PERMISSION. DISCUSSED DC PLANNING. PT'S DC PLAN IS TO RETURN TO [place] WITH HER . THIS WORKER EXPLAINED WE CAN RE-ASSESS AT THE END OF THE WEEK TO SEE HOW SHE IS DOING; IF SHE COULD POSSIBLY RETURN HOME THEN OR IF SHE WILL NEED FURTHER CARE. BOTH WERE AGREEABLE TO THIS. REVIEWED SWING BED PAPERWORK; REVIEWED RIGHTS, REVIEWED POC, PT HAD NO QUESTIONS/CONCERNS ABOUT THESE. OFFERED ACTIVITIES; PT STATED SHE DOES NOT NEED ANY AND THAT HER EYESIGHT LIMITS HER READING, GAMES, WATCHING TV, ETC. THIS WORKER ENCOURAGED HER TO CALL IF THERE ARE ANY ACTIVITIES THAT SHE CAN THINK OF, AND SHE SAID OK.
--- NOTE | 2016-10-19 19:27 | NUR ---
SHIFT SUMMARY PT ALERT AND ORIENTED X3. PT ON RA, DENIES SOA. PT RATES PAIN 7/10, PRN NORCO ADMINISTERED AND PT REPORTS DECREASED PAIN. UP WITH ASSIST X1-2, GAIT BELT, WALKER, PT UNSTEADY ON FEET. PT DENIES LIGHTHEADEDNESS, STATES 'MY LEGS ARE JUST REALLY WEAK.' ADEQUATE URINE OUTPUT, BM THIS SHIFT. UP IN RECLINER FOR MEALS. PT ABLE TO MAKE NEEDS KNOWN. BED ALARM ON, CALL LIGHT WITHIN REACH.
[2016-10-19 19:44] VITALS: BP 111/65; PULSE 103; RESP 14; TEMP 98.2; O2SAT 95
[2016-10-19 20:00] VITALS: RESP 16
[2016-10-19 23:04] VITALS: BP 144/82; PULSE 96; RESP 14; TEMP 97.9; O2SAT 94
[2016-10-20 03:23] VITALS: BP 124/79; PULSE 98; RESP 14; TEMP 98; O2SAT 93
--- NOTE | 2016-10-20 05:23 | NUR ---
SHIFT SUMMARY: PT IS A&OX3, FRIENDLY AND COOPERATIVE; ON RA; DENIES SOA OR CHEST PAIN; IV LOCKED; UNSTEADY ON HER FEET AND WEARS PINK/BLACK TENNIS SHOES WHEN AMBULATING, UP TO BATHROOM WITH WALKER, GATE BELT, AN 2 ASSISTS; BED ALARM ON, CALL LIGHT WITHIN REACH.
[2016-10-20 07:24] VITALS: BP 106/75; PULSE 97; RESP 18; TEMP 98.3; O2SAT 98
[2016-10-20] MEDS: OMEPRAZOLE 20 MG CAPSULE PO SCH (08:27)
[2016-10-20] MEDS: MULTIVITAMIN + MINERAL TABLET PO SCH (08:28)
[2016-10-20] MEDS: FOLIC ACID 1 MG TABLET PO SCH (08:28)
[2016-10-20] MEDS: CYANOCOBALAMIN (B-12) 1000mcg/ml INJECTION IM SCH (08:28)
[2016-10-20] MEDS: GABAPENTIN 400 MG CAPSULE PO SCH ×3 (08:28→19:36)
[2016-10-20] MEDS: PYRIDOXINE 100 MG/ML IV SCH (08:29)
[2016-10-20] MEDS: THIAMINE 200mg/2ml INJECTION IV SCH (08:29)
[2016-10-20 08:30] VITALS: RESP 18
--- NOTE | 2016-10-20 09:00 | PNPDOC ---
Subjective Date DATE: 10/20/16 TIME: 08:59 Subjective Patient without complaints. States the pain in her feet is unchanged. Is able to walk 120 feet with a walker and physical therapy however the initiation of the walking is the most troublesome part. Family relates that they have 3 steps to climb up at home and are fearful of her falling again. Case discussed with family at bedside. Objective Vital Signs Vital signs Vital Signs Date Time Temp Pulse Resp B/P Pulse Ox O2 Delivery O2 Flow Rate FiO2 10/20/16 07:24 98.3 97 18 106/75 98 Room Air Height (Feet): 5 Height (Inches): 6.00 Weight (Kilograms): 73.600 General Comments General - AAO 3; NAD CV - RRR Lungs - CTAB Abdomen - benign Extremities - no E/C/C Neuro--parasthesia both feet Assessment & Plan Problems: (1) Weakness Status: Acute Assessment & Plan: Improving. Secondary to multiple nutritional deficiencies. Continue physical therapy. 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 (6) Folic acid deficiency Status: Acute Assessment & Plan: Will change to intravenous injections while in the hospital. (7) Vitamin B6 deficiency Status: Acute (8) Thiamine deficiency Status: Acute Assessment & Plan: Will change to intravenous injections while in the hospital. (9) Hyponatremia Status: Chronic Assessment & Plan: Improved. Repeat labs in a.m. Assessment Patient admitted to swing bed to continue strengthening/PT/OT. Nutritional replacement initiated in conjunction with gabapentin for neuropathic pain. Regular diet with fluid restriction for her chronic hyponatremia. Monitor electrolytes. Follow-up to be scheduled with [facility] neurology. Repeat chest x-ray in a.m. due to reported small pneumothorax 10/15. Plan/Intensity of Service Extensive review of transfer records. Discussed with case management/nursing. Discussed with Dr. Sims prior to transfer. Code Status Full Code Hospital Course Summary Disclaimer The hospital course summary below is not to be considered part of the above Progress Note. Hospital Course Summary 10/16 Patient admitted to swing bed to continue strengthening/PT/OT. Nutritional replacement initiated in conjunction with gabapentin for neuropathic pain. Regular diet with fluid restriction for her chronic hyponatremia. Monitor electrolytes. Follow-up to be scheduled with [facility] neurology. Repeat chest x-ray in a.m. due to reported small pneumothorax 10/15. ANDRA ANDRE MD October 20, 2016 09:00
[2016-10-20] MEDS: HYDROCODONE/APAP 5 mg/325 mg TABLET PO PRN ×2 (10:06→19:36)
[2016-10-20 14:36] VITALS: BP 120/78; PULSE 94; RESP 16; TEMP 97.6; O2SAT 99
[2016-10-20] MEDS: ACETAMINOPHEN 325 MG TABLET PO PRN (14:38)
--- NOTE | 2016-10-20 19:02 | NUR ---
SHIFT SUMMARY PT ALERT AND ORIENTED X3. PT ON RA, DENIES SOA. RATES PAIN 4/10, PRN PAIN MEDS ADMINISTERED. PT DENIES N/V. UP WITH ASSIST X1, GAIT BELT, WALKER. PT AMBULATED IN HALLWAY X2 THIS SHIFT, TOLERATED WELL. IVL LEFT FOREARM PATENT. ADEQUATE URINE OUTPUT, BM THIS SHIFT. PT ABLE TO MAKE NEEDS KNOWN. BED ALARM ON, CALL LIGHT WITHIN REACH.
[2016-10-20 20:00] VITALS: BP 128/66; PULSE 100; PULSE 94; RESP 16; TEMP 97.8
[2016-10-20 23:45] VITALS: BP 121/68; PULSE 104; RESP 16; TEMP 98.2; O2SAT 93
[2016-10-21 05:20] LABS: HCT - HEMATOCRIT 34.1 % (36-46); MEAN CORPUSCULAR HGB 36.8 UUG (26-34); MEAN CORPUSCULAR HGB CONC(MCHC 32.3 GM/DL (31-37); MEAN PLATELET VOLUME 10.2 UM3 (9.4-12.4); RED BLOOD COUNT 2.99 M/MM3 (4.00-5.20); WBC - WHITE BLOOD COUNT 4.8 T/MM3 (4.5-11.0)
[2016-10-21 05:26] LABS: ANION GAP 7 MEQ/L (5-15); BUN/CREATININE RATIO 18 RATIO (6-26); CALCIUM 9.8 MG/DL (8.4-10.2); CHLORIDE 101 MEQ/L (98-107); CO2 - CARBON DIOXIDE 31 MEQ/L (22-30); CREATININE 0.5 MG/DL (0.7-1.2); GLOMERULAR FILTRATION RATE 128; GLUCOSE 86 MG/DL (65-110); MAGNESIUM 2.3 MG/DL (1.6-2.3); POTASSIUM 4.5 MEQ/L (3.6-5); SODIUM 139 MEQ/L (134-144)
[2016-10-21 07:02] LABS: ANISOCYTOSIS 1+; EOSINOPHILS # (MANUAL) 0.2 T/MM3 (0-0.5); LYMPHOCYTES # (MANUAL) 1.3 T/MM3 (1-4.8); MONOCYTES # (MANUAL) 0.8 T/MM3 (0-0.8); NEUTROPHILS #(MANUAL)-ABSOLUTE 2.4 T/MM3 (1.8-7.7); POIKILOCYTOSIS 1+; TOTAL CELLS COUNTED 100 %
[2016-10-21 07:03] LABS: STOMATOCYTES 1+
[2016-10-21 07:29] VITALS: BP 121/81; PULSE 96; RESP 16; TEMP 98; O2SAT 97
[2016-10-21] MEDS: HYDROCODONE/APAP 5 mg/325 mg TABLET PO PRN ×3 (07:33→20:33)
--- NOTE | 2016-10-21 07:43 | NUR ---
STATUS PT IS ALERT AND ORIENTED X 3. UP TO BR WITH 1 ASSIST, GAIT BELT AND FWW. CALL WHEN SHE NEEDS TO USE THE BR. PT STATES SHE WAS ABLE TO SLEEP WELL. DENIES PAIN, SOA ON RA, OR CHEST DISCOMFORT. IVL IN LEFT FOREARM FLUSH WITHOUT DIFFICULT. UP IN THE RECLINER EARLY LOOKING FORWARD TO REVIEW HER LABS.
--- NOTE | 2016-10-21 08:24 | PNPDOC ---
Subjective Date DATE: 10/21/16 TIME: 08:16 Subjective Patient without complaints. States that her paresthesias are a little better. States that she slept like a baby last night. Eating better than she has in over a month. Ambulating better with a walker. Objective Vital Signs Vital signs Vital Signs Date Time Temp Pulse Resp B/P Pulse Ox O2 Delivery O2 Flow Rate FiO2 10/21/16 07:29 98.0 96 16 121/81 97 Room Air 10/20/16 20:00 3.00 Height (Feet): 5 Height (Inches): 6.00 Weight (Kilograms): 75.500 BMI General - AAO 3; NAD CV - RRR Lungs - CTAB Abdomen - benign Extremities - no E/C/C Neuro--parasthesia both feet Laboratory Laboratory Laboratory Tests 10/21/16 04:20 Laboratory Tests 10/21/16 04:20 Assessment & Plan Problems: (1) Weakness Status: Acute Assessment & Plan: Improving. Secondary to multiple nutritional deficiencies. Continue physical therapy. 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 (6) Folic acid deficiency Status: Acute Assessment & Plan: Will change to intravenous injections while in the hospital. (7) Vitamin B6 deficiency Status: Acute (8) Thiamine deficiency Status: Acute Assessment & Plan: Will change to intravenous injections while in the hospital. (9) Hyponatremia Status: Resolved Assessment Patient admitted to swing bed to continue strengthening/PT/OT. Nutritional replacement initiated in conjunction with gabapentin for neuropathic pain. Regular diet with fluid restriction for her chronic hyponatremia. Monitor electrolytes. Follow-up to be scheduled with [facility] neurology. Repeat chest x-ray in a.m. due to reported small pneumothorax 10/15. Plan/Intensity of Service Extensive review of transfer records. Discussed with case management/nursing. Discussed with Dr. Sims prior to transfer. Code Status Full Code Hospital Course Summary Disclaimer The hospital course summary below is not to be considered part of the above Progress Note. Hospital Course Summary 10/16 Patient admitted to swing bed to continue strengthening/PT/OT. Nutritional replacement initiated in conjunction with gabapentin for neuropathic pain. Regular diet with fluid restriction for her chronic hyponatremia. Monitor electrolytes. Follow-up to be scheduled with [facility] neurology. Repeat chest x-ray in a.m. due to reported small pneumothorax 10/15. ANDRA ANDRE MD October 21, 2016 08:24
[2016-10-21] MEDS: PYRIDOXINE 100 MG/ML IV SCH (08:33)
[2016-10-21] MEDS: CYANOCOBALAMIN (B-12) 1000mcg/ml INJECTION IM SCH (08:33)
[2016-10-21] MEDS: THIAMINE 200mg/2ml INJECTION IV SCH (08:33)
[2016-10-21] MEDS: GABAPENTIN 400 MG CAPSULE PO SCH ×3 (08:34→20:33)
[2016-10-21] MEDS: OMEPRAZOLE 20 MG CAPSULE PO SCH (08:34)
[2016-10-21] MEDS: MULTIVITAMIN + MINERAL TABLET PO SCH (08:34)
[2016-10-21] MEDS: FOLIC ACID 5 MG/ML INJECTION IV SCH (08:41)
[2016-10-21 15:21] VITALS: BP 95/67; PULSE 108; RESP 16; TEMP 97.7; O2SAT 95
--- NOTE | 2016-10-21 18:55 | NUR ---
status Pt A/O x3, V/S stable on RA. Pt ambulating with 1x assist and walker, up in halls. Urine output good for shift, no BM. Pain rated at 7-9/10, PRN norco given 2xs, pt stated relief after having. Eating and drinking well, no N/V. Up to chair most of the day.
[2016-10-21 20:00] VITALS: PULSE 108; RESP 16
[2016-10-22] VITALS: BP 112/71; PULSE 99; RESP 15; TEMP 98.1; O2SAT 92
--- NOTE | 2016-10-22 04:29 | NUR ---
SHIFT SUMMARY PT A/O X 3. UP WITH SBA, FWW, AND GAIT BELT. PT TOLERATES WALKING TO BATHROOM. GAIT CONTINUES TO BE UNSTEADY AT TIMES. PT IS ABLE TO BALANCE HER SELF SHE WALKS. WHEN OFFER TO WALK IN THE HARRELL PT REFUSED. STATES FEELING TRIED AND WOULD LIKE TO RELAX. PT SAT UP IN RECLINER FOR UNTIL 2100. UP AT 0400 ASKING FOR COFFEE AND TO SIT IN THE RECLINER. DENIES PAIN OR SOA. CALL LIGHT WITHIN REACH. CHAIR ALARM ON.
[2016-10-22 08:00] VITALS: BP 126/69; PULSE 97; RESP 16; TEMP 97.9; O2SAT 98
[2016-10-22] MEDS: OMEPRAZOLE 20 MG CAPSULE PO SCH (08:01)
[2016-10-22] MEDS: ACETAMINOPHEN 325 MG TABLET PO PRN (08:01)
[2016-10-22] MEDS: GABAPENTIN 400 MG CAPSULE PO SCH ×3 (08:01→19:37)
[2016-10-22] MEDS: MULTIVITAMIN + MINERAL TABLET PO SCH (08:01)
[2016-10-22] MEDS: FOLIC ACID 5 MG/ML INJECTION IV SCH (08:02)
[2016-10-22] MEDS: CYANOCOBALAMIN (B-12) 1000mcg/ml INJECTION IM SCH (08:02)
[2016-10-22] MEDS: PYRIDOXINE 100 MG/ML IV SCH (08:02)
[2016-10-22] MEDS: THIAMINE 200mg/2ml INJECTION IV SCH (08:03)
--- NOTE | 2016-10-22 11:18 | PNPDOC ---
Subjective Date DATE: 10/22/16 TIME: 11:14 Subjective States the numbness and tingling in her hands are gone. Only in her feet now. No other complaints. Objective Vital Signs Vital signs Vital Signs Date Time Temp Pulse Resp B/P Pulse Ox O2 Delivery O2 Flow Rate FiO2 10/22/16 08:00 16 10/22/16 08:00 97.9 97 126/69 98 Room Air 10/20/16 20:00 3.00 Height (Feet): 5 Height (Inches): 6.00 Weight (Kilograms): 76.000 General Comments General - AAO 3; NAD CV - RRR Lungs - CTAB Abdomen - benign Extremities -no e/c/c Neuro--nonfocal Laboratory Laboratory Laboratory Tests 10/21/16 04:20 Laboratory Tests 10/21/16 04:20 Assessment & Plan Problems: (1) Weakness Status: Acute Assessment & Plan: Improving. Secondary to multiple nutritional deficiencies. Continue physical therapy. 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 (6) Folic acid deficiency Status: Acute Assessment & Plan: Will change to intravenous injections while in the hospital. (7) Vitamin B6 deficiency Status: Acute (8) Thiamine deficiency Status: Acute Assessment & Plan: Will change to intravenous injections while in the hospital. (9) Hyponatremia Status: Resolved Assessment Patient admitted to swing bed to continue strengthening/PT/OT. Nutritional replacement initiated in conjunction with gabapentin for neuropathic pain. Regular diet with fluid restriction for her chronic hyponatremia. Monitor electrolytes. Follow-up to be scheduled with [facility] neurology. Repeat chest x-ray in a.m. due to reported small pneumothorax 10/15. Plan/Intensity of Service Extensive review of transfer records. Discussed with case management/nursing. Discussed with Dr. Sims prior to transfer. Code Status Full Code Hospital Course Summary Disclaimer The hospital course summary below is not to be considered part of the above Progress Note. Hospital Course Summary 10/16 Patient admitted to swing bed to continue strengthening/PT/OT. Nutritional replacement initiated in conjunction with gabapentin for neuropathic pain. Regular diet with fluid restriction for her chronic hyponatremia. Monitor electrolytes. Follow-up to be scheduled with [facility] neurology. Repeat chest x-ray in a.m. due to reported small pneumothorax 10/15. ANDRA ANDRE MD October 22, 2016 11:18
--- NOTE | 2016-10-22 12:23 | NUR ---
CM SPOKE WITH PT. DISCUSSED DC PLANNING, DISCUSSED PT'S PROGRESS AND THE POSSIBILITY OF TRANSFERRING TO A RETAIL SALES DIRECTOR FACILITY IN THE EVENT THAT PT IS NOT ABLE TO RETURN HOME YET. PT'S GOAL IS STILL TO RETURN HOME WITH HER [place]. THIS IS THE GOAL STILL. PT STATED SHE HAS A 2 WHEELED WALKER, AND SHE CAN GET A SHOWER CHAIR THROUGH THE [facility]. 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 DISCUSSED HOME HEALTH; SHE REQUESTED [facility], BUT SHE ALSO GAVE PERMISSION FOR THIS WORKER TO FOLLOW UP WITH ADDITIONAL HOME HEALTH AGENCIES IF NEEDED. THIS WORKER CALLED [facility], SPOKE WITH YADIEL; SHE WILL LEAVE A MESSAGE FOR THE [employer] TECHNICIAN.
--- NOTE | 2016-10-22 12:30 | NUR ---
CM CALL FROM [facility] WITH [facility]; THEY DO NOT DO PRIVATE PAY/MADDEN PAY. SHE SUGGESTED [facility] ([phone]). THIS WORKER LEFT MESSAGE WITH [facility].
[2016-10-22 15:43] VITALS: BP 121/68; PULSE 109; TEMP 98; O2SAT 95
--- NOTE | 2016-10-22 18:49 | NUR ---
SHIFT SUMMARY PT WALKED TWICE TODAY WITH PHYSICAL THERAPY AND OT. IT WAS REPORTED PT HAD ISSUES WITH HER L KNEE LOCKING ON HER. THUS AN GABRIELLA WRAP WAS PLACED AROUND PTS L KNEE. DR JACKSON AWARE.PT REFUSED A BATH TODAY. SHE ASKED FOR TYLENOL DURING THE MORNING FOR A HEADACHE. PT HAS NOT COMPLAINED OF PAIN EVER SINCE. PT HAS EATEN ALL HER MEALS AND HAS BEEN GOOD USING THE CALL LIGHT. PT COMPLAINED OF HER IV BEING TENDER WHEN FLUSHING THE SITE, NO SINGS OF INFILTRATION WERE NOTED, HOWEVER ON PTS REQUEST IV WAS DC'D AND A NEW IV WAS STARTED ON THE R FA.
[2016-10-22] MEDS: HYDROCODONE/APAP 5 mg/325 mg TABLET PO PRN (19:37)
[2016-10-22 19:42] VITALS: BP 118/74; PULSE 105; RESP 14; TEMP 98; O2SAT 93
[2016-10-22 20:00] VITALS: PULSE 105; RESP 14
[2016-10-22 23:13] VITALS: BP 130/85; PULSE 91; RESP 18; TEMP 97.7; O2SAT 95
[2016-10-23] MEDS: HYDROCODONE/APAP 5 mg/325 mg TABLET PO PRN ×3 (03:02→21:18)
[2016-10-23 03:23] LABS: HGB - HEMOGLOBIN 11.4 GM/DL (12-16); MEAN CORPUSCULAR HGB 36.9 UUG (26-34); MEAN CORPUSCULAR HGB CONC(MCHC 32.6 GM/DL (31-37); MEAN CORPUSCULAR VOLUME 113.3 UM3 (80-100); MEAN PLATELET VOLUME 9.9 UM3 (9.4-12.4); RED BLOOD COUNT 3.09 M/MM3 (4.00-5.20); WBC - WHITE BLOOD COUNT 6.1 T/MM3 (4.5-11.0)
[2016-10-23 03:24] LABS: BASOPHILS # (MANUAL) 0.1 T/MM3 (0-0.2); EOSINOPHILS # (MANUAL) 0.2 T/MM3 (0-0.5); MONOCYTES # (MANUAL) 0.6 T/MM3 (0-0.8); NEUTROPHILS #(MANUAL)-ABSOLUTE 3.4 T/MM3 (1.8-7.7)
[2016-10-23 03:25] LABS: ANISOCYTOSIS 1+; LYMPHOCYTES # (MANUAL) 1.9 T/MM3 (1-4.8); POIKILOCYTOSIS 1+
[2016-10-23 03:34] LABS: ANION GAP 7 MEQ/L (5-15); BUN/CREATININE RATIO 20 RATIO (6-26); CALCIUM 10.3 MG/DL (8.4-10.2); CHLORIDE 101 MEQ/L (98-107); CO2 - CARBON DIOXIDE 32 MEQ/L (22-30); CREATININE 0.6 MG/DL (0.7-1.2); GLOMERULAR FILTRATION RATE 104; GLUCOSE 98 MG/DL (65-110); MAGNESIUM 2.4 MG/DL (1.6-2.3); POTASSIUM 4.7 MEQ/L (3.6-5); SODIUM 140 MEQ/L (134-144)
--- NOTE | 2016-10-23 03:47 | NUR ---
Chest Pain Pt complained of "sharp, throbby" chest pain at approximately 1940 at 6/10. Pt also stated that she has some arm pain that worsens with movement. Vital signs stable at that time. Notified Dr. Cortez of chest pain and he ordered an EKG. Dr. Cortez stated EKG looked "reassuring." He ordered series x2 of troponin, one for 2100 and one for 0300. Both are WNL. Pt states she still has chest pain at this time. PRN [place] given x2 for leg and arm pain. Will continue to monitor.
--- NOTE | 2016-10-23 07:06 | NUR ---
STATUS PT AMBULATED WITH 1 ASSIST, GB, AND WALKER TO BR. UNSTEADY ON FEET. ADEQUATE URINE OUTPUT. COMPLAINED OF ARM/LEG/SHOULDER PAIN. GAVE NORCO X2 WITH SLIGHT DECREASE IN PAIN EACH TIME. PT SPILLED COFFEE ON LEFT CHEST AREA. SKIN REDDENED DIRECTLY AFTERWARD, BUT IS NORMAL COLORED AT THIS TIME. PT DRANK APPROX 4 CUPS OF COFFEE THIS MORNING SINCE 0400. SITTING IN CHAIR AT THIS TIME. CALL LIGHT WITHIN REACH. SHIFT REPORT GIVEN TO DAY SHIFT NURSE.
[2016-10-23 08:00] VITALS: BP 124/75; PULSE 98; RESP 16; RESP 17; TEMP 97.2; O2SAT 96
[2016-10-23] MEDS: GABAPENTIN 400 MG CAPSULE PO SCH ×3 (08:40→21:19)
[2016-10-23] MEDS: MULTIVITAMIN + MINERAL TABLET PO SCH (08:40)
[2016-10-23] MEDS: CYANOCOBALAMIN (B-12) 1000mcg/ml INJECTION IM SCH (08:41)
[2016-10-23] MEDS: FOLIC ACID 5 MG/ML INJECTION IV SCH (08:41)
[2016-10-23] MEDS: THIAMINE 200mg/2ml INJECTION IV SCH (08:42)
[2016-10-23] MEDS: PYRIDOXINE 100 MG/ML IV SCH (08:43)
[2016-10-23] MEDS: OMEPRAZOLE 20 MG CAPSULE PO SCH (08:47)
--- NOTE | 2016-10-23 12:04 | PNPDOC ---
Subjective Date DATE: 10/23/16 TIME: 12:00 Subjective Without complaints. No events overnight. States that she slowly improving. Objective Vital Signs Vital signs Vital Signs Date Time Temp Pulse Resp B/P Pulse Ox O2 Delivery O2 Flow Rate FiO2 10/23/16 08:00 98 16 10/23/16 08:00 97.2 124/75 96 Room Air 10/20/16 20:00 3.00 Height (Feet): 5 Height (Inches): 6.00 Weight (Kilograms): 76.500 General Comments General--awake, alert, oriented 3, in no acute distress. HEENT--PERRLA; EOMI Neck.--Supple, no JVD, no bruits. Cardiovascular--regular rate and rhythm. Lungs--clear to auscultation bilaterally Abdomen--benign. Extremities--no edema, cyanosis or clubbing. Neurological--cranial nerves II through XII grossly intact Rectal--deferred. Genitourinary--deferred. Skin--no rashes Laboratory Laboratory Laboratory Tests 10/23/16 03:12 Laboratory Tests 10/23/16 03:12 Assessment & Plan Problems: (1) Weakness Status: Acute Assessment & Plan: Improving. Secondary to multiple nutritional deficiencies. Continue physical therapy. 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 (6) Folic acid deficiency Status: Acute Assessment & Plan: Will change to intravenous injections while in the hospital. (7) Vitamin B6 deficiency Status: Acute (8) Thiamine deficiency Status: Acute Assessment & Plan: Will change to intravenous injections while in the hospital. (9) Hyponatremia Status: Resolved Assessment Patient admitted to swing bed to continue strengthening/PT/OT. Nutritional replacement initiated in conjunction with gabapentin for neuropathic pain. Patient's treatment has resolved and she is currently off of fluid restriction. Patient's MCV has started to improve when nutritional supplementation was converted to intravenous and intramuscular during the hospitalization. Continue physical therapy. Plan/Intensity of Service Extensive review of transfer records. Discussed with case management/nursing. Discussed with Dr. Sims prior to transfer. Code Status Full Code Hospital Course Summary Disclaimer The hospital course summary below is not to be considered part of the above Progress Note. Hospital Course Summary 10/16 Patient admitted to swing bed to continue strengthening/PT/OT. Nutritional replacement initiated in conjunction with gabapentin for neuropathic pain. Regular diet with fluid restriction for her chronic hyponatremia. Monitor electrolytes. Follow-up to be scheduled with [facility] neurology. Repeat chest x-ray in a.m. due to reported small pneumothorax 10/15. ANDRA ANDRE MD October 23, 2016 12:04
[2016-10-23 16:00] VITALS: BP 122/77; PULSE 99; RESP 17; TEMP 98.1; O2SAT 96
--- NOTE | 2016-10-23 18:06 | NUR ---
SHIFT SUMMARY PT REFUSING SHOWERING TODAY AND TO WORK WITH PT DURING THE AFTERNOON. PT RECEIVED TO DIME BOX 5 FOR LEG AND BACK PAIN AT 1305. SHE HAS NOT COMPLAINED OF PAIN EVER SINCE. SHE ATE ALL HER MEALS AND DRANK COFFEE WELL. IV IS STILL LOCKED AND WORKING. TELE WAS DC'D BY 'S ORDERS. PTS WALK IS LOW AND NOT VERY STEADY, STILL NEEDS TO USE GAIT BELT AND WALKER WITH STAND BY ASSIST.
[2016-10-23 21:25] VITALS: PULSE 102
[2016-10-23 23:03] VITALS: BP 130/82; PULSE 102; RESP 14; TEMP 98.2; O2SAT 93
[2016-10-24 02:30] VITALS: BP 134/68; PULSE 103; RESP 20; TEMP 97.7; O2SAT 97
--- NOTE | 2016-10-24 04:30 | NUR ---
Status Pt complained of knee pain. Gave PRN [place]. Pt refused to ambulate when DANA Bravo offered in the evening. Pt appeared to sleep well from 2200 to 0330. Currently sitting in chair and drinking coffee. No new concerns or significant changes at this time. Will continue to monitor.
[2016-10-24] MEDS: ACETAMINOPHEN 325 MG TABLET PO PRN ×2 (04:54→23:45)
--- NOTE | 2016-10-24 05:00 | NUR ---
Status Pt requested analgesic for pain in knee and tape/skin irritation at IV site. Agreed to use Tylenol. Pt also requested to return to bed after sitting up and drinking two cups of coffee. Will continue to monitor.
[2016-10-24 08:00] VITALS: BP 117/75; PULSE 101; RESP 16; RESP 20; TEMP 97.6; O2SAT 97
[2016-10-24] MEDS: OMEPRAZOLE 20 MG CAPSULE PO SCH (09:40)
[2016-10-24] MEDS: MULTIVITAMIN + MINERAL TABLET PO SCH (09:40)
[2016-10-24] MEDS: GABAPENTIN 400 MG CAPSULE PO SCH ×3 (09:40→21:55)
[2016-10-24] MEDS: CYANOCOBALAMIN (B-12) 1000mcg/ml INJECTION IM SCH (09:41)
[2016-10-24] MEDS: FOLIC ACID 5 MG/ML INJECTION IV SCH (09:45)
[2016-10-24] MEDS: THIAMINE 200mg/2ml INJECTION IV SCH (09:52)
[2016-10-24] MEDS: PYRIDOXINE 100 MG/ML IV SCH (09:55)
--- NOTE | 2016-10-24 11:15 | PNPDOC ---
IRU Subjective Date DATE: 10/24/16 TIME: 11:09 Subjective Patient has been admitted here to swing bed since 428. She was initially scheduled to go to IRU, but developed pneumothorax and then was sent to skilled floor instead. While on skilled, she has been doing physical therapy, feels like she is improving somewhat. Her diet is improving. She still complains of distal neuropathy both hands and feet, which is unrelenting. IRU Objective Vital Signs Vital signs Vital Signs Date Time Temp Pulse Resp B/P Pulse Ox O2 Delivery O2 Flow Rate FiO2 10/24/16 08:00 97.6 101 16 117/75 97 Room Air 10/20/16 20:00 3.00 Telemetry Rhythm: Sinus Rhythm Height (Feet): 5 Height (Inches): 6.00 Weight (Kilograms): 76.900 General General Appearance: Alert, Orientated x 3 Respiratory (Brief) Respiratory: FOUND: clear all appiah, equal bilaterally, NOT FOUND: rales, wheezes Cardiovascular (Brief) Cardiac: FOUND: regular rate, regular rhythm Capillary Refill: <2 sec Abdomen (Brief) Abdominal: FOUND: BS normo active x4, soft, NOT FOUND: distended, tender Extremities (Brief) Extremity : Comments Bilateral lower extremity with 1+ pitting edema. Psychiatric (Brief) Comments Patient is calm and relaxed, sitting up in the hallway looking out the window. Laboratory Laboratory Laboratory Tests Test 10/22/16 21:20 10/23/16 03:12 Troponin I < 0.012ng/ml < 0.012ng/ml Chemistry Specimen Hemolysis 31 < 15 White Blood Count 6.1T/MM3 Red Blood Count 3.09M/MM3 Hemoglobin 11.4GM/DL Hematocrit 35.0% Mean Corpuscular Volume 113.3UM3 Mean Corpuscular Hemoglobin 36.9UUG Mean Corpuscular Hemoglobin Concent 32.6GM/DL RDW Standard Deviation 58.4FL Platelet Count 453T/MM3 Mean Platelet Volume 9.9UM3 Neutrophils % (Manual) 55.0% Band Neutrophils % 0.0% Lymphocytes % (Manual) 31.0% Monocytes % (Manual) 10.0% Eosinophils % (Manual) 3.0% Basophils % (Manual) 1.0% Absolute Neutrophils (Manual) 3.4T/MM3 Band Neutrophils # 0.0T/MM3 Lymphocytes # (Manual) 1.9T/MM3 Monocytes # (Manual) 0.6T/MM3 Eosinophils # (Manual) 0.2T/MM3 Basophils # (Manual) 0.1T/MM3 Poikilocytosis 1+ Anisocytosis 1+ Red Cell Morphology Comment Abnormal Turbidity < 20 Sodium Level 140MEQ/L Potassium Level 4.7MEQ/L Chloride Level 101MEQ/L Carbon Dioxide Level 32MEQ/L Anion Gap 7MEQ/L Blood Urea Nitrogen 12.0MG/DL Creatinine 0.6MG/DL Glomerular Filtration Rate Calc 104 BUN/Creatinine Ratio 20RATIO Glucose Level 98MG/DL Calculated Osmolality 269MOSM/KG Calcium Level 10.3MG/DL Magnesium Level 2.4MG/DL Icterus Index < 2 Assessment & Plan Problems: (1) Folic acid deficiency Status: Acute Assessment & Plan: Supplementing during admission. We will recheck a level as MCV is still quite elevated. There is been some slight improvement from 115 to 113 further evaluated MCV. (2) Thiamine deficiency Status: Acute Assessment & Plan: Continue to supplement. (3) Polyneuropathy Status: Acute Assessment & Plan: Heart hope she'll have some improvement with improvement of 5 levels, however this will take time. We discussed this at length. Continue with supplementation of B12 and folate as well as thiamine. She is currently taking Neurontin, 2400 mg daily. We could increase her dose slightly, and go to 12 are milligrams 3 times a day. We'll discuss this with her tomorrow so she can make a final decision. (4) Weakness Status: Acute Assessment & Plan: PT and OT working with patient. Continue. (5) B12 deficiency Status: Acute Assessment & Plan: Being supplemented. B12 and folate levels will be ordered today to compare. Uncertain as to how supplementation may affect the levels. We' ll discuss this with the lab if we get aberrant levels. Assessment Patient admitted to swing bed to continue strengthening/PT/OT. Nutritional replacement initiated in conjunction with gabapentin for neuropathic pain. Patient's treatment has resolved and she is currently off of fluid restriction. Patient's MCV has started to improve when nutritional supplementation was converted to intravenous and intramuscular during the hospitalization. Continue physical therapy. Code Status Full Code Interventions to Obtain Goals PT Treatment Plan: Therapeutic Exercise, Gait Training, Functional Activities , Patient/Family Education Hospital Course Summary Disclaimer The hospital course summary below is not to be considered part of the above Progress Note. Hospital Course Summary 10/16 Patient admitted to swing bed to continue strengthening/PT/OT. Nutritional replacement initiated in conjunction with gabapentin for neuropathic pain. Regular diet with fluid restriction for her chronic hyponatremia. Monitor electrolytes. Follow-up to be scheduled with [facility] neurology. Repeat chest x-ray in a.m. due to reported small pneumothorax 10/15. 10/24/2016 Patient is improving in strength and stability. Working with physical therapy and occupational therapy. She does have incredibly elevated MCV initially at 115. Continue with supplementation of folate, thiamine, B-12. Looking towards discharged opportunity. LAWRENCE TERRELL MD October 24, 2016 11:12
--- NOTE | 2016-10-24 11:27 | PNPDOC ---
Subjective Date DATE: 10/24/16 TIME: 11:21 Subjective Subjective Patient has been admitted here to swing bed since 428. She was initially scheduled to go to IRU, but developed pneumothorax and then was sent to skilled floor instead. While on skilled, she has been doing physical therapy, feels like she is improving somewhat. Her diet is improving. She still complains of distal neuropathy both hands and feet, which is unrelenting. Objective Vital Signs Vital signs Vital Signs Date Time Temp Pulse Resp B/P Pulse Ox O2 Delivery O2 Flow Rate FiO2 10/24/16 08:00 97.6 101 16 117/75 97 Room Air 10/20/16 20:00 3.00 Telemetry Rhythm: Sinus Rhythm Height (Feet): 5 Height (Inches): 6.00 Weight (Kilograms): 76.900 General General Appearance: Alert, Orientated x 2 Respiratory (Brief) Respiratory: FOUND: clear all appiah, equal bilaterally Cardiovascular (Brief) Cardiac: FOUND: regular rate, regular rhythm Capillary Refill: <2 sec Abdomen (Brief) Abdominal: FOUND: BS normo active x4, soft, NOT FOUND: tender Extremities (Brief) Extremity : Comments 2+ pitting edema bilateral lower extremity Musculoskeletal (Brief) Comments general weakness. Laboratory Laboratory Laboratory Tests 10/23/16 03:12 Laboratory Tests 10/23/16 03:12 Assessment & Plan Problems: (1) Weakness Status: Acute Assessment & Plan: Improving. Secondary to multiple nutritional deficiencies. Continue physical therapy. PT and OT working with patient. 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 We discussed this at length. Continue with supplementation of B12 and folate as well as thiamine. She is currently taking Neurontin, 2400 mg daily. We could increase her dose slightly, and go to 12 are milligrams 3 times a day. We'll discuss this with her tomorrow so she can make a final decision. (3) Pulmonary nodule Status: Chronic Assessment & Plan: Right lung mass-pathology benign with patchy intra-alveolar hemosiderin laden macrophage clusters; 3 month follow-up CT recommended (4) Vitamin A deficiency Status: Acute (5) B12 deficiency Status: Acute Assessment & Plan: Will change to subcutaneous injections while in the hospital. Being supplemented. B12 and folate levels will be ordered today to compare. Uncertain as to how supplementation may affect the levels. We'll discuss this with the lab if we get aberrant levels. (6) Folic acid deficiency Status: Acute Assessment & Plan: Will change to intravenous injections while in the hospital. (7) Vitamin B6 deficiency Status: Acute (8) Thiamine deficiency Status: Acute Assessment & Plan: Will change to intravenous injections while in the hospital. (9) Hyponatremia Status: Resolved Assessment Patient admitted to swing bed to continue strengthening/PT/OT. Nutritional replacement initiated in conjunction with gabapentin for neuropathic pain. Patient's treatment has resolved and she is currently off of fluid restriction. Patient's MCV has started to improve when nutritional supplementation was converted to intravenous and intramuscular during the hospitalization. Continue physical therapy. Plan/Intensity of Service Extensive review of transfer records. Discussed with case management/nursing. Discussed with Dr. Sims prior to transfer. Code Status Full Code Hospital Course Summary Disclaimer The hospital course summary below is not to be considered part of the above Progress Note. Hospital Course Summary 10/16 Patient admitted to swing bed to continue strengthening/PT/OT. Nutritional replacement initiated in conjunction with gabapentin for neuropathic pain. Regular diet with fluid restriction for her chronic hyponatremia. Monitor electrolytes. Follow-up to be scheduled with [facility] neurology. Repeat chest x-ray in a.m. due to reported small pneumothorax 10/15. 10/24/2016 Patient is improving in strength and stability. Working with physical therapy and occupational therapy. She does have incredibly elevated MCV initially at 115. Continue with supplementation of folate, thiamine, B-12. Looking towards discharged opportunity. LAWRENCE TERRELL MD October 24, 2016 11:25
--- NOTE | 2016-10-24 14:16 | NUR ---
STATUS PT ALERT AND ORIENTED X3. PT SITTING UP AT BEDSIDE IN WHEEL CHAIR PER HER REQUEST. PT REPORTS FAMILY IS COMING TO VISIT HER. PT HAS BEEN PLEASANT AND COOPERATIVE WITH MINIMAL NEEDS. PT WHEELED SELF DOWN HARRELL TO LOOK OUT WINDOW AND BACK TO ROOM WITH LITTLE TO NO ASSISTANCE.
[2016-10-24 16:00] VITALS: BP 132/85; PULSE 97; RESP 16; TEMP 97.9; O2SAT 96
--- NOTE | 2016-10-24 18:21 | NUR ---
SUMMARY PT ALERT AND ORIENTED X3. PT AMBULATES WITH GAIT BELT AND WALKER AND ONE TO TWO PERSON ASSIST. PT HAS UNSTEADY GAIT WITH SPASTIC MOVEMENT OF LOWER EXTREMITIES. PT FREQUENTLY HAS BELCHING. PT MAKES NEEDS KNOWN USES CALL LIGHT AND REQUESTS GAIT BELT IN PLACE. PT ABLE TO AMBULATE SHORT DISTANCES. PT WHEELED SELF IN WHEEL CHAIR DOWN HARRELL AND BACK TO ROOM. PT SPENT MOST OF DAY IN ROOM ALTERNATING BETWEEN BED AN CHAIR WATCHING [employer] MARATHON ON TELEVISION. PT HAS HAD MINIMAL COMPLAINTS.
[2016-10-24 20:00] VITALS: PULSE 97; RESP 16
[2016-10-25] VITALS: BP 119/70; PULSE 85; RESP 16; TEMP 97.1; O2SAT 97
--- NOTE | 2016-10-25 03:00 | NUR ---
COMMUNITY DEVELOPMENT DIRECTOR informs me that she has assisted pt. to the floor after PT. knee "went out" while transferring from bed to chair. Upon arrival, pt is sitting on the floor with COMMUNITY DEVELOPMENT DIRECTOR kneeling next to her. Pt. denies being hurt. Denies hitting her head. At baseline regarding ROM of all extremities. Denies an increase of pain. Pt. expresses anger with herself for her knee "giving out". Informed Charge Nurse and House Supervisior. Pt. is moved from floor to chair with assistance of 3. pt. does not want family called. [place] text to Dr Guzman. he acknowledged my text communication; no new orders. V/S good; recorded in interventions.
[2016-10-25 03:28] VITALS: BP 115/82; PULSE 100; RESP 20; TEMP 97.5; O2SAT 96
--- NOTE | 2016-10-25 06:40 | NUR ---
SUMMARY: Ambulates to bathroom with stand by assistance; gait belt and walker. Both legs make spasmic movements at times. Seems to be worse when patient is anxious about someting. Medication given for pain in right leg. Drinks coffee and water during the night. Slept at intervals.
[2016-10-25] MEDS: HYDROCODONE/APAP 5 mg/325 mg TABLET PO PRN ×2 (06:48→14:25)
[2016-10-25 08:00] VITALS: BP 109/64; PULSE 110; RESP 18; TEMP 95.9; O2SAT 98
[2016-10-25] MEDS: FOLIC ACID 5 MG/ML INJECTION IV SCH (09:22)
[2016-10-25] MEDS: THIAMINE 200mg/2ml INJECTION IV SCH (09:22)
[2016-10-25] MEDS: GABAPENTIN 400 MG CAPSULE PO SCH ×3 (09:23→20:55)
[2016-10-25] MEDS: CYANOCOBALAMIN (B-12) 1000mcg/ml INJECTION IM SCH (09:23)
[2016-10-25] MEDS: MULTIVITAMIN + MINERAL TABLET PO SCH (09:23)
[2016-10-25] MEDS: OMEPRAZOLE 20 MG CAPSULE PO SCH (09:23)
[2016-10-25] MEDS: PYRIDOXINE 100 MG/ML IV SCH (10:03)
--- NOTE | 2016-10-25 12:43 | PNPDOC ---
CORINA FIERROA Miguel BURNT LIME DRAWER 10/25/16 1238: Subjective Date DATE: 10/25/16 TIME: 12:35 Subjective Heather is up in chair. Reports that she suffered a fall this morning. She attempted to get up unassisted; left knee "gave out". She has reported ongoing left knee pain and weakness. Has a knee brace that she did not have on. She continues to have some peripheral neuropathy. She remains on aggressive supplementation. Chart is reviewed for collateral information. Objective Vital Signs Vital signs Vital Signs Date Time Temp Pulse Resp B/P Pulse Ox O2 Delivery O2 Flow Rate FiO2 10/25/16 08:00 95.9 110 18 109/64 98 Room Air Telemetry Rhythm: Sinus Rhythm, Sinus Tachycardia Height (Feet): 5 Height (Inches): 6.00 Weight (Kilograms): 76.900 BMI EKG General General Appearance: Alert, Cooperative, No Acute Distress Eyes (Brief) Eyes: FOUND: EOMI, PERRL, NOT FOUND: scleral icterus Neck (Brief) Neck: FOUND: midline, NOT FOUND: JVD, nuchal rigidity, spasm Respiratory (Brief) Respiratory: FOUND: clear all appiah, equal bilaterally, symmetrical, NOT FOUND : rales, wheezes Cardiovascular (Brief) Cardiac: FOUND: regular rate, regular rhythm, NOT FOUND: murmur (Tachycardic upon exam. ), pedal edema Abdomen (Brief) Abdominal: FOUND: BS normo active x4, soft, NOT FOUND: distended, tender Extremities (Brief) Extremity : Side: Bilateral Extremity Finding: FOUND: pain, NOT FOUND: edema Comments Bilateral weakness Musculoskeletal (Brief) Musculoskeletal: FOUND: loss of motion, tenderness Integumentary (Brief) Integumentary: FOUND: pink, warm Neurologic (Brief) Neurological: NOT FOUND: motor, sensory Psychiatric (Brief) Psychiatric: FOUND: alert, oriented Laboratory Laboratory Reviewed labs Sepsis Diagnostic Criteria Sepsis Confirmed/Suspected Infection: No Assessment & Plan Problems: (1) Weakness Status: Acute Assessment & Plan: Improving. Secondary to multiple nutritional deficiencies. Continue physical therapy. PT and OT working with patient. 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 We discussed this at length. Continue with supplementation of B12 and folate as well as thiamine. She is currently taking Neurontin, 2400 mg daily. We could increase her dose slightly, and go to 12 are milligrams 3 times a day. We'll discuss this with her tomorrow so she can make a final decision. (3) Pulmonary nodule Status: Chronic Assessment & Plan: Right lung mass-pathology benign with patchy intra-alveolar hemosiderin laden macrophage clusters; 3 month follow-up CT recommended (4) Vitamin A deficiency Status: Acute (5) B12 deficiency Status: Acute Assessment & Plan: Will change to subcutaneous injections while in the hospital. Being supplemented. B12 and folate levels will be ordered today to compare. Uncertain as to how supplementation may affect the levels. We'll discuss this with the lab if we get aberrant levels. (6) Folic acid deficiency Status: Acute Assessment & Plan: Will change to intravenous injections while in the hospital. (7) Vitamin B6 deficiency Status: Acute (8) Thiamine deficiency Status: Acute Assessment & Plan: Will change to intravenous injections while in the hospital. (9) Hyponatremia Status: Resolved (10) Vitamin D deficiency Status: Acute (11) Tachycardia Status: Acute Plan/Intensity of Service 10/25/16- SWING status *Multiple supplement deficiency. Continue IV/IM replacement of B12, Thiamine, Folate. Reassess levels for progress. Assess Selenium for deficiency as well. Start aggressive Vit D replacement. Nutritional support. *Neuropathy Continue Gabapentin for pain control. Supplement replacement. *Tachyarrhythmia- EKG reviewed. Assess Selenium Assess TSH. Add low dose metoprolol for HR control. *Left knee pain, weakness- Encourage brace. Assess plain films. PT/OT. Overall, she is doing well. Continue supportive care. Repeat labs in AM. DVT Prophylaxis: SCD'S Code Status Full Code Hospital Course Summary Disclaimer The hospital course summary below is not to be considered part of the above Progress Note. Hospital Course Summary 10/16 Patient admitted to swing bed to continue strengthening/PT/OT. Nutritional replacement initiated in conjunction with gabapentin for neuropathic pain. Regular diet with fluid restriction for her chronic hyponatremia. Monitor electrolytes. Follow-up to be scheduled with [facility] neurology. Repeat chest x-ray in a.m. due to reported small pneumothorax 10/15. 10/24/2016 Patient is improving in strength and stability. Working with physical therapy and occupational therapy. She does have incredibly elevated MCV initially at 115. Continue with supplementation of folate, thiamine, B-12. Looking towards discharged opportunity. 10/25/16- SWING status *Multiple supplement deficiency. Continue IV/IM replacement of B12, Thiamine, Folate. Reassess levels for progress. Assess Selenium for deficiency as well. Start aggressive Vit D replacement. Nutritional support. *Neuropathy Continue Gabapentin for pain control. Supplement replacement. *Tachyarrhythmia- EKG reviewed. Assess Selenium Assess TSH. Add low dose metoprolol for HR control. *Left knee pain, weakness- Encourage brace. Assess plain films. PT/OT. Overall, she is doing well. Continue supportive care. Repeat labs in AM. LAWRENCE TERRELL MD 10/25/16 1317: Assessment & Plan Plan/Intensity of Service 10/25/16 Pt personally seen and evaluated and I agree with above assessment and plan. S- Pt resting, did fall and has worse left knee pain currently. Otherwise neuropathy pain is consistent. O- lungs--cta, cv--rrr, left knee- abrasion noted, minimal swelling. A/P 1 Neuropathy. Keep dosage of neurontin at current dose. cont with B12,thiamine , folate supplementation. 2 Tachycardia. metoprolol started for rate control. 3 Left knee contusion. Pt has chronic weakness int this leg and has not been wearing brace. She agrees to wear it, we will get xray knee. 4 PT and OT for weakness, showing slow improvement. GUANAKO Willson MD, APRN October 25, 2016 12:38 LAWRENCE TERRELL MD October 25, 2016 13:17
[2016-10-25] MEDS ORDERED: ERGOCALCIFEROL 50,000 UNIT CAPSULE PO SCH (13:56)
[2016-10-25 15:24] VITALS: BP 118/79; PULSE 97; RESP 16; TEMP 97.4; O2SAT 100
[2016-10-25 17:29] VITALS: BP 88/65; PULSE 119
--- NOTE | 2016-10-25 17:33 | NUR ---
Hypotension/Dr Notified Dr. Aguero notified of patient's low BP reading 88/65 at this time with pulse 119. Patient denies any symptoms, no lightheadedness or dizziness. Metoprolol held which Dr. Aguero agreed with. Will continue to monitor.
--- NOTE | 2016-10-25 17:50 | DI ---
Indication: ITS.REASON: Pain, weakness PROCEDURE: KNEE LEFT 3 VIEWS: Encounter: Initial Comparison: None Findings: Subtle nondisplaced fracture of the fibular neck. No additional acute fracture. There is evidence of some early periosteal reaction. Chronic growth arrest lines noted in the distal femur and proximal tibia. Impression: Closed posttraumatic subacute fibular neck fracture. .
--- NOTE | 2016-10-25 18:34 | NUR ---
Shift Summary Patient alert and oriented x3. Low BP and elevated pulse, otherwise VSS. On RA. Patient complains of pain and tingling/"pins and needles" sensation in feet and lower legs. PRN [place] given. Adequate intake and output today. No BM today. Patient up in recliner for most of the day. Ambulated in room with assist x1, gb and walker. Patient sat in courtyard this afternoon with MECHANIC DRIVER. Calm, pleasant, and cooperative with cares.
[2016-10-25] MEDS: ACETAMINOPHEN 325 MG TABLET PO PRN (19:38)
[2016-10-26] VITALS (9 sets, daily range): BP systolic 95–118; BP diastolic 59–68; PULSE 90–112; RESP 16–18; TEMP 96.1–97.6; O2SAT 93–97
--- NOTE | 2016-10-26 05:20 | NUR ---
Status Pt up/down all noc, drank several cups of coffee. Lab couldnt be drawn this am as pt has to be fasting for 12 hrs prior, she should start fasting at 5pm today for draw tomorrow morning. Educated pt. Up with walker, gait belt, and x1 assist.
[2016-10-26] MEDS: HYDROCODONE/APAP 5 mg/325 mg TABLET PO PRN ×2 (06:05→14:19)
[2016-10-26 06:55] LABS: BASOPHILS # (AUTO) 0.1 T/MM3 (0-0.2); BASOPHILS % (AUTO) 0.8 % (0-2); EOSINOPHILS # (AUTO) 0.2 T/MM3 (0-0.5); EOSINOPHILS % (AUTO) 3.2 % (0-4); HCT - HEMATOCRIT 36.8 % (36-46); HGB - HEMOGLOBIN 12.1 GM/DL (12-16); IMMATURE GRANULOCYTE # (AUTO) 0.03 T/MM3 (0.00-0.03); IMMATURE GRANULOCYTE % (AUTO) 0.5 % (0.0-0.5); LYMPHOCYTES # (AUTO) 1.5 T/MM3 (1-4.8); LYMPHOCYTES % (AUTO) 24.5 % (23-45); MEAN CORPUSCULAR HGB 36.6 UUG (26-34); MEAN CORPUSCULAR HGB CONC(MCHC 32.9 GM/DL (31-37); MEAN CORPUSCULAR VOLUME 111.2 UM3 (80-100); MONOCYTES # (AUTO) 0.7 T/MM3 (0-0.8); MONOCYTES % (AUTO) 11.1 % (0-9.0); NEUTROPHILS #(AUTO)-ABSOLUTE 3.6 T/MM3 (1.8-7.7); NEUTROPHILS % (AUTO) 59.9 % (33-66); RED BLOOD COUNT 3.31 M/MM3 (4.00-5.20)
[2016-10-26 08:27] LABS: ALBUMIN 3.8 G/DL (3.5-5.0); ANION GAP 10 MEQ/L (5-15); BUN/CREATININE RATIO 12 RATIO (6-26); CALCIUM 10.7 MG/DL (8.4-10.2); CHLORIDE 98 MEQ/L (98-107); CO2 - CARBON DIOXIDE 29 MEQ/L (22-30); CREATININE 0.6 MG/DL (0.7-1.2); GLOMERULAR FILTRATION RATE 104; GLUCOSE 105 MG/DL (65-110); MAGNESIUM 2.3 MG/DL (1.6-2.3); PHOSPHORUS 4.3 MG/DL (2.5-4.5); POTASSIUM 4.4 MEQ/L (3.6-5); SODIUM 137 MEQ/L (134-144)
[2016-10-26] MEDS: MULTIVITAMIN + MINERAL TABLET PO SCH (08:59)
[2016-10-26] MEDS: GABAPENTIN 400 MG CAPSULE PO SCH ×3 (08:59→20:09)
[2016-10-26] MEDS: OMEPRAZOLE 20 MG CAPSULE PO SCH (08:59)
[2016-10-26] MEDS: THIAMINE 200mg/2ml INJECTION IV SCH (09:01)
[2016-10-26] MEDS: FOLIC ACID 5 MG/ML INJECTION IV SCH (09:01)
[2016-10-26] MEDS: PYRIDOXINE 100 MG/ML IV SCH (09:01)
--- NOTE | 2016-10-26 12:56 | PNPDOC ---
VESTA LE V DIGITAL IMAGING SPECIALIST 10/26/16 1255: Subjective Date DATE: 10/26/16 TIME: 12:50 Subjective There he is seen this morning in follow-up while watching television. She is alert and pleasant during conversation. Reports that she needs a "new body." Reports generalized chronic pain. Denies feeing short of breath or having chest pain. No GI complaints. Heart rate 100 on auscultation, blood pressure this morning 106/67. Objective Vital Signs Vital signs Vital Signs Date Time Temp Pulse Resp B/P Pulse Ox O2 Delivery O2 Flow Rate FiO2 10/26/16 07:29 96.2 101 18 106/67 95 Room Air Telemetry Rhythm: Sinus Rhythm, Sinus Tachycardia Height (Feet): 5 Height (Inches): 6.00 Weight (Kilograms): 77.700 General General Appearance: Alert, Orientated x 3, Cooperative, No Acute Distress Eyes (Brief) Eyes: FOUND: EOMI ENMT (Brief) ENMT: FOUND: mucosa moist, normal dentition, NOT FOUND: pharnyx erythema Neck (Brief) Neck: FOUND: midline, NOT FOUND: adenopathy, carotid bruits, tracheal deviation Respiratory (Brief) Respiratory: FOUND: clear all appiah, equal bilaterally, NOT FOUND: wheezes Cardiovascular (Brief) Cardiac: FOUND: regular rate, regular rhythm, NOT FOUND: murmur, pedal edema Capillary Refill: <2 sec Abdomen (Brief) Abdominal: FOUND: BS normo active x4, soft, NOT FOUND: distended, tender Lymphatic (Brief) Lymphatic: NOT FOUND: adenopathy Musculoskeletal (Brief) Musculoskeletal: NOT FOUND: tenderness Integumentary (Brief) Integumentary: FOUND: dry, pink, warm Neurologic (Brief) Neurological: FOUND: cranial 2-12 intact Psychiatric (Brief) Psychiatric: FOUND: alert, attentive, normal affect, oriented Laboratory Laboratory Laboratory Tests 10/26/16 06:46 Laboratory Tests 10/26/16 06:46 Sepsis Diagnostic Criteria Sepsis Confirmed/Suspected Infection: No Assessment & Plan Problems: (1) Weakness Status: Acute Assessment & Plan: Improving. Secondary to multiple nutritional deficiencies. Continue physical therapy. PT and OT working with patient. 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 We discussed this at length. Continue with supplementation of B12 and folate as well as thiamine. She is currently taking Neurontin, 2400 mg daily. We could increase her dose slightly, and go to 12 are milligrams 3 times a day. We'll discuss this with her tomorrow so she can make a final decision. (3) Pulmonary nodule Status: Chronic Assessment & Plan: Right lung mass-pathology benign with patchy intra-alveolar hemosiderin laden macrophage clusters; 3 month follow-up CT recommended (4) Vitamin A deficiency Status: Acute (5) B12 deficiency Status: Acute Assessment & Plan: Will change to subcutaneous injections while in the hospital. Being supplemented. B12 and folate levels will be ordered today to compare. Uncertain as to how supplementation may affect the levels. We'll discuss this with the lab if we get aberrant levels. (6) Folic acid deficiency Status: Acute Assessment & Plan: Will change to intravenous injections while in the hospital. (7) Vitamin B6 deficiency Status: Acute (8) Thiamine deficiency Status: Acute Assessment & Plan: Will change to intravenous injections while in the hospital. (9) Hyponatremia Status: Resolved (10) Vitamin D deficiency Status: Acute (11) Tachycardia Status: Acute Plan/Intensity of Service 10/26/16 Continued multiple vitamin and mineral supplementation Continue with Neurontin 800 milligrams 3 times a day for extremity tingling and discomfort. Monitor blood pressure and tachycardia. Continue on beta diaz, Lopressor 6.25 milligrams twice a day. Continue work with PT and OT for ongoing strengthening. She did have a fall yesterday morning when her knee "gave out" CBC and chemistry this morning normal. Discuss further with attending, Dr Coburn Code Status Full Code Hospital Course Summary Disclaimer The hospital course summary below is not to be considered part of the above Progress Note. Hospital Course Summary 10/16 Patient admitted to swing bed to continue strengthening/PT/OT. Nutritional replacement initiated in conjunction with gabapentin for neuropathic pain. Regular diet with fluid restriction for her chronic hyponatremia. Monitor electrolytes. Follow-up to be scheduled with [facility] neurology. Repeat chest x-ray in a.m. due to reported small pneumothorax 10/15. 10/24/2016 Patient is improving in strength and stability. Working with physical therapy and occupational therapy. She does have incredibly elevated MCV initially at 115. Continue with supplementation of folate, thiamine, B-12. Looking towards discharged opportunity. 10/25/16- SWING status *Multiple supplement deficiency. Continue IV/IM replacement of B12, Thiamine, Folate. Reassess levels for progress. Assess Selenium for deficiency as well. Start aggressive Vit D replacement. Nutritional support. *Neuropathy Continue Gabapentin for pain control. Supplement replacement. *Tachyarrhythmia- EKG reviewed. Assess Selenium Assess TSH. Add low dose metoprolol for HR control. *Left knee pain, weakness- Encourage brace. Assess plain films. PT/OT. Overall, she is doing well. Continue supportive care. Repeat labs in AM. 10/26/16 Continued multiple vitamin and mineral supplementation Continue with Neurontin 800 milligrams 3 times a day for extremity tingling and discomfort. Monitor blood pressure and tachycardia. Continue on beta diaz, Lopressor 6.25 milligrams twice a day. Continue work with PT and OT for ongoing strengthening. She did have a fall yesterday morning when her knee "gave out" CBC and chemistry this morning normal. Discuss further with attending, ROLAND Geiger MD 10/26/16 0247: Assessment & Plan Assessment I have independently evaluated and examined this patient. I reviewed the chart, the patient's history, and the DIGITAL IMAGING SPECIALIST's documented findings as above. We discussed and formulated the assessment and plan as above with additions as below: Heather reports little change in the numbness and tingling in her extremities since admission. Her left knee has given out on several occasions and she is now wearing a soft splint. She fell yesterday but was able to go up and down 2 steps in physical therapy holding onto handrails bilaterally. She describes increased pain under her left arm and radiating around the left scapula posteriorly which worsens with any movement. The left scapular pain is similar to that she experienced prior to past shoulder surgeries. There is tenderness to palpation along the medial and inferior aspects of the left scapula. Patient can abduct her left arm proximally 80 but has significant pain when she lowers the arm. The arm can passively be raised to approximately 160. External rotation is severely impaired. +1 edema present bilateral lower extremities. Weight is up 2.2 kg from admission. Flexeril and hot packs added for pain in left upper back, may require orthopedic consultation. Multiple vitamin supplements converted to oral formulations-deficiencies believed to be nutritional, IV supplementation no longer needed. Repeat levels pending. Edema is new since transfer, will add low-dose Lasix. Calcium slightly elevated, ionized calcium pending. Suspect immobility plays a significant role, phosphorus/magnesium normal. X-ray of the left knee reviewed-proximal fibular neck fracture, slightly displaced. In addition to above diagnoses please add: #1 hypercalcemia #2 left fibular neck fracture #3 edema Plan/Intensity of Service X-rays reviewed, laboratory data reviewed, multiple medications modified. VESTA LE APRN October 26, 2016 12:55 ROLAND COBURN MD October 26, 2016 17:35
[2016-10-26] MEDS ORDERED: LORAZEPAM 0.5 MG TABLET PO PRN (14:15)
[2016-10-26] MEDS: CYCLOBENZAPRINE 10 MG TABLET PO PRN (16:12)
--- NOTE | 2016-10-26 18:32 | NUR ---
STATUS PT A/O X3. UP WITH ASSIST OF ONE WITH WALKER AND GAIT BELT. PT COMPLAINS OF PAIN IN LEFT SHOULDER. PRN [place] AND FLEXERIL GIVEN DOCUMENTED. ISAURO USED WHILE PT WAS IN CHAIR. PT ON RA, TOLERATING WELL. DENIES SOA. DENIES NAUSEA. VOIDING WELL. TOLERATING REGULAR DIET WELL. PT RESTING IN BED WITH ALARM. CALL LIGHT WITHIN REACH. WILL CONTINUE TO MONITOR.
[2016-10-27] VITALS: BP 101/67; PULSE 101; RESP 16; TEMP 96.6; O2SAT 94
[2016-10-27] MEDS: ACETAMINOPHEN 325 MG TABLET PO PRN (03:33)
[2016-10-27 05:48] VITALS: BP 109/69; PULSE 105; RESP 18; TEMP 97.2; O2SAT 97
--- NOTE | 2016-10-27 05:52 | NUR ---
Status Resting in bed with alarms in place. One person assist with gait belt and walker to chair/bathroom. C/O pain to left shoulder at 3:30, requested Tylenol and went to sleep. No other c/o.
[2016-10-27 07:31] VITALS: BP 122/85; PULSE 103; RESP 18; TEMP 96.5; O2SAT 94
[2016-10-27 07:44] VITALS: PULSE 106; RESP 18
[2016-10-27] MEDS: FOLIC ACID 1 MG TABLET PO SCH (09:08)
[2016-10-27] MEDS: PYRIDOXINE 100 MG TABLET PO SCH (09:08)
[2016-10-27] MEDS: GABAPENTIN 400 MG CAPSULE PO SCH ×3 (09:08→20:50)
[2016-10-27] MEDS: FUROSEMIDE 20 MG TABLET PO SCH (09:08)
[2016-10-27] MEDS: MULTIVITAMIN + MINERAL TABLET PO SCH (09:08)
[2016-10-27] MEDS: THIAMINE 100 MG TABLET PO SCH (09:08)
[2016-10-27] MEDS: CYANOCOBALAMIN (B-12) 500mcg TABLET PO SCH (09:09)
[2016-10-27] MEDS: OMEPRAZOLE 20 MG CAPSULE PO SCH (09:09)
[2016-10-27] MEDS: HYDROCODONE/APAP 5 mg/325 mg TABLET PO PRN ×2 (09:16→19:32)
--- NOTE | 2016-10-27 09:16 | NUR ---
PAIN MEDS had been in patients room several times this am as well as the aides. pt stated she had been using the heating pad for her shoulder. never said she needed pain meds. never told the aides she needed pain meds when they were in the room. PT went in to work with the patient. patient told PT that she had been using the heating pad and her night was not great. PT went to massage her shoulder and pt started to cry and said she was having pain. this nurse was right outside her door charting on the computer and heard her say she was having pain at a 12. this nurse got PO pain meds as charted and gave to the patient.
--- NOTE | 2016-10-27 12:56 | NUR ---
CM SPOKE WITH PT. DISCUSSED DC PLANNING. EXPLAINED THERE IS NOT A DC DATE YET, BUT THAT WE SHOULD PLAN OPTIONS FOR WHEN SHE IS RELEASED. DISCUSSED ARRANGING FAMILY TRAINING WITH SPOUSE FOR A POSSIBLE DC HOME. SHE WAS AGREEABLE TO THIS AND GAVE PERMISSION TO CALL HER SPOUSE. DISCUSSED POSSIBLE TRANSFER TO A FACILITY CLOSER TO [place]; SHE WAS AGREEABLE TO THIS. EXPLAINED THE BARRIER TO ANOTHER FACILITY MIGHT BE [facility]. SHE SAID SHE UNDERSTOOD THIS. CALLED AND SPOKE WITH PHYS THERAPY. HE WAS AGREEABLE TO STARTING FAMILY TRAINING. HE SAID PT WILL NEED A WHEELCHAIR. ATTEMPTED TO CALL SPOUSE; PHONE NUMBER RANG, NO ANSWER AND NO VOICEMAIL.
[2016-10-27] MEDS: CYCLOBENZAPRINE 10 MG TABLET PO PRN ×2 (13:14→19:32)
--- NOTE | 2016-10-27 14:41 | PNPDOC ---
VESTA LE V LACER AND TIER 10/27/16 1431: Subjective Date DATE: 10/27/16 TIME: 14:26 Subjective Heather is seen today in follow up. She reports that she is having moderate pain to left upper back and states that it was 13/10 prior to pain pills. Denies feeling short of breath or having chest pain. States she hurts too bad to cough. Appetite is good as she is eating 100% of meals. Mildly tachycardia and bp today is 122/85. Objective Vital Signs Vital signs Vital Signs Date Time Temp Pulse Resp B/P Pulse Ox O2 Delivery O2 Flow Rate FiO2 10/27/16 07:44 106 18 10/27/16 07:31 96.5 122/85 94 Room Air Telemetry Rhythm: Sinus Rhythm, Sinus Tachycardia Height (Feet): 5 Height (Inches): 6.00 Weight (Kilograms): 78.600 General General Appearance: Alert, Orientated x 3, Cooperative, No Acute Distress Eyes (Brief) Eyes: FOUND: EOMI ENMT (Brief) ENMT: FOUND: mucosa moist, normal dentition, NOT FOUND: pharnyx erythema Neck (Brief) Neck: FOUND: midline, NOT FOUND: adenopathy, carotid bruits, tracheal deviation Respiratory (Brief) Respiratory: FOUND: clear all appiah, equal bilaterally, NOT FOUND: wheezes Cardiovascular (Brief) Cardiac: FOUND: regular rate, regular rhythm, NOT FOUND: murmur, pedal edema Capillary Refill: <2 sec Abdomen (Brief) Abdominal: FOUND: BS normo active x4, soft, NOT FOUND: distended, tender Extremities (Brief) Extremity : Side: Bilateral Extremity: leg Extremity Finding: FOUND: edema (2+ bilateral lower ext) Lymphatic (Brief) Lymphatic: NOT FOUND: adenopathy Musculoskeletal (Brief) Musculoskeletal: FOUND: tenderness (Left scapula region) Integumentary (Brief) Integumentary: FOUND: dry, pink, warm Neurologic (Brief) Neurological: FOUND: cranial 2-12 intact Psychiatric (Brief) Psychiatric: FOUND: alert, attentive, normal affect, oriented Laboratory Laboratory Laboratory Tests 10/26/16 06:46 Laboratory Tests 10/26/16 06:46 Sepsis Diagnostic Criteria Sepsis Confirmed/Suspected Infection: No Assessment & Plan Problems: (1) Weakness Status: Acute Assessment & Plan: Improving. Secondary to multiple nutritional deficiencies. Continue physical therapy. PT and OT working with patient. 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 We discussed this at length. Continue with supplementation of B12 and folate as well as thiamine. She is currently taking Neurontin, 2400 mg daily. We could increase her dose slightly, and go to 12 are milligrams 3 times a day. We'll discuss this with her tomorrow so she can make a final decision. (3) Pulmonary nodule Status: Chronic Assessment & Plan: Right lung mass-pathology benign with patchy intra-alveolar hemosiderin laden macrophage clusters; 3 month follow-up CT recommended (4) Vitamin A deficiency Status: Acute (5) B12 deficiency Status: Acute Assessment & Plan: Will change to subcutaneous injections while in the hospital. Being supplemented. B12 and folate levels will be ordered today to compare. Uncertain as to how supplementation may affect the levels. We'll discuss this with the lab if we get aberrant levels. (6) Folic acid deficiency Status: Acute Assessment & Plan: Will change to intravenous injections while in the hospital. (7) Vitamin B6 deficiency Status: Acute (8) Thiamine deficiency Status: Acute Assessment & Plan: Will change to intravenous injections while in the hospital. (9) Hyponatremia Status: Resolved (10) Vitamin D deficiency Status: Acute (11) Tachycardia Status: Acute (12) Hypercalcemia Status: Acute (13) Fracture of neck of fibula Status: Chronic Qualifiers: Encounter type: subsequent encounter Assessment & Plan: Subacute (14) Edema Status: Acute Plan/Intensity of Service 10/27/16 Will increase Lopressor to 12.5mg BID for better cardiac rate control. Monitor for bradycardia or hypotension. Continue with [place] for pain control as well as Flexeril and gabapentin. Encouraged use of heat pack for comfort All mineral and vitamin supplementation switched to oral Given lower extremity edema. Continue with 20 of Lasix daily, and continue to monitor daily weight. Continue to encourage work with PT and OT for ongoing strengthening. Will discuss further plans with attending Code Status Full Code Hospital Course Summary Disclaimer The hospital course summary below is not to be considered part of the above Progress Note. Hospital Course Summary 10/16 Patient admitted to swing bed to continue strengthening/PT/OT. Nutritional replacement initiated in conjunction with gabapentin for neuropathic pain. Regular diet with fluid restriction for her chronic hyponatremia. Monitor electrolytes. Follow-up to be scheduled with [facility] [place] neurology. Repeat chest x-ray in a.m. due to reported small pneumothorax 10/15. 10/24/2016 Patient is improving in strength and stability. Working with physical therapy and occupational therapy. She does have incredibly elevated MCV initially at 115. Continue with supplementation of folate, thiamine, B-12. Looking towards discharged opportunity. 10/25/16- SWING status *Multiple supplement deficiency. Continue IV/IM replacement of B12, Thiamine, Folate. Reassess levels for progress. Assess Selenium for deficiency as well. Start aggressive Vit D replacement. Nutritional support. *Neuropathy Continue Gabapentin for pain control. Supplement replacement. *Tachyarrhythmia- EKG reviewed. Assess Selenium Assess TSH. Add low dose metoprolol for HR control. *Left knee pain, weakness- Encourage brace. Assess plain films. PT/OT. Overall, she is doing well. Continue supportive care. Repeat labs in AM. 10/26/16 Continued multiple vitamin and mineral supplementation Continue with Neurontin 800 milligrams 3 times a day for extremity tingling and discomfort. Monitor blood pressure and tachycardia. Continue on beta diaz, Lopressor 6.25 milligrams twice a day. Continue work with PT and OT for ongoing strengthening. She did have a fall yesterday morning when her knee "gave out" CBC and chemistry this morning normal. Discuss further with attending, Dr Coburn 10/27/16 Will increase Lopressor to 12.5mg BID for better cardiac rate control. Monitor for bradycardia or hypotension. Continue with [place] for pain control as well as Flexeril and gabapentin. Encouraged use of heat pack for comfort All mineral and vitamin supplementation switched to oral Given lower extremity edema. Continue with 20 of Lasix daily, and continue to monitor daily weight. Continue to encourage work with PT and OT for ongoing strengthening. ROLAND COBURN MD 10/27/16 4965: Assessment & Plan Problems: (1) Weakness Status: Acute Assessment & Plan: Improving. Secondary to multiple nutritional deficiencies. Continue physical therapy. PT and OT working with patient. 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 We discussed this at length. Continue with supplementation of B12 and folate as well as thiamine. She is currently taking Neurontin, 2400 mg daily. We could increase her dose slightly, and go to 12 are milligrams 3 times a day. We'll discuss this with her tomorrow so she can make a final decision. (3) Pulmonary nodule Status: Chronic Assessment & Plan: Right lung mass-pathology benign with patchy intra-alveolar hemosiderin laden macrophage clusters; 3 month follow-up CT recommended (4) Vitamin A deficiency Status: Acute (5) B12 deficiency Status: Acute (6) Folic acid deficiency Status: Acute (7) Vitamin B6 deficiency Status: Acute (8) Thiamine deficiency Status: Acute (9) Hyponatremia Status: Resolved (10) Vitamin D deficiency Status: Acute (11) Tachycardia Status: Acute (12) Hypercalcemia Status: Acute (13) Fracture of neck of fibula Status: Chronic Qualifiers: Encounter type: subsequent encounter Assessment & Plan: Subacute (14) Edema Status: Acute (15) Left shoulder pain Status: Acute Assessment I have independently evaluated and examined this patient. I reviewed the chart, the patient's history, and the LACER AND TIER's documented findings as above. We discussed and formulated the assessment and plan as above with additions as below: Pain around the left shoulder has increased and now extends to the anterior aspect of the shoulder and chest wall with worsening with any activity including deep inspiration. Heather feels shoulder symptoms are now limiting ability to participate in PT. Breath sounds remained clear with good airflow bilaterally. Diffuse tenderness to palpation left upper back and anterior chest wall. Ionized calcium minimally elevated; shoulder films reviewed-no obvious bony deformity and lung well expanded in upper lung field. Orthopedics consultation. Vitamin B levels pending. Thiamine reordered as apparently canceled in the lab. VESTA LE APRN October 27, 2016 14:31 ROLAND COBURN MD October 27, 2016 18:57
[2016-10-27 15:07] VITALS: BP 105/60; PULSE 62; RESP 16; TEMP 97.5; O2SAT 95
--- NOTE | 2016-10-27 16:02 | NUR ---
CM STAFFED CASE WITH ELECTROLYSIST. DISCUSSED ANTICIPATED DC DATE OF WED, 10-30-16; EITHER HOME IF PT FEELS COMFORTABLE AND SPOUSE CAN MANAGE HER CARES VS. [facility]IV[facility] F[facility]. SPOKE AGAIN WITH PT ABOUT THIS. SHE SAID SHE THINKS SHE SHOULD GO TO [facility]. THEN, SHE SAID SHE HOPES SHE CAN GO HOME WITH HOME HEALTH DAILY. SHE SAID SHE CANNOT AFFORD TO PAY ANYTHING OUT OF POCKET TOWARDS HOME HEALTH. REVIEWED THAT WE WILL FOLLOW UP WITH BOTH PLANS--[facility] ([facility]OSSIBLY [facility]) VS. RETURN HOME WITH SPOUSE, WHEELCHAIR, POSSIBLE HOME HEALTH. SHE ASKED THAT THIS WORKER FOLLOW UP WITH HER SISTER IN LAW ABOUT THE PLAN.
--- NOTE | 2016-10-27 17:24 | NUR ---
STATUS pt is alert and oriented X3. pt has had some pain and was given prn pain meds as charted. pt gets up with assist X1 using the gaitbelt and walker. pt is on room air. pt has sat in the chair this shift to eat meals and watch television. rested in bed this shift as well. pt is eating dinner and visiting with company. call light within reach.
[2016-10-27 20:00] VITALS: PULSE 98; RESP 18
[2016-10-28] VITALS (7 sets, daily range): BP systolic 118–135; BP diastolic 63–84; PULSE 95–106; RESP 16–20; TEMP 95.4–97.4; O2SAT 92–98
[2016-10-28] MEDS: HYDROCODONE/APAP 5 mg/325 mg TABLET PO PRN ×3 (02:48→15:48)
[2016-10-28 03:52] LABS: FOLATE 7.9 NG/ML (2.76-20); VITAMIN B12 - BATCH > 1000 PG/ML (239-931)
--- NOTE | 2016-10-28 05:25 | NUR ---
Status Pt sleeping well this morning. Had pain to left shoulder and received PRN [place] x2, also uses heating pad. BR with assist, gait belt and walker. A/O x3, no change.
[2016-10-28] MEDS: CYANOCOBALAMIN (B-12) 500mcg TABLET PO SCH (08:38)
[2016-10-28] MEDS: THIAMINE 100 MG TABLET PO SCH (08:38)
[2016-10-28] MEDS: PYRIDOXINE 100 MG TABLET PO SCH (08:38)
[2016-10-28] MEDS: GABAPENTIN 400 MG CAPSULE PO SCH ×3 (08:38→21:19)
[2016-10-28] MEDS: MULTIVITAMIN + MINERAL TABLET PO SCH (08:39)
[2016-10-28] MEDS: FOLIC ACID 1 MG TABLET PO SCH (08:39)
[2016-10-28] MEDS: FUROSEMIDE 20 MG TABLET PO SCH (08:40)
[2016-10-28] MEDS: OMEPRAZOLE 20 MG CAPSULE PO SCH (08:41)
--- NOTE | 2016-10-28 10:40 | DI ---
EXAM: SHOULDER LEFT 2-3 VIEWS LOCATION OF DICTATION: [facility] HISTORY: ITS.REASON: shoulder pain COMPARISON: No prior studies available for comparison. FINDINGS: Normal alignment of the glenohumeral and acromioclavicular joints without dislocation or subluxation. There is normal osseous mineralization. There are no acute fractures demonstrated. There is mild osteoarthrosis about the acromioclavicular joint. The surrounding soft tissues are within normal limits. The visible lung field is clear. IMPRESSION: 1. No evidence for malalignment or acute fracture. 2. Mild osteoarthrosis of the AC joint. .
--- NOTE | 2016-10-28 11:17 | NUR ---
CM SPOKE WITH PT'S SISTER IN LAW. UPDATED HER ON POTENTIAL DC DATE AND PLAN. SHE SUGGESTED POSSIBLE [facility] IN [place], AND [facility] IN [place]. SPOKE WITH PT ABOUT THESE OPTIONS. PT WAS AGREEABLE TO TRYING THEM. SHE SAID HER #1 CHOICE IS [facility] SINCE IT IS HERE IN [place], THEN #2 IS [facility]. SHE WAS ALSO AGREEABLE TO THIS WORKER REACHING OUT TO [facility] AND [facility] OPTIONS. SHE GAVE PERMISSION TO RELEASE RECORDS TO ALL.
--- NOTE | 2016-10-28 13:45 | NUR ---
STATUS PER SANDRA MARAVILLA STUDENT, PT WAS ABOUT TO BE TRANSFERRED FROM WHEELCHAIR TO COMMODE. PT WAS INSTRUCTED TO HOLD STILL WHILE JESÚS LOCKED THE WHEELCHAIR. ONE SIDE WAS LOCKED, WHEN PT BEGAN SCOOTING FORWARD. PT INSTRUCTED TO STOP SCOOTING FORWARD, HOWEVER CONTINUED TO SCOOT. JESÚS ATTEMPTED TO WRAP ARMS AROUND PT TO MOVE HER BACK TO THE CHAIR, HOWEVER PT STATED CONTINUED TO SLIDE DOWN. VSS. PT DENIES LIGHTHEADEDNESS. PT REPORTED BILATERAL LEG PAIN AND LEFT SHOULDER PAIN PRIOR TO FALL. PT REQUESTS NO FAMILY BE NOTIFIED AT THIS TIME. WILL CONTINUE TO MONITOR.
[2016-10-28] MEDS: ACETAMINOPHEN 325 MG TABLET PO PRN (14:14)
--- NOTE | 2016-10-28 14:43 | NUR ---
PT Note: Declines treatment 1424 Pt declines to participate in PT this date stating "Im not doing well" Pt reports she slide to the floor from the toilet this a.m. and her pain has been uncontrolled since but states "Its just starting to get better I would give it an 11 now". WIRED MUSIC OPERATOR discussed treatment option with pt. including gait training, transfer training at bed side, bed mobility training or bed level activity but pt. continues to decline to participate. Will continue to treat according to POC. Please call [phone] with any questions.
--- NOTE | 2016-10-28 15:55 | PNPDOC ---
VESTA LE V CEMETERY MANAGER 10/28/16 1545: Subjective Date DATE: 10/28/16 TIME: 15:41 Subjective Heather is seen this afternoon while resting in the chair. She continues to complain of significant pain to the left shoulder. She reports pain is constant no matter what position she is in. She feels that Llewellyn 2 tabs only helps briefly to decrease pain. Nursing staff reports she slid out of the wheel chair earlier today while transferring to the bathroom. She denies any specific injury as she was assisted to the floor. She continues to have 2+ bilateral lower extremity edema. BP 119/63. Objective Vital Signs Vital signs Vital Signs Date Time Temp Pulse Resp B/P Pulse Ox O2 Delivery O2 Flow Rate FiO2 10/28/16 15:19 95.4 99 17 119/63 96 Room Air Telemetry Rhythm: Sinus Rhythm, Sinus Tachycardia Height (Feet): 5 Height (Inches): 6.00 Weight (Kilograms): 77.600 General General Appearance: Alert, Cooperative, No Acute Distress Eyes (Brief) Eyes: FOUND: EOMI ENMT (Brief) ENMT: FOUND: mucosa moist, normal dentition, NOT FOUND: pharnyx erythema Neck (Brief) Neck: FOUND: midline, NOT FOUND: adenopathy, carotid bruits, tracheal deviation Respiratory (Brief) Respiratory: FOUND: clear all appiah, equal bilaterally, NOT FOUND: wheezes Cardiovascular (Brief) Cardiac: FOUND: regular rate, regular rhythm, NOT FOUND: murmur, pedal edema Capillary Refill: <2 sec Abdomen (Brief) Abdominal: FOUND: BS normo active x4, soft, NOT FOUND: distended, tender Lymphatic (Brief) Lymphatic: NOT FOUND: adenopathy Musculoskeletal (Brief) Musculoskeletal: FOUND: tenderness (left posterior shoulder pain) Integumentary (Brief) Integumentary: FOUND: dry, pink, warm Neurologic (Brief) Neurological: FOUND: cranial 2-12 intact Psychiatric (Brief) Psychiatric: FOUND: alert, attentive, normal affect, oriented Sepsis Diagnostic Criteria Sepsis Confirmed/Suspected Infection: No Assessment & Plan Problems: (1) Weakness Status: Acute Assessment & Plan: Improving. Secondary to multiple nutritional deficiencies. Continue physical therapy. PT and OT working with patient. 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 We discussed this at length. Continue with supplementation of B12 and folate as well as thiamine. She is currently taking Neurontin, 2400 mg daily. We could increase her dose slightly, and go to 12 are milligrams 3 times a day. We'll discuss this with her tomorrow so she can make a final decision. (3) Pulmonary nodule Status: Chronic Assessment & Plan: Right lung mass-pathology benign with patchy intra-alveolar hemosiderin laden macrophage clusters; 3 month follow-up CT recommended (4) Vitamin A deficiency Status: Acute (5) B12 deficiency Status: Acute (6) Folic acid deficiency Status: Acute (7) Vitamin B6 deficiency Status: Acute (8) Thiamine deficiency Status: Acute (9) Hyponatremia Status: Resolved (10) Vitamin D deficiency Status: Acute (11) Tachycardia Status: Chronic (12) Hypercalcemia Status: Acute (13) Fracture of neck of fibula Status: Chronic Qualifiers: Encounter type: subsequent encounter Assessment & Plan: Subacute (14) Edema Status: Acute (15) Left shoulder pain Status: Acute Qualifiers: Chronicity: acute Qualified Codes: M25.512 - Pain in left shoulder Plan/Intensity of Service 10/28/16 Continue to monitor pulse and blood pressure on increase Lopressor. No evidence of bradycardia, pulse consistently 100 Given continued minimal pain control will increase Llewellyn to 10 mg 1-2 tabs as needed in addition to Flexeril and gabapentin Shoulder X-ray did not reveal any acute fractures, with mention of mild osteoarthrosis of AC joint. Orthopedic team to evaluate patient today. Continue with oral mineral and vitamin supplementation oral Lasix 20 mg daily for ongoing diuresing. Continue to monitor daily weight. Will recheck BMP tomorrow morning to follow electrolytes and renal function Continue to encourage work with PT and OT for ongoing strengthening. Code Status Full Code Hospital Course Summary Disclaimer The hospital course summary below is not to be considered part of the above Progress Note. Hospital Course Summary 10/16 Patient admitted to swing bed to continue strengthening/PT/OT. Nutritional replacement initiated in conjunction with gabapentin for neuropathic pain. Regular diet with fluid restriction for her chronic hyponatremia. Monitor electrolytes. Follow-up to be scheduled with [facility] neurology. Repeat chest x-ray in a.m. due to reported small pneumothorax 10/15. 10/24/2016 Patient is improving in strength and stability. Working with physical therapy and occupational therapy. She does have incredibly elevated MCV initially at 115. Continue with supplementation of folate, thiamine, B-12. Looking towards discharged opportunity. 10/25/16- SWING status *Multiple supplement deficiency. Continue IV/IM replacement of B12, Thiamine, Folate. Reassess levels for progress. Assess Selenium for deficiency as well. Start aggressive Vit D replacement. Nutritional support. *Neuropathy Continue Gabapentin for pain control. Supplement replacement. *Tachyarrhythmia- EKG reviewed. Assess Selenium Assess TSH. Add low dose metoprolol for HR control. *Left knee pain, weakness- Encourage brace. Assess plain films. PT/OT. Overall, she is doing well. Continue supportive care. Repeat labs in AM. 10/26/16 Continued multiple vitamin and mineral supplementation Continue with Neurontin 800 milligrams 3 times a day for extremity tingling and discomfort. Monitor blood pressure and tachycardia. Continue on beta diaz, Lopressor 6.25 milligrams twice a day. Continue work with PT and OT for ongoing strengthening. She did have a fall yesterday morning when her knee "gave out" CBC and chemistry this morning normal. Discuss further with attending, Dr Coburn 10/27/16 Will increase Lopressor to 12.5mg BID for better cardiac rate control. Monitor for bradycardia or hypotension. Continue with Llewellyn for pain control as well as Flexeril and gabapentin. Encouraged use of heat pack for comfort All mineral and vitamin supplementation switched to oral Given lower extremity edema. Continue with 20 of Lasix daily, and continue to monitor daily weight. Continue to encourage work with PT and OT for ongoing strengthening. 10/28/16 Continue to monitor pulse and blood pressure on increase Lopressor. No evidence of bradycardia, pulse consistently 100 Given continued minimal pain control will increase Llewellyn to 10 mg 1-2 tabs as needed in addition to Flexeril and gabapentin Shoulder X-ray did not reveal any acute fractures, with mention of mild osteoarthrosis of AC joint. Orthopedic team to evaluate patient today. Continue with oral mineral and vitamin supplementation oral Lasix 20 mg daily for ongoing diuresing. Continue to monitor daily weight. Will recheck BMP tomorrow morning to follow electrolytes and renal function Continue to encourage work with PT and OT for ongoing strengthening. ROLAND COBURN MD 10/28/16 1756: Assessment & Plan Problems: (1) Weakness Status: Acute Assessment & Plan: Improving. Secondary to multiple nutritional deficiencies. Continue physical therapy. PT and OT working with patient. 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 [facility] (3) Pulmonary nodule Status: Chronic Assessment & Plan: Right lung mass-pathology benign with patchy intra-alveolar hemosiderin laden macrophage clusters; 3 month follow-up CT recommended (4) Vitamin A deficiency Status: Acute (5) B12 deficiency Status: Acute (6) Folic acid deficiency Status: Acute (7) Vitamin B6 deficiency Status: Acute (8) Thiamine deficiency Status: Acute (9) Hyponatremia Status: Resolved (10) Vitamin D deficiency Status: Acute (11) Tachycardia Status: Chronic (12) Hypercalcemia Status: Acute (13) Fracture of neck of fibula Status: Chronic Qualifiers: Encounter type: subsequent encounter Assessment & Plan: Subacute (14) Edema Status: Acute (15) Left shoulder pain Status: Acute Qualifiers: Chronicity: acute Qualified Codes: M25.512 - Pain in left shoulder Assessment & Plan: Steroid injection per orthopedics 10/28/16; probable rotator cuff tear Assessment I have independently evaluated and examined this patient. I reviewed the chart, the patient's history, and the CEMETERY MANAGER's documented findings as above. We discussed and formulated the assessment and plan as above with additions as below: Ongoing pain in the upper left chest and back, aggravated by any movement or touch. Denies injuries associated with slipping to the floor earlier today. Remains hypersensitive to palpation of the anterior shoulder and upper chest wall. Respirations nonlabored and lung appiah clear. Cardiac rhythm regular. EKG reviewed by [id number] sinus tachycardia, inferior Q's in leads 3 and aVF-seen previously on EKG about a week ago. [place] record reviewed-no EKG reported during that hospitalization nor was echocardiogram obtained. Will obtain echocardiogram to look for evidence of cardiomyopathy given persistent tachycardia and baseline abnormalities on EKG. Patient denies history of any cardiac disease. B 12 and folic acid have improved with supplementation. Thiamine pending. Plan/Intensity of Service Discussed with orthopedics, laboratory data reviewed. EKG reviewed by myself. Medications modified as noted previously. VESTA LE APRN October 28, 2016 15:45 ROLAND COBURN MD October 28, 2016 17:56 VESTA LE APRN October 28, 2016 15:45 ROLAND COBURN MD October 28, 2016 17:56
--- NOTE | 2016-10-28 16:07 | NUR ---
STATUS PT ALERT AND ORIENTED X3. PT ON RA, DENIES SOA. RATES PAIN 8/10, PRN NORCO ADMINISTERED. IVL RIGHT FOREARM. UP WITH ASSIST X1, GAIT BELT, WALKER. ADEQUATE URINE OUTPUT. PT ABLE TO MAKE NEEDS KNOWN. CHAIR ALARM ON, CALL LIGHT WITHIN REACH.
--- NOTE | 2016-10-28 16:10 | NUR ---
STUDENT CHARTING REVIEWED BY THIS NURSE.
[2016-10-28] MEDS ORDERED: BUPIVACAINE 0.25% (2.5mg/ml) INJ 30ml SDV INJ ONE (16:15)
[2016-10-28] MEDS ORDERED: LIDOCAINE 1% (10mg/ml) 30ml SDV INJ ONE (16:15)
[2016-10-28] MEDS ORDERED: BETAMETHASONE 6mg/ml INJECTION IJ ONE (16:15)
--- NOTE | 2016-10-28 16:38 | CONSPD ---
Consultation Info Date DATE: 10/28/16 TIME: 16:07 Attending Physician Elliot Gomez MD Reason for Consultation: Left shoulder pain Impression/Recommendation Impression/Recommendation: (1) Left shoulder pain Status: Acute Qualifiers: Chronicity: acute Qualified Codes: M25.512 - Pain in left shoulder Recommendation: This is likely a recurrent rotator cuff tear. I have spoken with the hospital service about EKG to rule out cardiac origin of pain. They have agreed to order tests and follow in that regard. Recommendation was a corticosteroid injection and PT for PROM. She may need to rest the shoulder in a sling for short periods of time, but total sling immobilization is not recommended in order to avoid adhesive capsulitis. In the long distance operator if her health were to improve this issue could be re visited with an MRI and discussion about further surgical options. At this juncture, she is not a good surgical candidate and we will try to address her pain with an injection. Procedure: After obtaining written and verbal consent and using sterile technique the left shoulder subacromial space was infiltrated with a combination of 3 ml of 1% Lidocaine, 3ml of 0.25% Marcaine and 1 ml of Betamethasone. The patient tolerated the procedure well. Ortho HPI HPI Elements HPI This is a 56 year old female with chief complaint of left shoulder, chest and scapular pain. She traces her pain anterior along the pectoralis radiating laterally along the chest. She has pain over the anterolateral acromion as well. Her pain has been present for years, but in the last few days has gotten appreciably worse. She has had two previous rotator cuff repairs by unknown surgeons. She reports she never really recovered with strength or range of motion from those surgeries. However, her pain did improve to some extent until she began to have multiple falls secondary to her nutritional deficiencies and weakness. In her treatment for her deficiencies, she was evaluated at [facility] and then transferred to [facility] swing bed for further care. In traveling from [place] to [place] she was getting in the car and had increase in shoulder pain. In addition she has slipped out of her wheelchair at least twice since being here and has caused increased left shoulder pain. Her pain does not truly radiated, but she does have bilateral decreased sensation in all the finger tips. This has been present since her onset of her nutritional deficiencies. Pain is worse with any activity, better with rest. She has decreased strength and range of motion. Overhead activity is excruciating. The medical team has been treating her pain with [place] 5/325 and has just made an adjustment to [place] 10/325. I have spoken to the medical team about her chest wall pain and they have agreed to work it up with an EKG. Review of Systems Constitutional: REPORTS: weakness, DENIES: chills, fever Cardiovascular chest pain (see HPI), see HPI Vascular: pedal edema (medical service aware), DENIES: unilateral swelling Pulmonary Respiratory: DENIES: cough GI Upper Abdomen: DENIES: pain, vomiting Musculoskeletal General: pain, tenderness (anterior lateral acromial border.) Integumentary Skin: DENIES: ulcers Neurological General: numbness, see HPI, weakness Past Medical History Adult Problem List Updates 1. GERD 2. Hyponatremia 3. History of alcohol abuse 4. Ascending neuropathy of unclear etiology, possibly vitamin deficiencies 5. Vitamin B-12/B-6//thiamine/folic acid/vitamin A deficiencies 6. Right upper lobe nodule Surgical History Patient's Surgical History: 1. Left rotator cuff repair 2 2. Hysterectomy with bilateral salpingo-oophorectomy Current Medications Acetaminophen (Tylenol) 325 Mg Tablet, 2 TAB PO Q4HPRN, (Reported) Last Taken: Unknown Dose on Unknown Date & Time Cyanocobalamin (Vitamin B-12 ) (Vitamin B-12) 1,000 Mcg Tablet, 1 TAB PO DAILY, (Reported) Last Taken: Unknown Dose on 10/16/16 0833 Folic Acid (Folic Acid) 1 Mg Tablet , 1 TAB PO DAILY, (Reported) Last Taken: Unknown Dose on 10/16/16 0833 Gabapentin (Gabapentin) 400 Mg Capsule, 2 CAP PO TID, (Reported) Last Taken: Unknown Dose on 10/16/16 1500 Hydrocodone/Acetaminophen (Lortab 5 -325 mg Tablet) 1 Each Tablet, 1-2 TAB PO Q6H PRN for PAIN, (Reported) Last Taken: Unknown Dose on 10/16/16 1048 Multivitamin/Iron/Folic Acid ( Centrum Complete Multivit Tab) 1 Each Tablet, 1 TAB PO DAILY, (Reported) Last Taken: Unknown Dose on Unknown Date & Time Omeprazole (Omeprazole) 40 Mg Capsule.dr, 1 CAP PO DAILY, (Reported) Last Taken: Unknown Dose on 10/16/16 0645 Ondansetron (Ondansetron Odt) 4 Mg Tab.rapdis, 4 MG PO Q4HR PRN for NAUSEA, (Reported) Last Taken: Unknown Dose on Unknown Date & Time Pyridoxine HCl (Pyridoxine HCl) 25 Mg Tablet, 25 MG PO DAILY, (Reported) Last Taken: Unknown Dose on 10/16/16 1518 Thiamine (Thiamine HCl) 100 Mg Tablet, 100 MG PO DAILY, (Reported) Last Taken: Unknown Dose on 10/16/16 0830 Allergies Allergies: Coded Allergies: NKDA (Verified Allergy, Unknown, 10/16/16) Family History Family History: No history of diabetes or malignancy. Vaccines No Social History Smoking Status: Current some day smoker (smoking a few cigarettes daily prior to admission; no cigarettes since hospitalization) Substance Use Type: does not use Alcohol Intake: none (alcohol free for 1/2-2 years) Marital Status: Sexuality: male partner Household Members: spouse Advance Directives: Yes Full Code, No DPOA for Healthcare Only Physical Exam General General: well nourished, well developed, no acute distress Respiratory FOUND non-labored Cardiovascular FOUND regular rate Capillary Refill: <2 sec Abdomen Abdominal: FOUND BS normo active x4, FOUND soft Musculoskeletal Musculoskeletal Brief: FOUND: loss of motion, spasm, tenderness, Not FOUND: deformity Comments Left shoulder. ROM limited to 60 degrees abduction, FF. Can provide 4/5 restistence with IR/ER. AB and empty can postitions are 3/5 with significant pain. Integumentary FOUND dry, FOUND pink, FOUND warm Neurologic FOUND intact to light touch Comments decreased sensation throughout left arm. reflexes 2/4 biceps Psychiatric FOUND alert, FOUND normal affect Laboratory Laboratory Tests Test 10/28/16 11:18 Whole Blood Vitamin B1 Level Pending Radiology Radiology X-ray reviewed of left shoulder. Maintained GH space. Decreased humeral acromial space. Type 2 acromion. No acute injury. Slightly high riding humeral head. CHAS MALLOY October 28, 2016 16:15
--- NOTE | 2016-10-28 16:43 | NUR ---
CM THIS WORKER MADE SEVERAL CALLS TO PT'S ; HOWEVER, THERE WAS EITHER NO ANSWER/NO VOICEMAIL OR PHONE WAS BUSY. THIS WORKER LEFT MESSAGES WITH RASHID AT [facility] AND WITH RADHA AT [facility]. THIS WORKER CALLED [facility], SPOKE WITH TIFFANIE JUNIOR: [facility]. SHE SAID THEY DO HAVE 1 FEMALE BED OPENED AND TO FAX THE RECORDS SO SHE CAN REVIEW IT. RECORDS WERE FAXED. THIS WORKER CALLED ALANA AT [facility]. HE ALSO SAID TO FAX THE RECORDS AND HE CAN REVIEW IT. RECORDS FAXED.
--- NOTE | 2016-10-28 16:50 | NUR ---
PROCEDURE PT HAD A L SUBACROMIAL INJECTION BY CHAS ALBERT FOR SHOULDER PAIN RELIEF. NO COMPLICATIONS NOTED DURING PROCEDURE. WILL CONTINUE TO MONITOR PTS PAIN.
--- NOTE | 2016-10-28 18:48 | NUR ---
SUMMARY AFTER RECEIVING REPORT JAGDISH BARBER RN AND LOCK OPERATOR, NEFTALY HAD A L SUBACROMIAL INJECTION TO HELP WITH HER SHOULDER PAIN AND AN EKG WHICH READ SINUS TACH. PT ATE DINNER AND IS NOW LAYING IN BED WITH A HEATING PAD ON L SHOULDER.
--- NOTE | 2016-10-29 08:00 | NUR ---
RECEIVED REPORT PATIENT IS ALERT AND ORIENTED. UP TO CHAIR FOR BREAKFAST. DENIES PAIN AT THIS TIME. RA. VSS.
[2016-10-29 08:15] VITALS: BP 127/86; PULSE 103; RESP 16; TEMP 96.8; O2SAT 94
[2016-10-29 08:17] VITALS: PULSE 103; RESP 16
[2016-10-29] MEDS: THIAMINE 100 MG TABLET PO SCH (08:26)
[2016-10-29] MEDS: FUROSEMIDE 20 MG TABLET PO SCH (08:27)
[2016-10-29] MEDS: FOLIC ACID 1 MG TABLET PO SCH (08:27)
[2016-10-29] MEDS: GABAPENTIN 400 MG CAPSULE PO SCH ×3 (08:27→19:39)
[2016-10-29] MEDS: MULTIVITAMIN + MINERAL TABLET PO SCH (08:28)
[2016-10-29] MEDS: CYANOCOBALAMIN (B-12) 500mcg TABLET PO SCH (08:28)
[2016-10-29] MEDS: PYRIDOXINE 100 MG TABLET PO SCH (08:28)
[2016-10-29] MEDS: OMEPRAZOLE 20 MG CAPSULE PO SCH (08:32)
--- NOTE | 2016-10-29 11:00 | NUR ---
STATUS PATIENT IS UP IN CHAIR. NO CONCERNS REPORTED THIS MORNING.
--- NOTE | 2016-10-29 11:10 | NUR ---
CM THIS WORKER SPOKE TO PT ON THIS DATE. THIS WORKER INTRODUCED SELF AND ROLE OF CASE MANAGEMENT. PT IS IN AGREEMENT WITH REFERRALS TO BE MADE AND IS PLANNING ON A [facility] FOR A SHORT TIME BEFORE RETURNING HOME TO HER IN [place]. PT REQUESTED THAT I SPEAK TO JESÚS (FAMILY MEMBER) REGARDING REFERRALS, FINANCIAL SUPPORT, AND RECOMMENDATIONS. THIS WORKER SPOKE WITH JESÚS ON THIS DATE AND UPDATED ON REFERRALS FOR PLACEMENT IN [facility]. THIS WORKER SPOKE TO VERNON AT [facility] REGARDING REFERRAL. REFERRAL RE-FAXED. THIS WORKER ALSO CONTACTED [facility] AND RE-FAXED REFERRAL. THIS WORKER SPOKE TO JOVI AT [facility] AND PT WILL NEED TO PAY [address] FOR HER FIRST MONTH. CASE MANAGEMENT WILL CONTINUE TO FOLLOW ALONG AND ASSIST IN DISCHARGE PLANNING.
--- NOTE | 2016-10-29 11:51 | NUR ---
Status Patient complains of generalized pain 01/28. [place] x2 given. Patient denies breathing difficulties/nausea. Eating good. Hopes to be able to go home soon.
[2016-10-29 15:22] VITALS: BP 119/77; PULSE 110; RESP 16; O2SAT 95
--- NOTE | 2016-10-29 18:26 | NUR ---
Status Patient requests pain meds, pain 01/28. [place] x2 tablets given. Good appetite. Up with a walker to bathroom, states her knee wants to give out at times. Breathing comfortably on RA.
[2016-10-30 00:14] VITALS: BP 126/69; PULSE 99; RESP 20; TEMP 97.5; O2SAT 95
--- NOTE | 2016-10-30 04:16 | NUR ---
Status Pt A/Ox3. Weak and unsteady on feet. Woke at approx 0100 and has remained awake until this time. Requested several cups of coffee during that time. At approx 0100, pt was crying from severe pain (10/10) and stated, "I tried to roll to my left side. I should have known better!" Pt stated that the pain was focused at left shoulder blade. Pain on reassessment was 6/10. Bed alarm on. Uses call light appropriately. Will continue to monitor.
--- NOTE | 2016-10-30 08:00 | NUR ---
RECEIVED REPORT PATIENT IS ALERT AND ORIENTED. PATIENT IS ALREADY UP IN CHAIR FRO BREAKFAST. DENIES PAIN OR ANY OTHER CONCERNS AT THIS TIME. RA. VSS.
[2016-10-30 08:03] VITALS: BP 131/78; PULSE 94; RESP 16; TEMP 97.1; O2SAT 98
[2016-10-30 08:07] VITALS: PULSE 94; RESP 18
[2016-10-30] MEDS: OMEPRAZOLE 20 MG CAPSULE PO SCH (08:13)
[2016-10-30] MEDS: GABAPENTIN 400 MG CAPSULE PO SCH ×3 (08:13→21:19)
[2016-10-30] MEDS: PYRIDOXINE 100 MG TABLET PO SCH (08:14)
[2016-10-30] MEDS: FUROSEMIDE 20 MG TABLET PO SCH (08:14)
[2016-10-30] MEDS: FOLIC ACID 1 MG TABLET PO SCH (08:14)
[2016-10-30] MEDS: MULTIVITAMIN + MINERAL TABLET PO SCH (08:15)
[2016-10-30] MEDS: CYANOCOBALAMIN (B-12) 500mcg TABLET PO SCH (08:15)
[2016-10-30] MEDS: THIAMINE 100 MG TABLET PO SCH (08:15)
[2016-10-30] MEDS ORDERED: ERGOCALCIFEROL 50,000 UNIT CAPSULE PO SCH (09:00)
--- NOTE | 2016-10-30 12:43 | NUR ---
CM CARE ASSESSMENT WAS COMPLETED. CALLED AND SPOKE WITH ALANA WITH [facility]; HE SAID THE PT WAS APPROVED MEDICALLY BUT HE HAS TO GET THE CASE APPROVED A PENDING STATUS. HE REQUESTED CARE BE FAXED TO HIM; THIS WAS DONE. CALLED RASHID AT [facility]; HE NEEDS TO KNOW WHEN THE MEDICAID APPLICATION WAS SUBMITTED, AND HE IS ALSO STILL FINDING OUT HOW MUCH PRIVATE PAY PER DAY WOULD BE (INCLUDING THERAPIES). HE WILL CALL THIS WORKER ONCE HE KNOWS.
[2016-10-30 15:41] VITALS: BP 104/69; PULSE 94; RESP 18; TEMP 98.4; O2SAT 96
--- NOTE | 2016-10-30 15:55 | NUR ---
CM SPOKE WITH PT, RE: [facility]. UPDATED HER THAT [facility] IS CONSIDERING, AND EXPLAINED MIN IS WANTING TO KNOW WHEN HER MEDICAID ROYER WAS SUBMITTED. SHE SAID SHE THINKS IT WAS IN SEPTEMBER 2016. THIS WORKER LEFT MESSAGE WITH RASHID ABOUT THIS. DISCUSSED FAMILY TRAINING WITH SPOUSE. SHE SAID SHE JUST SPOKE WITH HIM THIS MORNING. SHE SAID SHE WILL CALL HIM AND ASK HIM TO COME FOR FAMILY TRAINING, AND THAT HE COULD PROBABLY BE HER EITHER TODAY OR TOMORROW. THIS WORKER ASKED, IF [facility] OR [facility] ACCEPTS HER, WILL SHE GO THERE? AND SHE SAID SHE WILL.
--- NOTE | 2016-10-30 16:34 | NUR ---
CM MDS: PHYSICAL STATUS: WEAK, FALL RISK. NEEDS AT DC: DC PLAN IS EITHER [facility] VS. HOME WITH SPOUSE. IT PT DC'S HOME, SHE WILL NEED DME (WALKER, WHEELCHAIR) AND HOME HEALTH Addendum: 10/30/16 at 1635 by RAMOS ODONNELL Amended: Links added.
--- NOTE | 2016-10-30 16:49 | NUR ---
SIVA CALL TO ALANA WITH [facility]; HE SAID PT IS NOT ACCEPTED. CALL TO VERNON WITH [facility]; SHE SAID PT IS NOT ACCEPTED.
--- NOTE | 2016-10-30 18:57 | NUR ---
STATUS PATIENT STAYS ON RECLINER ALL DAY. VERBALIZED PAIN ONCE TO HER LEFT SHOULDER. NORCO WAS ADMINISTERED. PATIENT DRINKS PLENTY OF COFFEE AND USES THE BATHROOM OFTEN. NO NEW CONCERNS REPORTED THIS DAY.
[2016-10-30 19:22] VITALS: RESP 18
--- NOTE | 2016-10-30 19:57 | PNPDOC ---
Subjective Date DATE: 10/30/16 TIME: 19:47 Subjective Heather reports persistent pain in her left shoulder that is limiting any use of the arm. This is particularly problematic when she works with occupational therapy. She reports her is in a be able to visit tomorrow. She nearly fell in the bathroom earlier today when her foot slid to the side causing her to lean against the wall for support. She did not fall to the ground on this occasion. She denies constipation, nausea, or palpitations. Her appetite is okay. She describes mild dyspnea unchanged from earlier in the hospital stay without cough. Objective Vital Signs Vital signs Vital Signs Date Time Temp Pulse Resp B/P Pulse Ox O2 Delivery O2 Flow Rate FiO2 10/30/16 19:22 18 10/30/16 15:41 98.4 94 104/69 96 Room Air NAD, alert, interacts appropriately/pleasantly Respirations nonlabored, good airflow, clear Regular rhythm, S1-S2 Abdomen soft, nontender +1 edema bilateral lower extremities Holding left arm against her chest wall, passive abduction limited to about 30 due to pain-significantly reduced from earlier in the week Telemetry Rhythm: Sinus Rhythm, Sinus Tachycardia Height (Feet): 5 Height (Inches): 6.00 Weight (Kilograms): 78.600 Laboratory Laboratory Thiamine pending Sepsis Diagnostic Criteria Sepsis Confirmed/Suspected Infection: No Assessment & Plan Problems: (1) Weakness Status: Acute Assessment & Plan: Improving. Secondary to multiple nutritional deficiencies. Continue physical therapy. 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 [place] (3) Left shoulder pain Status: Acute Qualifiers: Chronicity: acute Qualified Codes: M25.512 - Pain in left shoulder Assessment & Plan: Steroid injection per orthopedics 10/28/16; probable rotator cuff tear (4) Hypercalcemia Status: Acute (5) Edema Status: Acute (6) Fracture of neck of fibula Status: Chronic Qualifiers: Encounter type: subsequent encounter Assessment & Plan: Subacute (7) Pulmonary nodule Status: Chronic Assessment & Plan: Right lung mass-pathology benign with patchy intra-alveolar hemosiderin laden macrophage clusters; 3 month follow-up CT recommended (8) B12 deficiency Status: Acute (9) Folic acid deficiency Status: Acute (10) Vitamin B6 deficiency Status: Acute (11) Thiamine deficiency Status: Acute (12) Vitamin A deficiency Status: Acute (13) Vitamin D deficiency Status: Acute (14) Tachycardia Status: Chronic (15) Hyponatremia Status: Resolved Assessment Physical therapy reports that patient's gait is improving. Continue therapy. Left shoulder symptoms limit progress particularly with occupational therapy. May eventually require MRI and consideration of reverse shoulder arthroplasty. Continue replacement of multiple vitamins. Tachycardia slightly improved-echo pending, discussed with Dr. North. Reassess hemoglobin and electrolytes early next week. Plan/Intensity of Service Stress with Dr. North, laboratory data ordered. Code Status Full Code Hospital Course Summary Disclaimer The hospital course summary below is not to be considered part of the above Progress Note. Hospital Course Summary 10/16 Patient admitted to swing bed to continue strengthening/PT/OT. Nutritional replacement initiated in conjunction with gabapentin for neuropathic pain. Regular diet with fluid restriction for her chronic hyponatremia. Monitor electrolytes. Follow-up to be scheduled with [facility] neurology. Repeat chest x-ray in a.m. due to reported small pneumothorax 10/15. 10/24/2016 Patient is improving in strength and stability. Working with physical therapy and occupational therapy. She does have incredibly elevated MCV initially at 115. Continue with supplementation of folate, thiamine, B-12. Looking towards discharged opportunity. 10/25/16- SWING status *Multiple supplement deficiency. Continue IV/IM replacement of B12, Thiamine, Folate. Reassess levels for progress. Assess Selenium for deficiency as well. Start aggressive Vit D replacement. Nutritional support. *Neuropathy Continue Gabapentin for pain control. Supplement replacement. *Tachyarrhythmia- EKG reviewed. Assess Selenium Assess TSH. Add low dose metoprolol for HR control. *Left knee pain, weakness- Encourage brace. Assess plain films. PT/OT. Overall, she is doing well. Continue supportive care. Repeat labs in AM. 10/26/16 Continued multiple vitamin and mineral supplementation Continue with Neurontin 800 milligrams 3 times a day for extremity tingling and discomfort. Monitor blood pressure and tachycardia. Continue on beta diaz, Lopressor 6.25 milligrams twice a day. Continue work with PT and OT for ongoing strengthening. She did have a fall yesterday morning when her knee "gave out" CBC and chemistry this morning normal. Discuss further with attending, Dr Coburn 10/27/16 Will increase Lopressor to 12.5mg BID for better cardiac rate control. Monitor for bradycardia or hypotension. Continue with [place] for pain control as well as Flexeril and gabapentin. Encouraged use of heat pack for comfort All mineral and vitamin supplementation switched to oral Given lower extremity edema. Continue with 20 of Lasix daily, and continue to monitor daily weight. Continue to encourage work with PT and OT for ongoing strengthening. 10/28/16 Continue to monitor pulse and blood pressure on increase Lopressor. No evidence of bradycardia, pulse consistently 100 Given continued minimal pain control will increase [place] to 10 mg 1-2 tabs as needed in addition to Flexeril and gabapentin Shoulder X-ray did not reveal any acute fractures, with mention of mild osteoarthrosis of AC joint. Orthopedic team to evaluate patient today. Continue with oral mineral and vitamin supplementation oral Lasix 20 mg daily for ongoing diuresing. Continue to monitor daily weight. Will recheck BMP tomorrow morning to follow electrolytes and renal function Continue to encourage work with PT and OT for ongoing strengthening. 10/30/16 Physical therapy reports that patient's gait is improving. Continue therapy. Left shoulder symptoms limit progress particularly with occupational therapy. May eventually require MRI and consideration of reverse shoulder arthroplasty. Continue replacement of multiple vitamins. Tachycardia slightly improved-echo pending, discussed with Dr. North. Reassess hemoglobin and electrolytes early next week. ROLAND COBURN MD October 30, 2016 19:50
[2016-10-30 23:02] VITALS: BP 129/75; PULSE 89; RESP 12; TEMP 95.9; O2SAT 95
[2016-10-31] MEDS: ACETAMINOPHEN 325 MG TABLET PO PRN (03:42)
--- NOTE | 2016-10-31 04:50 | NUR ---
Chart Check 24 hour chart check completed
--- NOTE | 2016-10-31 04:56 | NUR ---
Status Pt slept between approximately 2300 and 0330, then got up and sat in the recliner. Gave [place] once and acetaminophen once for pain in shoulder and knee at 8/10. Upon reassessment it was at 6/10 both times. Pt still wobbly on feet and needs x1 assist with GB and walker. No new concerns noted. Will continue to monitor.
[2016-10-31 08:08] VITALS: BP 110/68; PULSE 98; RESP 16; TEMP 97; O2SAT 95
[2016-10-31] MEDS: FOLIC ACID 1 MG TABLET PO SCH (08:10)
[2016-10-31] MEDS: GABAPENTIN 400 MG CAPSULE PO SCH ×3 (08:11→20:14)
[2016-10-31] MEDS: FUROSEMIDE 20 MG TABLET PO SCH (08:11)
[2016-10-31] MEDS: MULTIVITAMIN + MINERAL TABLET PO SCH (08:11)
[2016-10-31] MEDS: CYANOCOBALAMIN (B-12) 500mcg TABLET PO SCH (08:12)
[2016-10-31] MEDS: THIAMINE 100 MG TABLET PO SCH (08:12)
[2016-10-31] MEDS: OMEPRAZOLE 20 MG CAPSULE PO SCH (08:26)
[2016-10-31] MEDS: PYRIDOXINE 100 MG TABLET PO SCH (08:26)
--- NOTE | 2016-10-31 10:05 | PDORTHOPN ---
Subjective Date DATE: 10/31/16 TIME: 09:56 Subjective Heather is in good spirits today anticipating her coming by to visit. She states her pain is a 7/10, but is happy, sitting in a chair in no obvious signs of distress. To my eye, she appears much less painful than at my last visit. She discribes left chest wall pain over the pectoralis, coursing laterally wrapping around the axilla and then to the scapula. She does not describe true lateral or deltoid shoulder pain today. She state the shoulder is "sore" and that the shot didn't seem to do a lot of good. She reports the sensation in her hands is improving. Objective Vital Signs Vital signs Vital Signs 10/30/16 10/31/16 23:02 08:08 Temp 95.9 97.0 Pulse 89 98 Resp 12 16 B/P 129/75 110/68 Pulse Ox 95 95 O2 Delivery Room Air Room Air Height (Feet): 5 Height (Inches): 6.00 Weight (Kilograms): 80.200 General General Appearance: Alert, Orientated x 3, No Acute Distress Respiratory (Brief) Respiratory Brief: FOUND: non-labored Cardiovascular (Brief) Cardiac: FOUND: calf easily compressible, calf soft, nontender, pedal pulses intact Abdomen (Brief) Abdominal Brief: FOUND: soft Extremities (Brief) Extremity : Side: Left Extremity: shoulder Extremity Findings: NOT FOUND: deformity, discoloration, reddened, warm Comments Heather can demonstrated 80 degrees of FF, AB. ER is limited to 30 degrees. Strength is 4/5 throughout all planes. Much less TTP over anterior lateral shoulder. 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 She reports minimal change with her subacromial shot. However, she is much less painful today and demonstrates increase ROM. Her remaining pain does not correlated with typical RTC pain. Will defer to medical service in this regard. Hospital Course Summary Disclaimer The visit summary below is not to be considered part of the above Progress Note. Hospital Course 10/16 Patient admitted to swing bed to continue strengthening/PT/OT. Nutritional replacement initiated in conjunction with gabapentin for neuropathic pain. Regular diet with fluid restriction for her chronic hyponatremia. Monitor electrolytes. Follow-up to be scheduled with [facility] neurology. Repeat chest x-ray in a.m. due to reported small pneumothorax 10/15. 10/24/2016 Patient is improving in strength and stability. Working with physical therapy and occupational therapy. She does have incredibly elevated MCV initially at 115. Continue with supplementation of folate, thiamine, B-12. Looking towards discharged opportunity. 10/25/16- SWING status *Multiple supplement deficiency. Continue IV/IM replacement of B12, Thiamine, Folate. Reassess levels for progress. Assess Selenium for deficiency as well. Start aggressive Vit D replacement. Nutritional support. *Neuropathy Continue Gabapentin for pain control. Supplement replacement. *Tachyarrhythmia- EKG reviewed. Assess Selenium Assess TSH. Add low dose metoprolol for HR control. *Left knee pain, weakness- Encourage brace. Assess plain films. PT/OT. Overall, she is doing well. Continue supportive care. Repeat labs in AM. 10/26/16 Continued multiple vitamin and mineral supplementation Continue with Neurontin 800 milligrams 3 times a day for extremity tingling and discomfort. Monitor blood pressure and tachycardia. Continue on beta diaz, Lopressor 6.25 milligrams twice a day. Continue work with PT and OT for ongoing strengthening. She did have a fall yesterday morning when her knee "gave out" CBC and chemistry this morning normal. Discuss further with attending, Dr Coburn 10/27/16 Will increase Lopressor to 12.5mg BID for better cardiac rate control. Monitor for bradycardia or hypotension. Continue with [place] for pain control as well as Flexeril and gabapentin. Encouraged use of heat pack for comfort All mineral and vitamin supplementation switched to oral Given lower extremity edema. Continue with 20 of Lasix daily, and continue to monitor daily weight. Continue to encourage work with PT and OT for ongoing strengthening. 10/28/16 Continue to monitor pulse and blood pressure on increase Lopressor. No evidence of bradycardia, pulse consistently 100 Given continued minimal pain control will increase [place] to 10 mg 1-2 tabs as needed in addition to Flexeril and gabapentin Shoulder X-ray did not reveal any acute fractures, with mention of mild osteoarthrosis of AC joint. Orthopedic team to evaluate patient today. Continue with oral mineral and vitamin supplementation oral Lasix 20 mg daily for ongoing diuresing. Continue to monitor daily weight. Will recheck BMP tomorrow morning to follow electrolytes and renal function Continue to encourage work with PT and OT for ongoing strengthening. 10/30/16 Physical therapy reports that patient's gait is improving. Continue therapy. Left shoulder symptoms limit progress particularly with occupational therapy. May eventually require MRI and consideration of reverse shoulder arthroplasty. Continue replacement of multiple vitamins. Tachycardia slightly improved-echo pending, discussed with Dr. North. Reassess hemoglobin and electrolytes early next week. CHAS MALLOY October 31, 2016 09:59
[2016-10-31 12:10] VITALS: BP 116/84; PULSE 105; RESP 18; TEMP 96.6; O2SAT 95
[2016-10-31 15:02] VITALS: BP 121/67; PULSE 109; RESP 18; TEMP 95.8; O2SAT 97
[2016-10-31 15:46] VITALS: BP 120/71; PULSE 108; RESP 16; TEMP 97.5; O2SAT 98
--- NOTE | 2016-10-31 16:13 | NUR ---
NOTE PATIENT IN WHEELCHAIR, PUSHING HER IN WC, REPORTED GOING TO [facility] AND WILL WHEEL AROUND THE HOSPITAL. I REINFORCED PATIENT NEEDED TO STAY IN WHEELCHAIR, DO NOT ATTEMPT TO STAND WITHOUT STAFF PRESENT.
--- NOTE | 2016-10-31 16:43 | NUR ---
NOTE PATIENT IS BACK IN ROOM, AT BEDSIDE.
--- NOTE | 2016-10-31 17:25 | NUR ---
SHIFT SUMMARY PATIENT IS AOX3, C/O PAIN IN BACK, L KNEE 12/28, NORCO GIVEN TWICE DURING SHIFT, PATIENT REPORTED MILD IMPROVEMENT. PATIENT UP WITH ONE ASSIST, GAIT BELT AND WALKER. INSTRUCTED PATIENT TO CALL FOR ASSISTANCE IF NEEDS TO USE TOILET. AMBULATED WITH PATIENT 3 TIMES IN HALLWAY. PATIENT ATE MEALS WELL, MODERATE BM TODAY. PATIENT RFA SL IV, PATENT, FLUSHED WELL. AT BEDSIDE. TOOK PATIENT IN WHEELCHAIR TO GIFT [facility]OP TODAY. IN ROOM NOW. WILL CONT TO MONITOR.
--- NOTE | 2016-10-31 18:15 | NUR ---
meal Pt had family member take her down to cafeteria in to eat dinner together. Back to room at 1800, tolerated well.
[2016-11-01 00:35] VITALS: BP 110/73; PULSE 105; RESP 12; TEMP 97; O2SAT 95
[2016-11-01] MEDS: ACETAMINOPHEN 325 MG TABLET PO PRN (03:42)
--- NOTE | 2016-11-01 04:59 | NUR ---
Status present throughout shift. Pt more cheerful and happy. VSS. Pt requested analgesics twice during shift. Gave [place] once and acetaminophen once. Slight improvement in shoulder pain noted. Up x1, GB, and walker. Refused to ambulate in evening. Bed alarm on. Call light within reach. Will continue to monitor.
[2016-11-01 08:00] VITALS: BP 138/87; PULSE 94; RESP 16; TEMP 96.5; O2SAT 97
[2016-11-01] MEDS ORDERED: CYANOCOBALAMIN (B-12) 1000mcg/ml INJECTION IM SCH (08:57)
[2016-11-01] MEDS: CYANOCOBALAMIN (B-12) 500mcg TABLET PO SCH (09:21)
[2016-11-01] MEDS: MULTIVITAMIN + MINERAL TABLET PO SCH (09:22)
[2016-11-01] MEDS: OMEPRAZOLE 20 MG CAPSULE PO SCH (09:22)
[2016-11-01] MEDS: GABAPENTIN 400 MG CAPSULE PO SCH ×3 (09:22→23:10)
[2016-11-01] MEDS: FUROSEMIDE 20 MG TABLET PO SCH (09:22)
[2016-11-01] MEDS: THIAMINE 100 MG TABLET PO SCH (09:22)
[2016-11-01] MEDS: PYRIDOXINE 100 MG TABLET PO SCH (09:22)
[2016-11-01] MEDS: FOLIC ACID 1 MG TABLET PO SCH (09:22)
--- NOTE | 2016-11-01 11:14 | PNPDOC ---
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 and family at her bedside. She reports that she continues to have left should pain and does not feel that she got much relief from injection. She is noted to be using left arm while opening mail. She reports that the pain continues to limit her with range of motion as well as sleeping on the left side. Her knee continues to feel weak. Otherwise she denies having chest pain or shortness of breath. No GI complains. Objective Vital Signs Vital signs Vital Signs Date Time Temp Pulse Resp B/P Pulse Ox O2 Delivery O2 Flow Rate FiO2 11/01/16 08:00 96.5 94 16 138/87 97 Room Air Telemetry Rhythm: Sinus Rhythm, Sinus Tachycardia Height (Feet): 5 Height (Inches): 6.00 Weight (Kilograms): 79.000 General General Appearance: Alert, Orientated x 3, Cooperative, No Acute Distress Eyes (Brief) Eyes: FOUND: EOMI ENMT (Brief) ENMT: FOUND: mucosa moist, normal dentition, NOT FOUND: pharnyx erythema Neck (Brief) Neck: FOUND: midline, NOT FOUND: adenopathy, carotid bruits, tracheal deviation Respiratory (Brief) Respiratory: FOUND: clear all appiah, equal bilaterally, NOT FOUND: wheezes Cardiovascular (Brief) Cardiac: FOUND: regular rate, regular rhythm, NOT FOUND: murmur, pedal edema Capillary Refill: <2 sec Abdomen (Brief) Abdominal: FOUND: BS normo active x4, soft, NOT FOUND: distended, tender Extremities (Brief) Extremity : Side: Bilateral Extremity: leg Extremity Finding: FOUND: edema (1+ bilaterally) Lymphatic (Brief) Lymphatic: NOT FOUND: adenopathy Musculoskeletal (Brief) Musculoskeletal: FOUND: tenderness (Left posterior shoulder) Integumentary (Brief) Integumentary: FOUND: dry, pink, warm Neurologic (Brief) Neurological: FOUND: cranial 2-12 intact Psychiatric (Brief) Psychiatric: FOUND: alert, attentive, normal affect, oriented Sepsis Diagnostic Criteria Sepsis Confirmed/Suspected Infection: No Assessment & Plan Problems: (1) Weakness Status: Acute Assessment & Plan: Improving. Secondary to multiple nutritional deficiencies. Continue physical therapy. 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 [place] (3) Left shoulder pain Status: Acute Qualifiers: Chronicity: acute Qualified Codes: M25.512 - Pain in left shoulder Assessment & Plan: Steroid injection per orthopedics 10/28/16; probable rotator cuff tear (4) Hypercalcemia Status: Acute (5) Edema Status: Acute (6) Fracture of neck of fibula Status: Chronic Qualifiers: Encounter type: subsequent encounter Assessment & Plan: Subacute (7) Pulmonary nodule Status: Chronic Assessment & Plan: Right lung mass-pathology benign with patchy intra-alveolar hemosiderin laden macrophage clusters; 3 month follow-up CT recommended (8) B12 deficiency Status: Acute (9) Folic acid deficiency Status: Acute (10) Vitamin B6 deficiency Status: Acute (11) Thiamine deficiency Status: Acute (12) Vitamin A deficiency Status: Acute (13) Vitamin D deficiency Status: Acute (14) Tachycardia Status: Chronic (15) Hyponatremia Status: Resolved Plan/Intensity of Service 11/01/16 Will add Lidoderm patch topically for additional pain control to left shoulder. Continue with [place] 10 for pain control. Appreciate orthopedic evaluation and recommendations. She received a subacromial injection on 10/28. System mild tachycardia. ECHO read pending. Continue on Lopressor 12.5 milligrams twice a day. Blood pressure well controlled. Continue to encourage work with PT/OT for continued strength gaining. Code Status Full Code Hospital Course Summary Disclaimer The hospital course summary below is not to be considered part of the above Progress Note. Hospital Course Summary 10/16 Patient admitted to swing bed to continue strengthening/PT/OT. Nutritional replacement initiated in conjunction with gabapentin for neuropathic pain. Regular diet with fluid restriction for her chronic hyponatremia. Monitor electrolytes. Follow-up to be scheduled with [facility] neurology. Repeat chest x-ray in a.m. due to reported small pneumothorax 10/15. 10/24/2016 Patient is improving in strength and stability. Working with physical therapy and occupational therapy. She does have incredibly elevated MCV initially at 115. Continue with supplementation of folate, thiamine, B-12. Looking towards discharged opportunity. 10/25/16- SWING status *Multiple supplement deficiency. Continue IV/IM replacement of B12, Thiamine, Folate. Reassess levels for progress. Assess Selenium for deficiency as well. Start aggressive Vit D replacement. Nutritional support. *Neuropathy Continue Gabapentin for pain control. Supplement replacement. *Tachyarrhythmia- EKG reviewed. Assess Selenium Assess TSH. Add low dose metoprolol for HR control. *Left knee pain, weakness- Encourage brace. Assess plain films. PT/OT. Overall, she is doing well. Continue supportive care. Repeat labs in AM. 10/26/16 Continued multiple vitamin and mineral supplementation Continue with Neurontin 800 milligrams 3 times a day for extremity tingling and discomfort. Monitor blood pressure and tachycardia. Continue on beta diaz, Lopressor 6.25 milligrams twice a day. Continue work with PT and OT for ongoing strengthening. She did have a fall yesterday morning when her knee "gave out" CBC and chemistry this morning normal. Discuss further with attending, Dr Coburn 10/27/16 Will increase Lopressor to 12.5mg BID for better cardiac rate control. Monitor for bradycardia or hypotension. Continue with [place] for pain control as well as Flexeril and gabapentin. Encouraged use of heat pack for comfort All mineral and vitamin supplementation switched to oral Given lower extremity edema. Continue with 20 of Lasix daily, and continue to monitor daily weight. Continue to encourage work with PT and OT for ongoing strengthening. 10/28/16 Continue to monitor pulse and blood pressure on increase Lopressor. No evidence of bradycardia, pulse consistently 100 Given continued minimal pain control will increase [place] to 10 mg 1-2 tabs as needed in addition to Flexeril and gabapentin Shoulder X-ray did not reveal any acute fractures, with mention of mild osteoarthrosis of AC joint. Orthopedic team to evaluate patient today. Continue with oral mineral and vitamin supplementation oral Lasix 20 mg daily for ongoing diuresing. Continue to monitor daily weight. Will recheck BMP tomorrow morning to follow electrolytes and renal function Continue to encourage work with PT and OT for ongoing strengthening. 10/30/16 Physical therapy reports that patient's gait is improving. Continue therapy. Left shoulder symptoms limit progress particularly with occupational therapy. May eventually require MRI and consideration of reverse shoulder arthroplasty. Continue replacement of multiple vitamins. Tachycardia slightly improved-echo pending, discussed with Dr. North. Reassess hemoglobin and electrolytes early next week. 11/01/16 Will add Lidoderm patch topically for additional pain control to left shoulder. Continue with [place] 10 for pain control. Appreciate orthopedic evaluation and recommendations. She received a subacromial injection on 10/28. System mild tachycardia. ECHO read pending. Continue on Lopressor 12.5 milligrams twice a day. Blood pressure well controlled. Continue to encourage work with PT/OT for continued strength gaining. ROLAND COBURN MD 11/01/16 1308: Assessment & Plan Assessment I have independently evaluated and examined this patient. I reviewed the chart, the patient's history, and the POWER [employer] EQUIPMENT REPAIRER's documented findings as above. We discussed and formulated the assessment and plan as above with additions as below: Heather reports that her right ankle try to buckle this morning but she's not had further falls. Shoulder symptoms are unchanged. Patient actively abducted left arm 30-40, marked tenderness to light palpation soft tissues left upper chest wall and upper back. B1 level 174-upper normal range Continue active therapies, among mail received is suggestion that Medicaid has been improved although she's not received a card or formal notification. Can try lidocaine anterior and posterior left chest wall. VESTA LE APRN November 01, 2016 11:06 ROLAND COBURN MD November 01, 2016 13:08
[2016-11-01 15:54] VITALS: BP 145/72; PULSE 101; RESP 16; TEMP 97.5; O2SAT 97
--- NOTE | 2016-11-01 18:21 | NUR ---
SHIFT SUMMARY PT HAS BEEN PLEASANT AND HAPPY TODAY, PTS HAS BEEN AT BEDSIDE ALL DAY TODAY. THEY WENT TO THE [place] TO EAT FOR ALL THE MEALS. WE ARE STILL USING A GAIT BELT AND A WALKER FOR SHORT DISTANCES, PTS GAIT IS STILL UNSTEADY BUT NOT BAD THE LAST TIME I SAW PT ON WEDNESDAY. PT HAS BEEN MORE WILLING TO WALK TODAY THAN OTHER DAYS. WAS GIVEN 1 [place]CO 10 FOR PAIN TO HER SHOULDER DURING THE AFTERNOON, AND SHE HAS NOT COMPLAINED OF PAIN EVER SINCE. PT REFUSED TO TAKE A BATH OR SHOWER TODAY. PT HAS BEEN OFF THE CALL LIGHT TODAY SIGNIFICANTLY IN COMPARISON TO OTHER DAYS. WILL CONTINUE TO MONITOR.
[2016-11-01 20:00] VITALS: PULSE 101; RESP 16
[2016-11-01] MEDS: LIDOCAINE PATCH REMOVAL TOP SCH (21:00)
[2016-11-01 23:22] VITALS: BP 136/82; PULSE 81; RESP 18; TEMP 96.8; O2SAT 99
--- NOTE | 2016-11-02 04:17 | NUR ---
SHIFT SUMMARY PT A/O X 3. PLEASANT AND COOPERATIVE WITH CARES. PT'S CONTINUES TO STAY WITH HER. PT REQUEST [place]CO X 1. UP WITH ONE ASSIST TO THE BR. FWW AND GAIT BELT USED. GAIT IS STEADY WITH THE ASSIST. NOTED TO BE DIFFICULT TO MOVE LEGS AT TIMES. PT SLEPT WELL FOR FIRST PART OF THE NIGHT. CALLS FOR ASSIST TO THE BR. CALL LIGHT WITHIN REACH. BED ALARM ON.
[2016-11-02 06:49] LABS: BASOPHILS # (AUTO) 0.1 T/MM3 (0-0.2); BASOPHILS % (AUTO) 0.9 % (0-2); EOSINOPHILS # (AUTO) 0.2 T/MM3 (0-0.5); EOSINOPHILS % (AUTO) 2.5 % (0-4); HCT - HEMATOCRIT 37.2 % (36-46); IMMATURE GRANULOCYTE # (AUTO) 0.06 T/MM3 (0.00-0.03); IMMATURE GRANULOCYTE % (AUTO) 0.8 % (0.0-0.5); LYMPHOCYTES # (AUTO) 1.5 T/MM3 (1-4.8); LYMPHOCYTES % (AUTO) 19.8 % (23-45); MEAN CORPUSCULAR HGB 35.4 UUG (26-34); MEAN CORPUSCULAR HGB CONC(MCHC 32.3 GM/DL (31-37); MEAN CORPUSCULAR VOLUME 109.7 UM3 (80-100); MEAN PLATELET VOLUME 10.1 UM3 (9.4-12.4); MONOCYTES # (AUTO) 0.9 T/MM3 (0-0.8); MONOCYTES % (AUTO) 11.5 % (0-9.0); NEUTROPHILS % (AUTO) 64.5 % (33-66); RED BLOOD COUNT 3.39 M/MM3 (4.00-5.20); WBC - WHITE BLOOD COUNT 7.7 T/MM3 (4.5-11.0)
[2016-11-02 06:56] LABS: ANION GAP 8 MEQ/L (5-15); BUN/CREATININE RATIO 15 RATIO (6-26); CALCIUM 10.2 MG/DL (8.4-10.2); CHLORIDE 100 MEQ/L (98-107); CO2 - CARBON DIOXIDE 32 MEQ/L (22-30); CREATININE 0.6 MG/DL (0.7-1.2); GLOMERULAR FILTRATION RATE 104; GLUCOSE 101 MG/DL (65-110); POTASSIUM 4.5 MEQ/L (3.6-5); SODIUM 140 MEQ/L (134-144)
[2016-11-02 07:31] VITALS: BP 129/73; PULSE 105; RESP 12; TEMP 96.3; O2SAT 96
[2016-11-02] MEDS ORDERED: LIDOCAINE 5% PATCH TOP SCH (09:00)
[2016-11-02] MEDS: OMEPRAZOLE 20 MG CAPSULE PO SCH (09:33)
[2016-11-02] MEDS: FUROSEMIDE 20 MG TABLET PO SCH (09:33)
[2016-11-02] MEDS: GABAPENTIN 400 MG CAPSULE PO SCH ×3 (09:33→21:25)
[2016-11-02] MEDS: FOLIC ACID 1 MG TABLET PO SCH (09:33)
[2016-11-02] MEDS: CYANOCOBALAMIN (B-12) 500mcg TABLET PO SCH (09:33)
[2016-11-02] MEDS: PYRIDOXINE 100 MG TABLET PO SCH (09:33)
[2016-11-02] MEDS: THIAMINE 100 MG TABLET PO SCH (09:33)
[2016-11-02] MEDS: MULTIVITAMIN + MINERAL TABLET PO SCH (09:34)
[2016-11-02] MEDS: LIDOCAINE 5% PATCH TOP SCH (09:34)
[2016-11-02 09:55] VITALS: PULSE 105; RESP 8
--- NOTE | 2016-11-02 14:34 | NUR ---
CM PT AND SPOUSE WORKED WITH PHYS THERAPY. PER PHYS THERAPY, THIS WENT WELL. SPOKE WITH PT AND SPOUSE, AND THEY SAID THEY BOTH FELT IT WENT REALLY WELL AND WANT FOR PT TO BE DC'D HOME. THIS WORKER REVIEWED THE OPTIONS OF PURSUING FACILITY PLACEMENT VS. HOME WITH SPOUSE; THEY BOTH STATED AGAIN THAT THEY WANT PT TO GO HOME AND NOT TO A FACILITY. SPOUSE STATED HE CAN MANAGE PT'S CARES AND FEELS COMFORTABLE ABOUT THIS. THEY SAID PT NEEDS A WHEELCHAIR. THIS WORKER CALLED ALANA WITH [employer]; ARRANGED FOR WHEELCHAIR TO BE DELIVERED TO HOSPITAL TOMORROW MORNING. PT AND SPOUSE FELT COMFORTABLE LEAVING TOMORROW AFTER THE WHEELCHAIR ARRIVES. THEY SAID THEY WILL GET A TUB CHAIR THROUGH THE [facility], AND THEIR [facility] WILL INSTALL GRAB BARS AND ALSO A WHEELCHAIR RAMP. THEY SAID THEY HAVE A WALKER AT HOME NOW AND A GAIT BELT. THEY HAD NO FURTHER DME NEEDS. REVIEWED HOME HEALTH; EXPLAINED THIS WORKER WILL ATTEMPT AGAIN TO ARRANGE HOME HEALTH, HOWEVER SO FAR NOT ABLE TO DO SO DUE TO NOT HAVING INSURANCE. PT AND SPOUSE STATED THEY FEEL COMFORTABLE RETURNING HOME WITH THE EXCERCISES THAT PHYS THERAPY PROVIDED. REVIEWED MEDICATIONS: THEY STATED THAT THEY CAN AFFORD THE MEDS THIS MONTH, AND NEXT MONTH, "WE WILL GET HELP." PT USES [facility] AT [place], BUT IS AGREEABLE TO USING [facility] IF IT IS CHEAPER. THEY HAD NO QUESTIONS/CONCERNS FOR THIS WORKER.
[2016-11-02 14:48] VITALS: BP 125/71; PULSE 105; RESP 18; TEMP 96.5; O2SAT 98
[2016-11-02 15:21] VITALS: BP 130/84
--- NOTE | 2016-11-02 16:02 | NUR ---
CM CALLED [facility] AGAIN. SPOKE WITH LABORER [employer]; HE RELAYED PRIVATE PAY COSTS, AND THAT THEY DO ACCOMMODATE PRIVATE PAY. HE SAID THE FAMILY CAN CALL AND ARRANGE THE DETAILS. LEFT MESSAGE WITH THE [employer]; RE, COULD PT QUALIFY? CALLED PT'S SISTER IN LAW, REVIEWED THE DC PLAN OF HOME TOMORROW. SHE WAS AGREEABLE TO THIS. SHE SAID THEY COULD PROBABLY ASSIST WITH MEDS IF NEEDED THIS MONTH. ALSO DISCUSSED THIS WORKER REACHING OUT TO [facility] WHERE PT GOES TO SEE HER DOCTOR, FOR RESOURCES. LEFT MESSAGE WITH [facility].
--- NOTE | 2016-11-02 16:27 | PNPDOC ---
Subjective Date DATE: 11/02/16 TIME: 16:18 Subjective Heather reports feeling well today. Her [id number] asked about vision changes experienced first the last couple of months but in retrospect her indicates she's been having trouble with her vision for the past year. She continues to have left shoulder pain with any movement. She denied dizziness, nausea, or dyspnea. Objective Vital Signs Vital signs Vital Signs Date Time Temp Pulse Resp B/P Pulse Ox O2 Delivery O2 Flow Rate FiO2 11/02/16 15:21 130/84 11/02/16 14:48 96.5 105 18 98 Room Air NAD, alert Left upper and mid chest wall tender to palpation posteriorly, even to light touch Regards left arm position, avoids use of left arm Respirations nonlabored, breath sounds clear Regular rhythm, S1-S2 Abdomen soft, nontender +1 bilateral lower extremity edema Telemetry Rhythm: Sinus Rhythm, Sinus Tachycardia Height (Feet): 5 Height (Inches): 6.00 Weight (Kilograms): 77.600 Laboratory Laboratory Laboratory Tests 11/02/16 06:31 Laboratory Tests 11/02/16 06:31 MCV 109.7 (115 on admission), hemoglobin improved from 10.6 Calcium 10.2 Sepsis Diagnostic Criteria Sepsis Confirmed/Suspected Infection: No Assessment & Plan Problems: (1) Weakness Status: Acute Assessment & Plan: Improving. Secondary to multiple nutritional deficiencies. Continue physical therapy. 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 [place] (3) Left shoulder pain Status: Acute Qualifiers: Chronicity: acute Qualified Codes: M25.512 - Pain in left shoulder Assessment & Plan: Steroid injection per orthopedics 10/28/16; probable rotator cuff tear (4) Hypercalcemia Status: Resolved (5) Edema Status: Acute (6) Fracture of neck of fibula Status: Chronic Qualifiers: Encounter type: subsequent encounter Assessment & Plan: Subacute (7) Pulmonary nodule Status: Chronic Assessment & Plan: Right lung mass-pathology benign with patchy intra-alveolar hemosiderin laden macrophage clusters; 3 month follow-up CT recommended (8) B12 deficiency Status: Acute (9) Folic acid deficiency Status: Acute (10) Vitamin B6 deficiency Status: Acute (11) Thiamine deficiency Status: Acute (12) Vitamin A deficiency Status: Acute (13) Vitamin D deficiency Status: Acute (14) Tachycardia Status: Chronic (15) Hyponatremia Status: Resolved Assessment Continues to improve clinically. Both PT/OT have cleared Heather for discharge home with wheelchair and walker. Case management is coordinating the wheelchair for delivery to the hospital tomorrow at which point she'll be stable for discharge. Will continue to require multiple oral nutritional supplements with outpatient follow-up. Discussed with Heather and her . Landlord is arranging for accommodations at home. Hypercalcemia improved, will require outpatient follow-up but likely related to immobility. Left shoulder continues to limit activities somewhat, will require reassessment at a later time. Plan/Intensity of Service Discussed with multiple family members and case management. Laboratory data reviewed. Code Status Full Code Hospital Course Summary Disclaimer The hospital course summary below is not to be considered part of the above Progress Note. Hospital Course Summary 10/16 Patient admitted to swing bed to continue strengthening/PT/OT. Nutritional replacement initiated in conjunction with gabapentin for neuropathic pain. Regular diet with fluid restriction for her chronic hyponatremia. Monitor electrolytes. Follow-up to be scheduled with [facility] neurology. Repeat chest x-ray in a.m. due to reported small pneumothorax 10/15. 10/24/2016 Patient is improving in strength and stability. Working with physical therapy and occupational therapy. She does have incredibly elevated MCV initially at 115. Continue with supplementation of folate, thiamine, B-12. Looking towards discharged opportunity. 10/25/16- SWING status *Multiple supplement deficiency. Continue IV/IM replacement of B12, Thiamine, Folate. Reassess levels for progress. Assess Selenium for deficiency as well. Start aggressive Vit D replacement. Nutritional support. *Neuropathy Continue Gabapentin for pain control. Supplement replacement. *Tachyarrhythmia- EKG reviewed. Assess Selenium Assess TSH. Add low dose metoprolol for HR control. *Left knee pain, weakness- Encourage brace. Assess plain films. PT/OT. Overall, she is doing well. Continue supportive care. Repeat labs in AM. 10/26/16 Continued multiple vitamin and mineral supplementation Continue with Neurontin 800 milligrams 3 times a day for extremity tingling and discomfort. Monitor blood pressure and tachycardia. Continue on beta diaz, Lopressor 6.25 milligrams twice a day. Continue work with PT and OT for ongoing strengthening. She did have a fall yesterday morning when her knee "gave out" CBC and chemistry this morning normal. Discuss further with attending, Dr Coburn 10/27/16 Will increase Lopressor to 12.5mg BID for better cardiac rate control. Monitor for bradycardia or hypotension. Continue with [place] for pain control as well as Flexeril and gabapentin. Encouraged use of heat pack for comfort All mineral and vitamin supplementation switched to oral Given lower extremity edema. Continue with 20 of Lasix daily, and continue to monitor daily weight. Continue to encourage work with PT and OT for ongoing strengthening. 10/28/16 Continue to monitor pulse and blood pressure on increase Lopressor. No evidence of bradycardia, pulse consistently 100 Given continued minimal pain control will increase [place] to 10 mg 1-2 tabs as needed in addition to Flexeril and gabapentin Shoulder X-ray did not reveal any acute fractures, with mention of mild osteoarthrosis of AC joint. Orthopedic team to evaluate patient today. Continue with oral mineral and vitamin supplementation oral Lasix 20 mg daily for ongoing diuresing. Continue to monitor daily weight. Will recheck BMP tomorrow morning to follow electrolytes and renal function Continue to encourage work with PT and OT for ongoing strengthening. 10/30/16 Physical therapy reports that patient's gait is improving. Continue therapy. Left shoulder symptoms limit progress particularly with occupational therapy. May eventually require MRI and consideration of reverse shoulder arthroplasty. Continue replacement of multiple vitamins. Tachycardia slightly improved-echo pending, discussed with Dr. North. Reassess hemoglobin and electrolytes early next week. 11/01/16 Will add Lidoderm patch topically for additional pain control to left shoulder. Continue with [place] 10 for pain control. Appreciate orthopedic evaluation and recommendations. She received a subacromial injection on 10/28. System mild tachycardia. ECHO read pending-preliminary verbal report normal. Continue on Lopressor 12.5 milligrams twice a day. Blood pressure well controlled. Continue to encourage work with PT/OT for continued strength gaining. 11/02/16 Continues to improve clinically. Both PT/OT have cleared Heather for discharge home with wheelchair and walker. Case management is coordinating the wheelchair for delivery to the hospital tomorrow at which point she'll be stable for discharge. Will continue to require multiple oral nutritional supplements with outpatient follow-up. Discussed with Heather and her . Landlord is arranging for accommodations at home. Hypercalcemia improved, will require outpatient follow-up but likely related to immobility. Left shoulder continues to limit activities somewhat, will require reassessment at a later time. ROLAND COBURN MD November 02, 2016 16:22
[2016-11-02] MEDS ORDERED: LIDO700A3 TOP (17:52)
[2016-11-02] MEDS ORDERED: ERGO500044 PO (17:52)
[2016-11-02] MEDS ORDERED: HYDR-4078 PO (17:52)
[2016-11-02] MEDS ORDERED: METO25TA6 PO (17:52)
[2016-11-02] MEDS ORDERED: CYAN10009 PO (17:52)
[2016-11-02] MEDS ORDERED: GABA-354 PO (17:52)
[2016-11-02] MEDS ORDERED: GABA-329 PO (17:52)
[2016-11-02] MEDS ORDERED: THIA100T13 PO (17:52)
[2016-11-02] MEDS ORDERED: FURO20TA4 PO (17:52)
[2016-11-02] MEDS ORDERED: PYRI25TA4 PO (17:52)
[2016-11-02] MEDS ORDERED: FOLI1TAB15 PO (17:52)
--- NOTE | 2016-11-02 18:07 | NUR ---
WHEELCHAIR WHEELCHAIR DELIVERED FOR HOME USE IS A SAFETY HAZARD. BREAKS ARE NOT LOCKING WHEELS SUFFICIENTLY, RIGHT FOOT SUPPORT IS STUCK IN HORIZONTAL POSITION. MESSAGE LEFT WITH [employer].
--- NOTE | 2016-11-02 19:34 | NUR ---
SHIFT SUMMARY PT ALERT AND ORIENTED X3. PT ON RA, DENIES SOA. RATES PAIN 3/10 AT THIS TIME, DENIES NEED FOR PAIN MEDICATIONS. UP WITH ASSIST X1, GAIT BELT, WALKER. PT'S HELPS STAFF ASSIST WITH PT. IVL RIGHT FOREARM PATENT. ADEQUATE URINE OUTPUT. PT ABLE TO MAKE NEEDS KNOWN. BED ALARM ON, CALL LIGHT WITHIN REACH.
[2016-11-02 20:00] VITALS: PULSE 105; RESP 18
[2016-11-02] MEDS: LIDOCAINE PATCH REMOVAL TOP SCH (21:00)
[2016-11-03 00:44] VITALS: BP 115/66; PULSE 86; RESP 16; TEMP 97; O2SAT 100
--- NOTE | 2016-11-03 01:09 | NUR ---
SHIFT SUMMARY PT A/O X3. PLEASANT AND COOPERATIVE WITH CARES. PT LOOKING FORWARD TO GOING HOME TO BE WITH HER CAT. CONTINUES TO STAY WITH PT. W/C RECEIVED FROM [facility] IS NOT GOING TO WORK FOR PT. THE BRAKES DO NOT LOCK AND FOOT PEDAL IT BROKE. WILL PASS ON IN REPORT TO DAY SHIFT NURSE CONCERNING THE SAFETY OF THE W/C. PT CALLS FOR SBA. PT TRANSFERS WITH GAIT BELT AND FWW WITH STAND BY ASSIST. PT REQUEST PAIN MEDICATION AT BED TIME. 2-LIDOCAINE PATCHES REMOVED FROM LEFT SHOULDER. CALL LIGHT WITHIN REACH.
[2016-11-03 08:00] VITALS: BP 113/67; PULSE 105; RESP 16; RESP 17; TEMP 97; O2SAT 96
[2016-11-03] MEDS: THIAMINE 100 MG TABLET PO SCH (08:15)
[2016-11-03] MEDS: CYANOCOBALAMIN (B-12) 500mcg TABLET PO SCH (08:15)
[2016-11-03] MEDS: FUROSEMIDE 20 MG TABLET PO SCH (08:16)
[2016-11-03] MEDS: FOLIC ACID 1 MG TABLET PO SCH (08:16)
[2016-11-03] MEDS: PYRIDOXINE 100 MG TABLET PO SCH (08:16)
[2016-11-03] MEDS: MULTIVITAMIN + MINERAL TABLET PO SCH (08:16)
[2016-11-03] MEDS: GABAPENTIN 400 MG CAPSULE PO SCH (08:17)
[2016-11-03] MEDS: LIDOCAINE 5% PATCH TOP SCH (08:18)
[2016-11-03] MEDS: OMEPRAZOLE 20 MG CAPSULE PO SCH (08:20)
--- NOTE | 2016-11-03 11:40 | PNPDOC ---
Subjective Date DATE: 11/03/16 TIME: 11:31 Subjective F/U: Weakness, polyneuropathy Doing well today. Strength improving, tolerating activities; able to move more and better. Breathing well. No chest pain. Eating well. No f/c. Feels ready to go home. Objective Vital Signs Vital signs Vital Signs Date Time Temp Pulse Resp B/P Pulse Ox O2 Delivery O2 Flow Rate FiO2 11/03/16 08:00 105 16 11/03/16 08:00 97.0 113/67 96 Room Air Telemetry Rhythm: Sinus Rhythm, Sinus Tachycardia Height (Feet): 5 Height (Inches): 6.00 Weight (Kilograms): 78.100 General General Appearance: Alert, Orientated x 3, Overweight, Well Nourished, Well Developed, Cooperative, No Acute Distress, Moderate Distress Eyes (Brief) Eyes: FOUND: EOMI, PERRL, NOT FOUND: scleral icterus ENMT (Brief) ENMT: FOUND: hearing intact, mucosa moist Neck (Brief) Neck: FOUND: midline, NOT FOUND: nuchal rigidity, spasm Respiratory (Brief) Respiratory: FOUND: clear all appiah, equal bilaterally, NOT FOUND: rales, wheezes Cardiovascular (Brief) Cardiac: FOUND: regular rate, regular rhythm Abdomen (Brief) Abdominal: FOUND: BS normo active x4, soft, NOT FOUND: tender Extremities (Brief) Extremity : Side: Bilateral Extremity: leg Extremity Finding: FOUND: edema (+1 ) Musculoskeletal (Brief) Musculoskeletal: NOT FOUND: spasm Integumentary (Brief) Integumentary: FOUND: dry, warm Neurologic (Brief) Neurological: FOUND: cranial 2-12 intact, motor (Intact ) Psychiatric (Brief) Psychiatric: FOUND: alert, attentive, normal affect, oriented Laboratory Laboratory Laboratory Tests 11/02/16 06:31 Laboratory Tests 11/02/16 06:31 Sepsis Diagnostic Criteria Sepsis Confirmed/Suspected Infection: No Assessment & Plan Problems: (1) Weakness Status: Acute Assessment & Plan: Improving. Secondary to multiple nutritional deficiencies. Continue physical therapy. 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 [place] (3) Left shoulder pain Status: Acute Qualifiers: Chronicity: acute Qualified Codes: M25.512 - Pain in left shoulder Assessment & Plan: Steroid injection per orthopedics 10/28/16; probable rotator cuff tear (4) Hypercalcemia Status: Resolved (5) Edema Status: Acute (6) Fracture of neck of fibula Status: Chronic Qualifiers: Encounter type: subsequent encounter Assessment & Plan: Subacute (7) Pulmonary nodule Status: Chronic Assessment & Plan: Right lung mass-pathology benign with patchy intra-alveolar hemosiderin laden macrophage clusters; 3 month follow-up CT recommended (8) B12 deficiency Status: Acute (9) Folic acid deficiency Status: Acute (10) Vitamin B6 deficiency Status: Acute (11) Thiamine deficiency Status: Acute (12) Vitamin A deficiency Status: Acute (13) Vitamin D deficiency Status: Acute (14) Tachycardia Status: Chronic (15) Hyponatremia Status: Resolved Plan/Intensity of Service Will d/c to home - medically stable. Continue current medications. Encourage continued strengthening activities. F/U with PCP in 1 week. See orders for details. Case discussed with CM and pt's . DVT Prophylaxis: SCD'S Code Status Full Code Hospital Course Summary Disclaimer The hospital course summary below is not to be considered part of the above Progress Note. Hospital Course Summary 10/16 Patient admitted to swing bed to continue strengthening/PT/OT. Nutritional replacement initiated in conjunction with gabapentin for neuropathic pain. Regular diet with fluid restriction for her chronic hyponatremia. Monitor electrolytes. Follow-up to be scheduled with [facility] neurology. Repeat chest x-ray in a.m. due to reported small pneumothorax 10/15. 10/24/2016 Patient is improving in strength and stability. Working with physical therapy and occupational therapy. She does have incredibly elevated MCV initially at 115. Continue with supplementation of folate, thiamine, B-12. Looking towards discharged opportunity. 10/25/16- SWING status *Multiple supplement deficiency. Continue IV/IM replacement of B12, Thiamine, Folate. Reassess levels for progress. Assess Selenium for deficiency as well. Start aggressive Vit D replacement. Nutritional support. *Neuropathy Continue Gabapentin for pain control. Supplement replacement. *Tachyarrhythmia- EKG reviewed. Assess Selenium Assess TSH. Add low dose metoprolol for HR control. *Left knee pain, weakness- Encourage brace. Assess plain films. PT/OT. Overall, she is doing well. Continue supportive care. Repeat labs in AM. 10/26/16 Continued multiple vitamin and mineral supplementation Continue with Neurontin 800 milligrams 3 times a day for extremity tingling and discomfort. Monitor blood pressure and tachycardia. Continue on beta diaz, Lopressor 6.25 milligrams twice a day. Continue work with PT and OT for ongoing strengthening. She did have a fall yesterday morning when her knee "gave out" CBC and chemistry this morning normal. Discuss further with attending, Dr Coburn 10/27/16 Will increase Lopressor to 12.5mg BID for better cardiac rate control. Monitor for bradycardia or hypotension. Continue with [place] for pain control as well as Flexeril and gabapentin. Encouraged use of heat pack for comfort All mineral and vitamin supplementation switched to oral Given lower extremity edema. Continue with 20 of Lasix daily, and continue to monitor daily weight. Continue to encourage work with PT and OT for ongoing strengthening. 10/28/16 Continue to monitor pulse and blood pressure on increase Lopressor. No evidence of bradycardia, pulse consistently 100 Given continued minimal pain control will increase [place] to 10 mg 1-2 tabs as needed in addition to Flexeril and gabapentin Shoulder X-ray did not reveal any acute fractures, with mention of mild osteoarthrosis of AC joint. Orthopedic team to evaluate patient today. Continue with oral mineral and vitamin supplementation oral Lasix 20 mg daily for ongoing diuresing. Continue to monitor daily weight. Will recheck BMP tomorrow morning to follow electrolytes and renal function Continue to encourage work with PT and OT for ongoing strengthening. 10/30/16 Physical therapy reports that patient's gait is improving. Continue therapy. Left shoulder symptoms limit progress particularly with occupational therapy. May eventually require MRI and consideration of reverse shoulder arthroplasty. Continue replacement of multiple vitamins. Tachycardia slightly improved-echo pending, discussed with Dr. North. Reassess hemoglobin and electrolytes early next week. 11/01/16 Will add Lidoderm patch topically for additional pain control to left shoulder. Continue with [place] 10 for pain control. Appreciate orthopedic evaluation and recommendations. She received a subacromial injection on 10/28. System mild tachycardia. ECHO read pending-preliminary verbal report normal. Continue on Lopressor 12.5 milligrams twice a day. Blood pressure well controlled. Continue to encourage work with PT/OT for continued strength gaining. 11/02/16 Continues to improve clinically. Both PT/OT have cleared Heather for discharge home with wheelchair and walker. Case management is coordinating the wheelchair for delivery to the hospital tomorrow at which point she'll be stable for discharge. Will continue to require multiple oral nutritional supplements with outpatient follow-up. Discussed with Heather and her . Rosa Isela is arranging for accommodations at home. Hypercalcemia improved, will require outpatient follow-up but likely related to immobility. Left shoulder continues to limit activities somewhat, will require reassessment at a later time. 11/03 Doing well today. Strength improving, tolerating activities; able to move more and better. Breathing well. No chest pain. Eating well. No f/c. Feels ready to go home. Will d/c to home - medically stable. Continue current medications. Encourage continued strengthening activities. F/U with PCP in 1 week. See orders for details. TRCAIE DUONG MD November 03, 2016 11:34
[2016-11-03] MEDS ORDERED: GABA-354 PO (11:41)
--- NOTE | 2016-11-03 12:40 | NUR ---
DISMISSAL SUMMARY PT WAS GIVEN DISMISSAL INSTRUCTIONS BY THIS RN, BOTH PATIENT AND STATED UNDERSTANDING. PTS IV WAS DC'D AND SLING WAS PROVIDED SO THAT PT CAN WEAR AT HOME, INSTRUCTIONS ON THAT WERE ALSO GIVEN. PRESCRIPTIONS WERE HANDED TO PT. PT WAS WHEELED TO CAR BY AID.
--- NOTE | 2016-11-03 13:53 | NUR ---
CM PRIOR TO DISMISSAL, THIS WORKER MET WITH PT AND SPOUSE. REVIEWED DME; THE WHEELCHAIR PROVIDED BY [facility] DID NOT WORK OUT. THIS WORKER PROVIDED OPTIONS (PRIVATE PAY AT [employer] OR [employer]; OR LOANER AT NO COST THROUGH [employer] OR [employer]). THEY SAID THEY WANTED TO USE [employer]; PT CALLED HER MOTHER IN LAW, AND HANDED PHONE TO THIS WORKER; THIS WORKER PROVIDED CONTACT INFO FOR HER TO GENERAL OFFICE ASSISTANT THE WHEELCHAIR AT [employer]. REVIEWED MEDICATIONS; PROVIDED PT WITH COUPONS FOR PRESCRIPTIONS THROUGH [employer] ([facility] WAS [employer]). REVIEWED HOME HEALTH INFORMATION; PROVIDED HER CONTACT INFO AND [employer]OT[employer] IN THE EVENT THAT THEY WANTED TO PAY PRIVATELY AND HAD FAMILY SUPPORT TO ASSIST WITH THIS. THEY STATED THEY FEEL VERY GOOD ABOUT RETURNING HOME AND SPOUSE TAKING CARE OF HER. SPOUSE STATED THAT HE HAS A COLLECTION OF VARIOUS HOME PHYS THERAPY EXCERCISES FROM WHEN HE WAS GOING THROUGH THIS, AND HE WILL USE THIS WITH PT. THIS WORKER CALLED [facility], SPOKE WITH JESÚS, AND SCHEDULED A FOLLOW UP APPOINTMENT WITH SAMUEL ECHEVARRIA ON , 9:30 AM. JESÚS ALSO SAID SHE WILL FOLLOW UP WITH THEIR [employer]ER FOR ADDITIONAL COMMUNITY RESOURCES PT MIGHT BENEFIT FROM. THIS WORKER PROVIDED ALL OF THIS IN WRITING TO PT. THEY HAD NO FURTHER QUESTIONS/NEEDS FOR THIS WORKER. SPOKE WITH RN; RE: ORDER FOR ARM SLING FOR PT. SHE AGREED TO FOLLOW UP AND PROVIDE THIS TO PT.
--- NOTE | 2016-11-04 08:02 | ECHOF ---
DATE 10/29/2016 INDICATION Tachycardia, abnormal EKG. TECHNICAL QUALITY Technically overall good 2-D, M-mode, Doppler echocardiographic images were submitted for interpretation. It is limited by the presence of tachycardia throughout. FINDINGS 1. CARDIAC CHAMBERS. All cardiac chamber measurements are normal. Aortic root diameter is normal. RV size and contractility appear normal. 2. LEFT VENTRICLE. Analysis reveals wall thickness is normal. Wall motion analysis is normal. Systolic function is normal. EF appears hyperdynamic. Ejection fraction measures 68%, visually estimated about 75-80%. 3. VALVES. Aortic, mitral and tricuspid valve structure and motion appear normal for age with normal valve excursion. Very minimal sclerosis seen at the mitral annulus. 4. DOPPLER. Shows normal flow velocities throughout, mild tricuspid regurgitation with estimated systolic PA pressure of 27 mmHg. This is normal. Normal flow velocities throughout. 5. No evidence of pericardial effusion, intracardiac masses, thrombi, vegetations or shunts. IMPRESSION 1. Hyperdynamic left ventricle in settings of sinus tachycardia. Ejection fraction is estimated at 75%, and no significant valvular dysfunction. 2. Low to normal central venous pressure (based on IVC) and normal systolic PA pressure. 3. Diastolic function could not be assessed due to E and A wave merger caused by tachycardia. MTDD
--- NOTE | 2016-11-04 10:21 | DSF ---
ADMISSION DIAGNOSIS Weakness. DISCHARGE DIAGNOSIS Weakness - improved. ASSOCIATED CONDITIONS AND COMPLICATIONS Polyneuropathy. Left shoulder pain. Hypercalcemia (not present on admission) - resolved. Edema. Subacute fracture of neck of fibula. Pulmonary nodule. Vitamin B12 deficiency. Folic acid deficiency. Vitamin B6 deficiency. Vitamin A deficiency. Vitamin D deficiency. Hyponatremia - resolved. Tachycardia. Overweight. CONSULTS Dr. Gomez - Orthopedic Surgery PT/OT. PROCEDURES Echocardiogram - Verbal report is normal, full report pending at time of discharge. Left shoulder injection with lidocaine, Marcaine and betamethasone - Chandra Diaz/Dr. Gomez. CLINICAL RESUME Heather Foss is a 56-year-old female who was placed in swing bed at [facility] for restorative care and treatment of her weakness and painful neuropathy. She has a 3-month history of progressive weakness in bilateral lower extremities. Associated with this is painful ascending paresthesias. Symptoms are far greater in her legs than upper extremities, but she does note some numbness in her hands and minor weakness and has reported dropping things intermittently. Weakness progressed to the point that the patient was essentially nonambulatory and had fallen multiple times. She was seen in local emergency room in [place] (patient resides in [place]) three times and discharged to home. CT head was negative. Due to progression of her symptoms she was ultimately transferred to [facility] where she was admitted from October 08 to October 16. During that time she underwent extensive evaluation. There is report of low vitamin B12 level prior to hospitalization, although it is unconfirmed - B12 supplementation was initiated prior to admission at [facility]. While hospitalized at [place] she did have neurological and oncological consultation. She underwent lumbar puncture (with protein slightly elevated at 71 and one white cell), biopsy of 5-mm right upper lung mass with resultant pneumothorax leading to chest tube placement. She did undergo nerve conduction testing on the showing evidence of sensory neuropathy but no evidence of demyelinization. MRI of spine was limited by motion artifact, but no concerning lesions other than mild bulge at C3-C4 and L4-L5. There was no abnormal cord enhancement. Her lab there did show vitamin B12 level of 498 (following initiation of supplementation). Folic acid was 2.5. B6 was 3 (normal 5-50). Thiamine decreased at 66 with normal 70-180. Vitamin A was 29 (normal 32.5-78). Vitamin D is low- normal at 8.2. Heavy metal screen was obtained with slight elevation of lead at 5.5. Paraneoplastic panel was negative. Pathology on lung biopsy is pending at time of discharge - the patient will be following up with Dr. Pablo Hubbard Jr. Ultimately she did stabilize but was still needing help with strengthening. Arrangements were made for her to be discharged to [facility] for swing care. She presents describing weakness in her lower extremity which is far greater than upper extremities. She has painful neuropathy in her legs as well as the palms of her hands. She describes a sensation of hot pins and needles sticking all over. This sensation makes it particularly painful to walk. At presentation she did not feel her strength was any better than it was prior to hospitalization, but is able to walk short distances using a walker. She occasionally will drop items, but for the most part has fairly normal upper extremity strength. She reports occasional lightheadedness and dyspnea with activities. Discharge diagnosis at the time of transfer was nutritional deficiencies. For complete details of the H&P, refer to that document. LABORATORY White blood count is 5.9 with hemoglobin 10.6, hematocrit 32.2, MCV 115 and platelets 381,000. Serum sodium is 136, potassium 4.8, chloride 103, CO2 26, BUN 7 with creatinine 0.6, GFR 104 and blood glucose 96. Initial calcium was 10.0, increasing to 10.7 during hospitalization. Magnesium slightly elevated at 2.4. Phosphorus is normal at 4.3. Vitamin B1 level was 174 (within expected range). Vitamin B12 is greater than 1000. Folate is 7.9 (low normal - 2.76 to 20 normal). TSH is normal at 3.09. Selenium is normal at 137 (reference range 70-150). HOSPITAL COURSE The patient was placed in swing bed status at [facility] under the care of Dr. Coburn. Nutritional replacement was initiated. Neurontin was initiated to help with her neuropathic pain. She was placed on regular diet with fluid restriction given her chronic hyponatremia. Electrolytes were monitored. A repeat chest x-ray was obtained secondary to small pneumothorax noted from 10/15/2016. Repeat chest x-ray showed no evidence of pneumothorax. SCDs were initiated for DVT prophylaxis. PT, OT were consulted to help increase strength and functional abilities. Overall her hospital course was one of gradual improvement. During the hospitalization we did work with Neurontin to help improve pain control. She did have persistent tachycardia. Echocardiogram was obtained showing no rosalva lola abnormalities. She was initiated on Lopressor and this was titrated upward during the hospitalization. She did develop left shoulder pain and discomfort and, for this reason, Dr. Gomez was consulted. She was seen by Chandra Diaz who thought it was likely a recurrent rotator cuff tear. He did give trial of corticosteroid injection but this caused no significant improvement. He recommended minimal immobilization (for fear of causing frozen shoulder). If her health would continue to improve, he recommended further evaluation with MRI down the road to help assess any further surgical options. Orthopedic surgery did not feel patient was a good surgical candidate at this time. The patient did participate well with PT and OT and made gains in her strength and functional ability. Respiratory status did well during the hospitalization as did her vitals. Her hemoglobin improved, being 12.0 by time of discharge with MCV decreasing from 115 down to 109. Calcium did show slight elevation but normalized to 10.2. Renal function remained stable. By time of discharge she was making good gains with ambulation. Her weakness was improving to the point where she felt she could function well at home. Vitals were stable and she was afebrile. She was able to be discharged to home in stable condition. DISCHARGE CONDITION Stable/good. DIET Regular. ACTIVITIES As tolerated - May use sling to left shoulder as needed for short periods of time. FOLLOWUP The patient will follow with Jocelyne Gambino on 11/10/2016 at 10:30 a.m. for medical reevaluation. INSTRUCTION TO PATIENT Patient was instructed on her diagnosis and treatments provided. She was encouraged to continue to work diligently on strengthening exercises as taught by PT and OT. She was encouraged on healthy well-rounded diet and activity. We encouraged her to refrain from smoking and alcohol use. She will watch for temperature greater than 100.4. Should problems or need occur, she will be in contact with her primary provider. If symptoms become quite dire she can present to emergency room for acute evaluation. She voiced understanding of the above. Time spent with discharge greater than 35 minutes. CHASITY
[2016-12-29] MEDS ORDERED: CYANOCOBALAMIN (B-12) 1000mcg/ml INJECTION IM SCH (09:00)
== END 2016-11-03 12:40 | disposition home or self-care (01) | DRG 948 ==
LOC: MED 16:20
PROVIDERS: ADMIT Internal Medicine; ATTEND Internal Medicine
PROC: 3E0U33Z Introduction of Anti-inflammatory into Joints, Percutaneous Approach (ICD-10-PCS; principal; 2016-10-28)
PROC: 3E0U3BZ Introduction of Anesthetic Agent into Joints, Percutaneous Approach (ICD-10-PCS; 2016-10-28)
DX: R53.1 Weakness (principal); E87.1 Hypo-osmolality and hyponatremia; E51.9 Thiamine deficiency, unspecified; G62.9 Polyneuropathy, unspecified; M25.512 Pain in left shoulder; R00.0 Tachycardia, unspecified; E83.52 Hypercalcemia; M25.562 Pain in left knee; G89.29 Other chronic pain; R60.0 Localized edema; R91.1 Solitary pulmonary nodule; E50.9 Vitamin A deficiency, unspecified; E53.8 Deficiency of other specified B group vitamins; E53.1 Pyridoxine deficiency; K21.9 Gastro-esophageal reflux disease without esophagitis; S82.832D Other fracture of upper and lower end of left fibula, subsequent encounter for closed fracture with routine healing; Z72.0 Tobacco use; E66.3 Overweight; Z68.27 Body mass index [BMI] 27.0-27.9, adult
CPT/HCPCS: 36415; 80048; 80069; 82330; 82607; 82746; 83735; 84255; 84425; 84443; 84484; 85007; 85025; 85027; 93005; 93306; 99406